=== PATIENT | male | born 1975 | race Caucasian/White ===

== ENCOUNTER → 2025-02-17 13:55 | Outpatient (REF) | payer OTHER, SELFPAY | LOC: HWRAD 13:55 | PROVIDERS: ATTENDING PHYSICIAN Thoracic Surgery (Cardiothoracic Vascular Surgery); FAMILY PHYSICIAN Family Medicine | DX: I25.10 Atherosclerotic heart disease of native coronary artery without angina pectoris (principal); Z01.810 Encounter for preprocedural cardiovascular examination | CPT/HCPCS: 71250 ==

== ENCOUNTER → 2025-02-20 14:41 | Outpatient (REF) | payer OTHER, SELFPAY | LOC: HWRCS 14:41 | PROVIDERS: ATTENDING PHYSICIAN Thoracic Surgery (Cardiothoracic Vascular Surgery); FAMILY PHYSICIAN Family Medicine | DX: I25.10 Atherosclerotic heart disease of native coronary artery without angina pectoris (principal); Z01.810 Encounter for preprocedural cardiovascular examination | CPT/HCPCS: 93306 ==

== ENCOUNTER 2025-02-24 17:36 | Inpatient (IN) | payer OTHER, SELFPAY ==
[2025-02-21 12:08] VITALS: BMI 29.8
[2025-02-21 12:59] LABS: Urine Albumin 2+ (Neg - Trace); Urine Bilirubin 1+ (Negative); Urine Character Clear (Clear); Urine Color Yellow; Urine Glucose Negative (Negative); Urine Ketone 1+ (Negative); Urine Leukocyte 2+ (Negative); Urine Nitrite Negative (Negative); Urine Occult Blood Negative (Negative); Urine Specific Gravity 1.015 (<1.030); Urine Urobilinogen 1+ (Neg - 1+)
[2025-02-21 13:01] LABS: % Basophils 0.8 % (0-2); % Eosinophils 3.3 % (0-6); % Immature Granulocytes 0.3 % (0-0.5); % Lymphocytes 15.1 % (20.5-51.1); % Monocytes 12.9 % (1.7-9.3); % Neutrophils 67.6 % (42.2-75.2); Absolute Basophils 0.1 10^3/uL (0-0.2); Absolute Eosinophils 0.2 10^3/uL (0-0.7); Absolute Monocytes 0.8 10^3/uL (0.1-0.6); Absolute Neutrophils 4.3 10^3/uL (1.4-6.5); Hematocrit 32.9 % (39.0-52.0); Hemoglobin 10.3 g/dL (13.0-18.0); Mean Corp Hgb Conc. 31.3 g/dL (33.0-37.0); Mean Corpuscular Hgb 23.6 pg (27.0-31.0); Mean Corpuscular Volume 75.3 fL (80.0-94.0); Mean Platelet Volume 8.9 fL (7.4-10.4); Nucleated Red Blood Cells % 0 % (-); Platelet Count 315 10^3/uL (130-400); Red Blood Cell Count 4.37 10^6/uL (4.70-6.10); Red Cell Dist. Width 15.6 % (11.5-14.5); White Blood Cell Count 6.4 10^3/uL (4.8-10.8)
[2025-02-21 13:06] LABS: APTT 25.8 Sec (23.4-35.0); INR 0.95
[2025-02-21 13:18] LABS: ALT (SGPT) 13 U/L (0-50); AST (SGOT) 23 U/L (17-59); Albumin 4.2 g/dl (3.5-5.0); Alkaline Phosphatase 44 U/L (38-126); Blood Urea Nitrogen 7 mg/dl (9-20); Calcium 8.7 mg/dl (8.4-10.2); Carbon Dioxide 25 mmol/L (22-30); Chloride 103 mmol/L (98-107); Direct Bilirubin 0.3 mg/dl (0.0-0.4); Estimated Creatinine Clearance 119 ml/min; Glucose 108 mg/dl (70-99); Potassium 4.2 mmol/L (3.5-5.1); Sodium 137 mmol/L (135-145); Total Bilirubin 0.6 mg/dl (0.2-1.3); Total Protein 6.6 g/dl (6.3-8.2); eGFR > 60.00
[2025-02-21 13:23] LABS: Urine Mucus Few; Urine Squamous Cell 0-2 /LPF (Few)
[2025-02-21 13:24] LABS: Urine Bacteria Few (Negative); Urine Red Blood Cell 0-2 /HPF (0-2)
--- NOTE | 2025-02-21 13:39 | CM ---
Chart reviewed. Met with the patient in PAT. Reviewed preoperative and postoperative instructions and restrictions, along with the showering guidelines. Gave patient 2 soaps and Cardiac Surgery Book. Patient is agreeable to a home visit by CT
Transitional RN. Patient is independent of ADLS, lives alone in a 2 [address], 1 [address]AN[address], 0 DME. Patient said his sisters and girlfriend will be able to help when discharged. Plan is for the patient to return home with CT Transitional RN.
[2025-02-21 14:50] LABS: Glycohemoglobin (HgbA1c) 5.9 % (4.0-5.6)
[2025-02-24 14:21] VITALS: BP 143/85; BMI 29.9
--- NOTE | 2025-02-24 14:32 | ED.GENMED ---
History of Present Illness
General
Chief Complaint: Chest Pain
Source: patient
Exam Limitations: none
Time Seen by Provider: 02/24/25 14:31
Nursing documentation reviewed up to this point in time: agreed with
History of Present Illness
History of Present Illness:
49 yo male w h/o bipolar disorder, alcoholism, diabetic retinopathy, neuropathy, anxiety, PSD, CAD, IDDM, anemia, HTN, HLD, STEMI, GERD, diverticulitis with perforation and abscess, hemicolectomy with colostomy,, ileostomy, CABG with 1 stent 02/21 at
[facility], presents today for mid nonradiating chest pressure at 12 noon today while sitting at his computer, , no associated symptoms, after pain lasted for 20 minutes he took 4 baby aspirin and states the pain subsided immediately. No associated
symptoms such as diaphoresis, N/V, lightheadedness or shortness of breath. He states he is pain-free at this time
He is scheduled for triple bypass with Dr. Valdivia on 03/01
Past History
Past History
ED Past Medical History: IDDM and Psychiatric (Bipolar Disorder)
ED Past Surgical History: Appendectomy, Bowel resection, Cholecystectomy and Other (Hip Surgery)
Social History
Tobacco: Former smoker
Alcohol: None
Drug: Former user
Personal: Single
Living: alone
Employment: Employed
Review of Systems
Review of Systems
Allergies reviewed?: Yes
All Other Systems: ROS reviewed and negative except as documented in HPI and ROS
Constitutional: Denies fever or fatigue
Respiratory: Denies no symptoms
Cardiac: Reports chest pain; Denies diaphoresis or palpitations
ABD/GI: Denies abdominal pain or nausea
: Denies dysuria or difficulty voiding
Musculoskeletal: Reports no symptoms
Skin: Reports no symptoms
Neurological: Reports no symptoms
Phy Exam
Physical Exam
Physical Exam:
GENERAL: No acute distress. A&Ox3.
CONSTITUTIONAL: Afebrile.
EYES: clear, conjunctivae normal
ENMT: moist mucus membranes
RESPIRATORY: Regular respirations, nonlabored, lungs clear.
CARDIOVASCULAR: Regular rate and rhythm, no murmurs, no rubs.
GI: Soft, nontender, normal BS
MUSCULOSKELETAL: Moves with ease. Well perfused.
SKIN: Warm, dry, pink
PSYCH: Normal mood and affect. Well kept, interactive and appropriate
NEUROLOGIC: Awake, alert and oriented. No focal neurological deficits
Scores
Heart Score for Chest Pain Patients
STEMI patient?: Not applicable
Course
Orders/Labs/Results
Orders:
Orders
02/24/25 Breakfast
2000 calorie (17 carb) Diabetic
At Your Request: Full Participation
02/24/25 14:16
ECG [Electrocardiogram (*1)] Urgent
Reason for Study: Chest Pain
02/24/25 14:17
EKG- Treatment ONCE
02/24/25 14:32
Complete Blood Count/With Diff Urgent
Comprehensive Metabolic Panel Urgent
Troponin I Urgent
02/24/25 16:28
Cardiothoracic Surgery Consult Urgent
Consulting Provider: William Valdivia
Was physician already notified: Yes
Reason for Consult: CP, sched for bypass in 5 days
02/24/25 16:35
Protime/PTT Urgent
02/24/25 16:52
Lorazepam [Ativan] 0.5 mg PO NOW STA
02/24/25 16:54
CARDIOLOGY CONSULT Routine
Consulting Provider: Storm Watson
Was physician already notified: Yes
02/24/25 16:57
Admit/Transfer Patient As Directed
Co-Sign Provider:
Level of Care: Inpatient admission
Assign to:: Telemetry
Physician / Group: kailey
Diagnosis: chest pain
Reason for Telemetry: Chest Pain syndromes
Date to Stop Telemetry: 02/26/25
Time to Stop Telemetry: 11:00
Reason for Hospitalization: chest pain
Expected length of stay greater than two midnights?: Yes
ELOS- Estimated Length of Stay in days: 3
I certify the patient meets the requirements for IP care: Yes
PRN Pain Medication Management As Directed
May give lesser potent ordered pain med per pt: Yes
preference::
Protocol:: Medication orders for pain may be administered in a
manner that supports deferring to patient preference
when the pt is:
- Requesting an ordered lesser potent pain medication.
Least to most potent pain medications are defined
as: acetaminophen < NSAID < tramadol < opioids
(morphine, oxycodone, hydromorphone).
- Requesting a lesser dose of the same medication IF
ORDERED.
- Requesting a less intrusive route of administration
if both routes are prescribed by the provider (PO <
IV).
02/24/25 17:00
Code Status As Directed
Resuscitation Status: Full Code
02/24/25 17:03
Heparin Protocol- PTT Orders As Directed
PTT per Heparin protocol: -Obtain CBC and baseline PTT - if not already collected.
-Obtain PTT 6 hours from start of infusion. Then, every 6 hours until 2 consecutive
PTT's are therapeutic. Then, PTT Daily.
-With each rate change, obtain PTT every 6 hours until 2 consecutive PTT's are
therapeutic. Then, PTT Daily.
Notify MD As Directed
Notify physician if: PTT is greater than or equal to 200.
02/24/25 17:15
Heparin 78625 Units/250 ml 25,000 units in 250 ml IV PER PROTOCOL
Weight to be used for heparin protocol in kilograms (kg):: 100
Protocol:: Cardiac Tx/Acute Coronary
PTT Goal Range to be used:: PTT 73 to 111 seconds
Order type:: Initial
INITIAL Infusion Dose (UNITS/KG/hr) & then follow protocol:: 12 units/kg/hr
Infusion Dose in UNITS/hr & then follow protocol (UNITS/hr):: 1,000
INFUSION RATE in mL/hr & then follow protocol (mL/hr):: 10
PTT less than or equal to 64 seconds:: Increase rate by 200 units/hr (+ 2 mL/hr)
PTT 64.1 to 72.9 seconds:: Increase rate by 100 units/hr (+ 1 mL/hr)
PTT 73 to 111 seconds:: Target Range. No change in rate.
PTT 111.1 to 130.9 seconds:: Decrease rate by 100 units/hr (- 1 mL/hr)
PTT 131 to 199.9 seconds:: HOLD for 1 hr. Then decrease rate by 200 units/hr (- 2 mL/hr)
PTT greater than or equal to 200 seconds:: HOLD for 2 hrs & Notify Provider. Then decrease by 200 units/hr (-
2 mL/hr)
Lab follow-up:: Each change, PTT q6h until 2 consecutive are therapeutic. Then PTT
daily.
02/26/25 06:00
Complete Blood Count/No Diff Q2D
Comment: Notify MD if platelet count is <130,000 or decreases by 50% from baseline
02/26/25 11:00
DC Protocol for Telemetry ONCE
02/28/25 06:00
Complete Blood Count/No Diff Q2D
Comment: Notify MD if platelet count is <130,000 or decreases by 50% from baseline
03/02/25 06:00
Complete Blood Count/No Diff Q2D
Comment: Notify MD if platelet count is <130,000 or decreases by 50% from baseline
03/04/25 06:00
Complete Blood Count/No Diff Q2D
Comment: Notify MD if platelet count is <130,000 or decreases by 50% from baseline
03/06/25 06:00
Complete Blood Count/No Diff Q2D
Comment: Notify MD if platelet count is <130,000 or decreases by 50% from baseline
03/08/25 06:00
Complete Blood Count/No Diff Q2D
Comment: Notify MD if platelet count is <130,000 or decreases by 50% from baseline
03/10/25 06:00
Complete Blood Count/No Diff Q2D
Comment: Notify MD if platelet count is <130,000 or decreases by 50% from baseline
03/12/25 06:00
Complete Blood Count/No Diff Q2D
Comment: Notify MD if platelet count is <130,000 or decreases by 50% from baseline
Abnormal Lab Results
02/24/25
14:32
RBC 4.28 L 10^6/uL
(4.70-6.10)
Hgb 10.2 L g/dL
(13.0-18.0)
Hct 33.1 L %
(39.0-52.0)
MCV 77.3 L fL
(80.0-94.0)
MCH 23.8 L pg
(27.0-31.0)
MCHC 30.8 L g/dL
(33.0-37.0)
RDW 15.9 H %
(11.5-14.5)
Absolute Lymphs (auto) 0.7 L 10^3/uL
(1.2-3.4)
Lymphocytes % 11.7 L %
(20.5-51.1)
Monocytes % 10.3 H %
(1.7-9.3)
BUN 8 L mg/dl
(9-20)
Glucose 291 H mg/dl
(70-99)
Troponin I 0.044 H* ng/ml
Total Protein 6.1 L g/dl
(6.3-8.2)
02/24/25 17:03
02/24/25 14:32
Vital Signs
Initial and Last Documented VS:
Initial Vital Signs
Pulse Resp BP Pulse Ox
92 16 143/85 96
02/24/25 14:21 02/24/25 14:21 02/24/25 14:21 02/24/25 14:21
Last Documented Vital Signs
Temp Pulse Resp BP Pulse Ox
98.5 F 88 16 149/86 98
02/24/25 14:31 02/24/25 17:00 02/24/25 17:00 02/24/25 16:00 02/24/25 17:00
MDM/Problems Addressed
Differential Diagnosis Includes:
ACS, unstable angina
MDM/Problems Addressed:
49 yo male w h/o bipolar disorder, alcoholism, diabetic retinopathy, neuropathy, anxiety, PSD, CAD, IDDM, anemia, HTN, HLD, STEMI, GERD, diverticulitis with perforation and abscess, hemicolectomy with colostomy,, ileostomy, CABG with 1 stent 02/21 at
[facility], presents today for mid nonradiating chest pressure at 12 noon today while sitting at his computer, after lasting for 20 minutes he took 4 baby aspirin and states the pain subsided immediately. No associated symptoms such as diaphoresis, N/V,
lightheadedness or shortness of breath. He states he is pain-free at this time
EKG NSR, no change from previous
He is scheduled for triple bypass with Dr. Valdivia on 03/01
2:45 p.m.
CBC unremarkable, consistent with his baseline anemia
CMP: No clinically significant abnormality. Glucose 291
Troponin 0.044
3:45 PM:
Case presented via text to cardiothoracic surgeon Dr. Valdivia and shake table operator Dr. Hernandez
Pt updated
4:30 p.m.:
Cardiothoracic surgery PA notified of admission. CT consult in
Hospitalist notified of admission
Patient remained stable
*EKG
EKG Intrepretation Date: 02/24/25
Interpretation: normal
Heart Rate: 92
Rate: normal
Rhythm: sinus
[place]: normal axis
Interval: normal interval
QRS Pattern: normal QRS
Ischemia: no ischemia
*Critical Care Note
Total Time (30-74mins, 75-104mins- exclusive of procedures): Not Applicable
ED Attending Note
-
Portions of this chart may have been created with voice recognition software.� Occasional wrong word or��sound alike� substitutions may have occurred due to the inherent limitations of voice recognition software.
Discharge Plan
Departure
Patient Disposition: Admit
Date of Disposition: 02/24/25
Time of Disposition: 16:17
Admit to: Telemetry
Presentation/result/management discussed w/ accepting MD/DO: Hospitalist
Condition: Good
Discharge Problem:
Chest pain
Interventions
Interventions:
*Risk Screen - Suicide Last Done: 02/24/25 14:21
*General Assessment Last Done: 02/24/25 14:21
*Neglect/Abuse Screening Last Done: 02/24/25 14:21
*Nursing Disposition Last Done: 02/24/25 19:06
ED- Cardiac Assessment Last Done: 02/24/25 14:18
Discharge Date and Time
Discharge Date/Time: 02/24/25 19:07
[2025-02-24 14:37] LABS: % Basophils 0.8 % (0-2); % Eosinophils 3.4 % (0-6); % Immature Granulocytes 0.3 % (0-0.5); % Lymphocytes 11.7 % (20.5-51.1); % Monocytes 10.3 % (1.7-9.3); % Neutrophils 73.5 % (42.2-75.2); Absolute Basophils 0.1 10^3/uL (0-0.2); Absolute Eosinophils 0.2 10^3/uL (0-0.7); Absolute Lymphocytes 0.7 10^3/uL (1.2-3.4); Absolute Monocytes 0.6 10^3/uL (0.1-0.6); Absolute Neutrophils 4.5 10^3/uL (1.4-6.5); Hematocrit 33.1 % (39.0-52.0); Hemoglobin 10.2 g/dL (13.0-18.0); Mean Corp Hgb Conc. 30.8 g/dL (33.0-37.0); Mean Corpuscular Hgb 23.8 pg (27.0-31.0); Mean Corpuscular Volume 77.3 fL (80.0-94.0); Mean Platelet Volume 8.7 fL (7.4-10.4); Nucleated Red Blood Cells % 0 % (-); Platelet Count 306 10^3/uL (130-400); Red Blood Cell Count 4.28 10^6/uL (4.70-6.10); Red Cell Dist. Width 15.9 % (11.5-14.5); White Blood Cell Count 6.1 10^3/uL (4.8-10.8)
[2025-02-24 14:49] LABS: ALT (SGPT) 13 U/L (0-50); AST (SGOT) 18 U/L (17-59); Albumin 3.8 g/dl (3.5-5.0); Alkaline Phosphatase 44 U/L (38-126); Blood Urea Nitrogen 8 mg/dl (9-20); Calcium 8.7 mg/dl (8.4-10.2); Carbon Dioxide 27 mmol/L (22-30); Chloride 105 mmol/L (98-107); Estimated Creatinine Clearance 108 ml/min; Glucose 291 mg/dl (70-99); Potassium 4.6 mmol/L (3.5-5.1); Sodium 140 mmol/L (135-145); Total Bilirubin 0.4 mg/dl (0.2-1.3); Total Protein 6.1 g/dl (6.3-8.2); eGFR > 60.00
[2025-02-24 15:00] VITALS: BP 161/81
[2025-02-24 15:04] LABS: Troponin I 0.044 ng/ml
[2025-02-24 16:00] VITALS: BP 149/86
--- NOTE | 2025-02-24 16:30 | HPS.HSE ---
Addendum entered and electronically signed by Phan Wiggins MD 02/24/25 17:13:
see update note for addendum
Original Note:
Family Physician
-
Family Physician: Mary Sewell
Chief Complaint
-
chest pain
History of Present Illness
49 yo male w h/o bipolar disorder, alcoholism, diabetic retinopathy, neuropathy, anxiety, PSD, CAD, IDDM, anemia, HTN, HLD, STEMI, GERD, diverticulitis with perforation and abscess, hemicolectomy with colostomy,, ileostomy, CABG with 1 stent 02/21 at
[facility], presents today for mid nonradiating chest pressure at 12 noon today while sitting at his computer. denied radiating or exertional pain. denied sob. denied [place], dizzy or syncope. denied fever, chills, cough and congestion. denied abdominal
pain,n,v,d. denied dysuria or hematuria.
upon arrival noted to have elevated trop.admitting for further management.
Medical History
Past Medical History
Past Medical History: Reports Other
Additional Past Medical History:
Bipolar disorder, alcoholism
, Neuropathy, anxiety, PTSD, CAD, anemia, hypertension, type 2 diabetes, hyperlipidemia, tremor, STEMI, spinal stenosis, pulmonary embolism, GERD
Past Surgical History: Reports Other
Additional Past Surgical History:
Hemicolectomy, colostomy, hydrocelectomy, right hip resurfacing, ileostomy
Social History
Tobacco: Non-smoker
Alcohol: None
Drug: None
Living: With Family
Family History
Family History: Not pertinent
Allergies / Home Medications
Allergies reflects when Allergies were last updated in [employer].
Home Medications with original date entered in [employer]
Allergy/Medication List:
Allergies
Allergy/AdvReac Type Severity Reaction Status Date / Time
Iodinated Contrast Media Allergy Unknown Hives Verified 02/24/25 14:26
Penicillins Allergy Anaphylaxis Verified 02/24/25 14:25
Home Medications
aspirin 81 mg tablet,delayed release 81 mg PO DAILY Blood clot prevention/tx 03/09/23
baclofen 10 mg tablet 10 mg PO BID 03/09/23
quetiapine 400 mg tablet 400 mg PO HS Mental Health/Anxiety 03/09/23
atorvastatin 40 mg tablet 80 mg PO DAILY 02/21/25
buprenorphine 8 mg-naloxone 2 mg sublingual tablet 1 tab sublingual DAILY 02/21/25
buspirone 10 mg tablet 10 mg PO BID 02/21/25
insulin glargine 100 unit/mL (3 mL) subcutaneous pen 29 unit SC HS 02/21/25
lisinopril 5 mg tablet 5 mg PO DAILY 02/21/25
melatonin 10 mg tablet 10 mg PO HS 02/21/25
metoprolol succinate 25 mg tablet,extended release 24 hr 25 mg PO DAILY 02/21/25
pantoprazole 40 mg tablet,delayed release 40 mg PO DAILY 02/21/25
ticagrelor 90 mg tablet (Brilinta) 90 mg PO BID 02/21/25
Review of Systems
-
Constitutional: Reports No Symptoms
EENT: Reports No Symptoms
Respiratory: Reports No Symptoms
Cardiac: Reports Chest Pain
Abdomen/GI: Reports No Symptoms
: Reports No Symptoms
Musculoskeletal: Reports No Symptoms
Skin: Reports No Symptoms
Neurological: Reports No Symptoms
Endocrine: Reports No Symptoms
Hematologic/Lymphatic: Reports No Symptoms
Psych: Reports No Symptoms
Physical Exam
Vital Signs
Vital Signs
Temp Pulse Resp BP Pulse Ox
98.5 F 92 16 143/85 96
02/24/25 14:31 02/24/25 14:21 02/24/25 14:21 02/24/25 14:21 02/24/25 14:21
Physical Exam
General: Well Developed, Well Nourished and No Apparent Distress
HEENT: NormoCephalic, Moist mucous membranes and Atraumatic
Respiratory: Clear
Cardiac: S1/S2 and Regular Rhythm; No Murmur or Rub
GI: Soft, Non Tender, Non Distended and Normal Bowel Sounds; No Organomegaly
Rectal: Deferred by Provider
Musculoskeletal: No Clubbing, No Cyanosis and No Edema
Skin: No Rash
Neuro: AO x 3 and Nonfocal/grossly intact
Psych: Calm
Laboratory Results
-
02/24/25 14:32
02/24/25 14:32
Laboratory Results
Total Bilirubin 0.4 mg/dl (0.2-1.3) 02/24/25 14:32
AST 18 U/L (17-59) 02/24/25 14:32
ALT 13 U/L (0-50) 02/24/25 14:32
Alkaline Phosphatase 44 U/L (38-126) 02/24/25 14:32
Troponin I 0.044 ng/ml H* 02/24/25 14:32
Data Reviewed
-
Lab Data: Labs Reviewed by me
Impression/Plan
-
# Chest pain/ NSTEMI
#CAD plan for CABG next week
- Troponin 0.044
- Continue to trend Trope
- EKG with normal sinus rhythm
-recent stenting to mid RCA
-asa, statin continued
-hold Brilinta
-initiated on heparin drip
# Anemia of chronic disease
- Hemoglobin stable at 10.2
- No active bleeding
- Continue to monitor
#muscle spasms
-baclofen continued
#Bipolar disorder
-buspirone continued
#type 2 Dm
-Lantus continued
-sliding scale
-CHO diet
#Benign essential hypertension
-lisinopril 5 mg daily
-metoprolol,Seroquel continued
#GERD
-PPI continued
#History of diverticulitis status post colon resection
#History of IV drug use
-naloxone
DVT prophylaxis�SCDs
Full code
--- NOTE | 2025-02-24 16:47 | CONSULT.CT ---
Consultation
-
Date/Time Consultation Requested: 02/24 1640
Date/Time Consultation Performed: 02/248
Requesting Provider: Phan LIMON
Performing Provider: Any Valdivia MD
Reason for Consultation: CAD/CABG
Patient History
Physicians
Family Physician: Dr. Pat Sewell
Outpatient Fabric Separator Operator: Dr. Hernandez
Inpatient Fabric Separator Operator: REBECCA
History of Present Illness
This is a 50-year-old male who recently presented to the hospital in a form of a ST elevation DE and underwent emergency stenting on 01/20 to the proximal to mid RCA. He had residual left-sided CAD with a proximal OM lesion of approximately 60 to
70% and a long segment proximal LAD tubular lesion along with 70 to 80% of the proximal diagonal vessel. Prior to the stent patient would complain of chest burning and left arm pain with pressure however he did feel normal when he met with Dr. Valdivia
on 02/09. However patient has been complaining of chest pain since 12 PM today while sitting at his computer. His pain lasted for about 20 minutes and after that he took 4 baby aspirin's and he states that his pain then subsided. He presented to
the emergency room where she was found to have a slightly elevated troponin of 0.044. The original plan was for him to have surgery with Dr. Valdivia on 03/01 however given the symptoms patient will be admitted for further work up.
Of note patient was supposed to meet with a chest pain coordinator to transition off Suboxone on Thursday.
Past Medical History
Past Medical History: Other
STEMI w/SCARLETT-RCA 01/20/25, DM, bipolar, PTSD, DM retinopathy & neuropathy, HTN, HLD, spinal stenosis, PE, GERD, anemia, c-diff,
ETOH abuse
SBO
Past Surgical History
Past Surgical History: PCI/Stent and Other
doug colectomy
Family History
Family Medical History: CAD
Social History
Alcohol: Chronic Alcoholic
Drug: None
Tobacco: Former Smoker
Living: With Family
Employment: Employed
Allergies
Allergy/AdvReac Type Severity Reaction Status Date / Time
Iodinated Contrast Media Allergy Unknown Hives Verified 02/24/25 14:26
Penicillins Allergy Anaphylaxis Verified 02/24/25 14:25
Home Medications
�Medication �Instructions �Recorded �Confirmed �Type
aspirin 81 mg tablet,delayed 81 mg PO DAILY Blood clot 03/09/23 02/24/25 History
release prevention/tx
baclofen 10 mg tablet 10 mg PO BID 03/09/23 02/24/25 History
quetiapine 400 mg tablet 400 mg PO HS Mental Health/Anxiety 03/09/23 02/24/25 History
atorvastatin 40 mg tablet 80 mg PO DAILY 02/21/25 02/24/25 History
buprenorphine 8 mg-naloxone 2 mg 1 tab sublingual DAILY 02/21/25 02/24/25 History
sublingual tablet
buspirone 10 mg tablet 10 mg PO BID 02/21/25 02/24/25 History
insulin glargine 100 unit/mL (3 29 unit SC HS 02/21/25 02/24/25 History
mL) subcutaneous pen
lisinopril 5 mg tablet 5 mg PO DAILY 02/21/25 02/24/25 History
melatonin 10 mg tablet 10 mg PO HS 02/21/25 02/24/25 History
metoprolol succinate 25 mg 25 mg PO DAILY 02/21/25 02/24/25 History
tablet,extended release 24 hr
pantoprazole 40 mg tablet,delayed 40 mg PO DAILY 02/21/25 02/24/25 History
release
ticagrelor 90 mg tablet (Brilinta) 90 mg PO BID 02/21/25 02/24/25 History
Review of Systems
-
History Source: Patient
General: Reports No Symptoms
HEENT: Reports No Symptoms
Respiratory: Reports No Symptoms
Cardiac: Reports Chest Pain and CAD
Abdomen/GI: Reports No Symptoms
: Reports No Symptoms
Musculoskeletal: Reports No Symptoms
Skin: Reports No Symptoms
Neurological: Reports No Symptoms
Vascular: Reports No Symptoms
Physical Exam
Vital Signs
Temp 98.5 F 02/24/25 14:31
Temp route: Oral 02/24/25 14:31
Pulse 92 02/24/25 14:21
Resp Rate 16 02/24/25 14:21
Blood pressure 143/85 02/24/25 14:21
SaO2 96 02/24/25 14:21
Oxygen Mode of Delivery Room air 02/24/25 14:21
Actual Weight 100 kg 02/24/25 14:21
Body Mass Index (BMI) 29.9 02/24/25 14:21
Labs
02/24/25 14:32
02/24/25 14:32
Troponin I 0.044 ng/ml H* 02/24/25 14:32
Exam
General: Well Developed, Well Nourished and No Apparent Distress
HEENT: Normocephalic
Respiratory: Clear
Cardiac: S1/S2 and Regular Rhythm
GI: Soft, Non Tender and Other (OBESE)
Rectal: Deferred by Provider
Skin: Warm
Neuro: AO x 3
Lymph: No Lymphadenopathy
Psych: Other (ANXIOUS)
Assessment / Plan
-
49-year-old male known to Dr. Valdivia presents to the emergency room with C/O chest pain. CT surgery was consulted.
#CAD
-Patient's case was discussed with attending. Will continue to monitor for signs and symptoms of ACS.
- Last dose of Brilinta was on 03/23; okay to start heparin gtt
-Continue to monitor for chest pain; patient may need nitro infusion
- Continue aspirin
#History of substance abuse
-Patient is currently on Suboxone daily
-Per patient he was supposed to meet with pain management Dr. Miller on Thursday to transition to Subutex.
- Will follow-up with his outpatient chest pain coordinator on Thursday.
[2025-02-24 16:53] LABS: APTT 25.3 Sec (23.4-35.0); INR 0.98; PT 13.3 Sec (11.4-14.6)
--- NOTE | 2025-02-24 17:03 | W.PN.UPDATE ---
Update Note
Progress Note Update
I saw and examined the patient.
The [employer]ANT OPERATOR Arslan's note was reviewed and I agree with the note.
Comment: 49 y/o M with known triple vessel CAD, h/o bipolar disorder, alcoholism, diabetic retinopathy, neuropathy, anxiety, PSD, CAD, IDDM, anemia, HTN, HLD, STEMI, GERD, diverticulitis with perforation and abscess, hemicolectomy with colostomy,,
ileostomy, CABG with 1 stent 02/21 at [facility] presents to ER for mid chest pain, nonradiating while sitting at his computer. He immediately took 4 aspirin, and symptoms resolved after 20 mins. No associated symptoms such as diaphoresis, N/V,
lightheadedness or shortness of breath. He states he is pain-free at this time
in ER, found to have mild trop elevation of 0.044.
He is scheduled for triple bypass with Dr. Valdivia on 03/01
Physical Exam
GENERAL: No acute distress. A&Ox3.
CONSTITUTIONAL: Afebrile.
EYES: clear, conjunctivae normal
ENMT: moist mucus membranes
RESPIRATORY: Regular respirations, nonlabored, lungs clear.
CARDIOVASCULAR: Regular rate and rhythm, no murmurs, no rubs.
GI: Soft, nontender, normal BS
MUSCULOSKELETAL: Moves with ease. Well perfused.
SKIN: Warm, dry, pink
PSYCH: Normal mood and affect. Well kept, interactive and appropriate
NEUROLOGIC: Awake, alert and oriented. No focal neurological deficits
Assessment:
Chest pain
Troponin elevation
known triple vessel CAD
- trend trops
- IV Heparin - requires intensive monitoring of PTTs
- ASA/statin
- hold Brilinta in case of change in CABG date (currently 03/01)
- DCA Cards
- CTS consult
Anemia of chronic disease
- Hemoglobin stable at 10.2
- No active bleeding
- Continue to monitor
muscle spasms
- baclofen continued
Bipolar disorder
- buspirone/Seroquel continued
Type 2 DM
- Lantus continued
- sliding scale
- CHO diet
Benign essential hypertension
- lisinopril/metoprolol
GERD
- PPI continued
History of diverticulitis status post colon resection
History of IV drug use
- naloxone
DVT prophylaxis: IV Heparin
Code: Full
[2025-02-24] MEDS: ATIVAN 0.5 MG PO (17:28)
[2025-02-24] MEDS: HEPARIN 25000 UNITS/250 ML IV (17:45)
[2025-02-24 19:26] VITALS: BP 124/73
[2025-02-24 19:31] VITALS: BMI 29.1
[2025-02-24 20:15] LABS: Hematocrit 31.3 % (39.0-52.0); Hemoglobin 9.7 g/dL (13.0-18.0); Mean Corpuscular Hgb 23.6 pg (27.0-31.0); Mean Corpuscular Volume 76.2 fL (80.0-94.0); Mean Platelet Volume 9.1 fL (7.4-10.4); Platelet Count 318 10^3/uL (130-400); Red Blood Cell Count 4.11 10^6/uL (4.70-6.10); Red Cell Dist. Width 15.7 % (11.5-14.5); White Blood Cell Count 6.7 10^3/uL (4.8-10.8)
[2025-02-24 20:50] LABS: Troponin I 0.155 ng/ml
[2025-02-24] MEDS: BUSPAR 10 MG PO (21:06)
[2025-02-24] MEDS: LIORESAL 10 MG PO (21:06)
[2025-02-24] MEDS: MELATONIN 10 MG PO (21:09)
[2025-02-24] MEDS: SEROQUEL 400 MG PO (21:09)
[2025-02-24 22:16] LABS: Glucose - Point of Care 113 mg/dl (70-99)
[2025-02-24] MEDS: LANTUS 0.2 UNITS SC (22:18)
[2025-02-24 22:29] VITALS: BP 127/57
--- NOTE | 2025-02-24 23:56 | PTCARENOTE ---
pt admitted to room 2241 with chest pain. On arrival pt denied any pain or discomfort. Pt on heparin gtt. NSR on monitor, VSS. Pt ambulates independently. Pt oriented to room, call bhat in reach
[2025-02-24 23:57] LABS: APTT 29.7 Sec (23.4-35.0)
[2025-02-25 00:12] LABS: Troponin I 0.201 ng/ml
[2025-02-25 03:06] VITALS: BP 126/74
[2025-02-25 06:32] LABS: APTT 33.7 Sec (23.4-35.0)
[2025-02-25 06:46] LABS: Troponin I 0.168 ng/ml
[2025-02-25 06:47] LABS: HDL Cholesterol 26 mg/dl; LDL Cholesterol, Calculated 43 mg/dl; Total Cholesterol 88 mg/dl (50-199); Triglyceride 95 mg/dl (10-149); Very Low Density Lipoprotein 19 mg/dl (0-30)
[2025-02-25 07:00] VITALS: BP 125/63
--- NOTE | 2025-02-25 07:01 | CON.CAR ---
Addendum entered and electronically signed by Storm Watson MD 02/25/25 13:29:
I saw and examined the patient.
The Cutter Operator [employer]bestos Shingle's note was reviewed and I agree with the note.
Comment: Briefly, 49-year-old man with known multivessel CAD and history of inferior STEMI treated at [facility] 01/20/2025 who presented yesterday with substernal chest discomfort found to have rise and fall in troponin peaking at 0.201 consistent
with NSTEMI.
At the time of my evaluation he was resting comfortably in bed and tells me he had no further chest discomfort beyond the initial episode yesterday
Maintaining sinus rhythm on telemetry
Agree with medical management: aspirin, high intensity statin, beta-ez, heparin drip
Tentatively planned for CABG this coming week with Dr. Valdivia therefore Brilinta is on hold
Rest per Janiya Rockwell
Original Note:
Consultation
Consultation Request
Date/Time Consultation Requested: 02/24/2025, 1654
Date/Time Consultation Performed: 02/25/2025 0700
Requesting Provider: PORFIRIO Marino
Performing Provider: PORFIRIO Plaza for Dr. Watson
Reason for Consultation: Chest pain, upcoming CAD w/ upcoming CABG
Medical History
-
Chief Complaint: Chest pain
History of Present Illness:
49-year-old male with history of ST elevation TN and emergency stenting of the proximal to mid RCA on 01/20/[address] [facility] [address] Hernandez. He had residual left-sided CAD with a proximal OM lesion of 60 to 70% and a long segment proximal tubular
LAD lesion and slightly kinked portion of mid LAD, with large diagonal vessel with 70 to 80% proximal disease. He was evaluated by Dr. Valdivia and CABG x 3 was advised after he completed 30 days of dual antiplatelet therapy and to allow 7 days off
Brilinta prior to surgery. His symptoms of chest burning and left arm pain with pressure were relieved after stenting. He also has a history of type 2 diabetes, hypertension, hyperlipidemia, bipolar d/o, h/o alcoholism, anxiety, PTSD, see below
for rest of PMH. He is on Suboxone and was going to meet with his industrial painter on 02/27/2025 to transition off med prior to surgery.
He is scheduled for CABG x 3 (GALLEGO to LAD, radial to OM with sequential to diagonal), +/- RASHAWN clip on 03/01/2025.
Yesterday he developed chest pain while sitting at his computer, lasting 20 minutes. There was no radiation of pain and no associated symptoms. He took 4 baby aspirin and pain subsided. He presented to the ED where he had a troponin of 0.044. He
was admitted for monitoring prior to CABG.
Troponin trends 0.044�0.155�0..168
Twelve-lead EKG, normal sinus rhythm, inferior infarct
Admitted for monitoring prior to CABG, on heparin drip, metoprolol, aspirin, statin, lisinopril.
Past medical history:
CAD-multivessel disease on cath 01/20/2025 status post SCARLETT to proximal to mid RCA 01/20/2025
Type 2 diabetes
Hypertension
Hyperlipidemia
History of alcoholism
Bipolar disorder
Diverticulitis with perforation and abscess
Hemicolectomy with colostomy
Ileostomy
Nonproliferative diabetic retinopathy
Neuropathy
anxiety
PTSD
anemia
Tremor
spinal stenosis
history of PE
GERD
Past Medical History
Past Medical History: Other (As above)
Past Surgical History: Other (As above)
Social History
Tobacco: Former Smoker (Quit August 2020)
Alcohol: None (Active in AA, sober since 2019)
Personal:
Employment: Employed
Family History
Family History: Other (Father age 70s, had CABG, diabetes, mother age 70s, had TN at age 50, lung cancer, sibling with diabetes)
Allergies / Home Medications
Allergy/AdvReac Type Severity Reaction Status Date / Time
Iodinated Contrast Media Allergy Unknown Hives Verified 02/24/25 14:26
Penicillins Allergy Anaphylaxis Verified 02/24/25 14:25
�Medication �Instructions �Recorded �Confirmed �Type
aspirin 81 mg tablet,delayed 81 mg PO DAILY Blood clot 03/09/23 02/24/25 History
release prevention/tx
baclofen 10 mg tablet 10 mg PO BID 03/09/23 02/24/25 History
quetiapine 400 mg tablet 400 mg PO HS Mental Health/Anxiety 03/09/23 02/24/25 History
atorvastatin 40 mg tablet 80 mg PO DAILY 02/21/25 02/24/25 History
buspirone 10 mg tablet 10 mg PO BID 02/21/25 02/24/25 History
insulin glargine 100 unit/mL (3 29 unit SC HS 02/21/25 02/24/25 History
mL) subcutaneous pen
lisinopril 5 mg tablet 5 mg PO DAILY 02/21/25 02/24/25 History
melatonin 10 mg tablet 10 mg PO HS 02/21/25 02/24/25 History
metoprolol succinate 25 mg 25 mg PO DAILY 02/21/25 02/24/25 History
tablet,extended release 24 hr
pantoprazole 40 mg tablet,delayed 40 mg PO DAILY 02/21/25 02/24/25 History
release
ticagrelor 90 mg tablet (Brilinta) 90 mg PO BID 02/21/25 02/24/25 History
buprenorphine 8 mg-naloxone 2 mg 1 film buccal DAILY 02/24/25 02/24/25 History
sublingual film
Review of Systems
-
History Source: Patient
All other systems: Negative unless noted
Physical Exam
Vital Signs
Temp Pulse Resp BP Pulse Ox
98.2 F 81 18 126/74 96
02/25/25 03:04 02/25/25 04:45 02/25/25 03:04 02/25/25 03:06 02/25/25 03:06
Lab Results
02/24/25 20:01
04/25/25 14:32
Troponin I 0.168 ng/ml H* 02/25/25 06:13
GEN: No distress, awake, Ox3
HEENT: supple, anicteric, mmm
LUNGS: CTA, no wheezes/rales
CV: Reg, S1/S2, no murmur
ABD: soft, BS+, NT/ND
EXT: No edema
NEURO: Gross non-focal
SKIN: No rash
Impression / Plan
-
PCP: Mary Edmondson
Primary floor covering installer: Royce Hernandez
Impression:
Chest pain
History of multivessel coronary artery disease scheduled for CABG 03/01/2025
Elevated troponin
ST elevation TN 01/20/2025 with SCARLETT to RCA
Diabetes mellitus
Hypertension
Hyperlipidemia
Bipolar disorder
History of alcoholism
History of drug use, on Suboxone
Anxiety
PTSD
Spinal stenosis
GERD
Anemia
history of PE
Previous cardiovascular testing:
Echo 02/20/2025: Normal LV size, wall thickness, LVEF 50 to 55%, basal inferior hypokinesis, structurally normal mitral valve with mild to moderate MR. Normal RV size and function
Cardiac cath 01/20/2025:prox OM1 60 to 70% stenosis; LAD: prox tubular lesion, slightly kinked midportion of LAD;, D1: large diagonal w/70-80% proximal dz
Plan:
49-year-old male with history of ST elevation TN and emergency stenting of the proximal to mid RCA on 01/20/2025, with residual left-sided CAD with a proximal OM lesion of 60 to 70% and a long segment proximal tubular LAD lesion and slightly kinked
portion of mid LAD, with large diagonal vessel with 70 to 80% proximal disease. He was evaluated by Dr. Valdivia and CABG x 3 was advised after he completed 30 days of dual antiplatelet therapy and to allow 7 days off Brilinta prior to surgery. His
symptoms of chest burning and left arm pain with pressure were relieved after stenting. He also has a history of type 2 diabetes, hypertension, hyperlipidemia, bipolar d/o, h/o alcoholism, anxiety, PTSD, see below for rest of PMH. He is on
Suboxone and was going to meet with his industrial painter on 02/27/2025 to transition off med prior to surgery.
He presented to ED after experiencing chest pain while sitting at his computer on 02/24/2025. No radiation of pain or associated symptoms. No pain since admission. Troponin elevated and peaked at 0.2.
Troponin trends 0.044�0.155�0..168
Twelve-lead EKG, normal sinus rhythm, inferior infarct
He is scheduled for CABG x 3 (GALLEGO to LAD, radial to OM with sequential to diagonal), +/- RASHAWN clip on 03/01/2025.
-Proceed as per CT surgery
-last dose Brilinta 02/21/2025
-heparin gtt
-Currently chest pain-free, has not required nitroglycerin since admission.
- Will check 1 more troponin
- EKG stable showing normal sinus rhythm with inferior infarct. No ST-T wave abnormalities.
- Telemetry personally reviewed: Normal sinus rhythm 70s, had 1 episode of sinus tach overnight with heart rate to 155 bpm.
- Continue beta-ez, statin, aspirin, diabetes control
-will need to wean off Suboxone prior to surgery, he was supposed to meet with his pain technician inventory specialist on Thursday to address this. Depending if he stays, may need to be done in inpatient setting.
Data Reviewed
-
EKG: Tracing Personally Visualized and interpreted
Labs: Labs Reviewed by me
[2025-02-25 07:05] LABS: Glucose - Point of Care 103 mg/dl (70-99)
[2025-02-25] MEDS: LIPITOR 80 MG PO (08:59)
[2025-02-25] MEDS: ZESTRIL 5 MG PO (08:59)
[2025-02-25] MEDS: ASPIR LOW (ENTERIC COATED) 81 MG PO (08:59)
[2025-02-25] MEDS: PROTONIX 40 MG PO (09:00)
[2025-02-25] MEDS: NOVOLOG FLEXPEN-LOW RESISTANCE SC ×2 (09:00→18:08)
[2025-02-25] MEDS: TOPROL XL 25 MG PO (09:00)
[2025-02-25] MEDS: BUSPAR 10 MG PO ×2 (09:02→20:54)
[2025-02-25] MEDS: LIORESAL 10 MG PO ×2 (09:03→20:54)
[2025-02-25] MEDS: SUBUTEX 8 MG SL (09:04)
--- NOTE | 2025-02-25 10:41 | W.PN.UPDATE ---
Update Note
Progress Note Update
STS RISK SCORE
Procedure Type:�Isolated CABG
Perioperative Outcome Estimate %
Operative Mortality 0.354%
Morbidity & Mortality 2.94%
Stroke 0.534%
Renal Failure 0.327%
Reoperation 1.39%
Prolonged Ventilation 1.24%
Deep Sternal Wound Infection 0.226%
Long Hospital Stay (>14 days) 1.28%
Short Hospital Stay (<6 days)* 70.1%
Clinical Summary
Planned Surgery: Isolated CABG, Urgent, First cardiovascular surgery
Demographics: 49 year old, male, 93.89kg, 182.88cm, BMI: 28.1 kg/m�
Lab Values: Creatinine: 0.8 mg/dL, Hematocrit: 32.9%, WBC Count: 6.4 10�/�L, Platelet Count: 244274 cells/�L
PreOp Medications: Insulin diabetes control
Substance Abuse: Former smoker
Risk Factors / Comorbidities: Insulin-dependent Diabetes Mellitus, Hypertension, Family Hx of CAD
Cardiac Status: NYHA Class II, Ejection Fraction = 50%
Coronary Artery Disease: 3 vessels diseased, Proximal LAD Stenosis >=70%, Unstable Angina, [place]: > 21 Days
Valve Disease: Mild MR
Prev. Cardiac Interv: Previous PCI: Not during this episode of care
[2025-02-25] MEDS: ATIVAN 0.5 MG PO (11:19)
--- NOTE | 2025-02-25 11:30 | W.PN.HOSP.TC ---
Today's Communication/Plan
-
continue IV Heparin
awaiting CT surgery as early 02/28
Assessment / Plan
Assessment / Plan
Assessment:
Chest pain
Troponin elevation
known triple vessel CAD
- trop peaked at .201
- IV Heparin - requires intensive monitoring of PTTs
- ASA/statin
- hold Brilinta for scheduled CABG currently 03/01; possibly 02/28 as earliest date
- DCA cardiology and CT Surgery following
Anemia of chronic disease
- Hemoglobin stable at 10.2
- No active bleeding
- Continue to monitor
muscle spasms
- baclofen continued
Bipolar disorder
- buspirone/Seroquel continued
Type 2 DM
- Lantus continued
- sliding scale
- CHO diet
- A1c 5.9%
Benign essential hypertension
- lisinopril/metoprolol
GERD
- PPI continued
History of diverticulitis status post colon resection
History of IV drug use
- hold Subutex
anxiety
- prn Ativan
DVT prophylaxis: IV Heparin
Code: Full
Anticipated Discharge: > 48 hours
Subjective/Interval History
-
Date of Service: February 25, [address] surgery
no chest pain
Objective Data
-
Labs:
Laboratory Results
02/24/25 02/24/25 02/25/25
19:33 23:34 06:13
APTT Cancelled 29.7 33.7
02/25/25
12:45
APTT Pending
Vital Signs:
Vital Signs
Temp Pulse Resp BP Pulse Ox
98.3 F 75 18 125/63 97
02/25/25 06:59 02/25/25 09:30 02/25/25 06:59 02/25/25 07:00 02/25/25 08:33
I&O
02/24/25 02/25/25 02/26/25
06:59 06:59 06:59
Intake Total 400 / 400
Balance 400 / 400
Physical Exam
-
General: No Apparent Distress
HEENT: Normocephalic and Atraumatic
Respiratory: Negative Wheezes
Cardiac: Regular Rhythm and S1/S2
GI: Soft and Nontender
Neuro: AO x 3
Hematologic / Lymphatic: No Lymphadenopathy
Psych: Calm
Data Reviewed
-
Total Time Spent with Patient (in minutes): 51
Labs: Labs Reviewed by me
[2025-02-25 12:21] VITALS: BP 131/71
[2025-02-25 12:36] LABS: Glucose - Point of Care 172 mg/dl (70-99)
[2025-02-25] MEDS: HEPARIN 25000 UNITS/250 ML IV (13:28)
[2025-02-25] MEDS: NOVOLOG FLEXPEN-LOW RESISTANCE 1 UNITS SC (13:29)
[2025-02-25 14:07] LABS: APTT 33.8 Sec (23.4-35.0)
[2025-02-25 14:35] LABS: Troponin I 0.108 ng/ml
[2025-02-25 15:14] VITALS: BMI 29.4
[2025-02-25 15:19] VITALS: BP 128/65
--- NOTE | 2025-02-25 15:50 | PTCARENOTE ---
Pt feeling anxious this am, requested Ativan. Dr Wiggins notified. Ativan 0.5 mg po ordered and given to Pt with relief.
[2025-02-25 18:06] LABS: Glucose - Point of Care 131 mg/dl (70-99)
[2025-02-25 19:22] VITALS: BP 139/76
[2025-02-25] MEDS: SEROQUEL 400 MG PO (20:54)
[2025-02-25] MEDS: MELATONIN 10 MG PO (20:54)
[2025-02-25 21:23] LABS: APTT 42.3 Sec (23.4-35.0)
[2025-02-25] MEDS: LANTUS 0.2 UNITS SC (21:36)
[2025-02-25 21:37] LABS: Glucose - Point of Care 142 mg/dl (70-99)
[2025-02-25 22:43] VITALS: BP 141/78
[2025-02-26 03:44] VITALS: BP 116/75
[2025-02-26 04:15] LABS: Hematocrit 33.4 % (39.0-52.0); Hemoglobin 10.5 g/dL (13.0-18.0); Mean Corp Hgb Conc. 31.4 g/dL (33.0-37.0); Mean Corpuscular Hgb 23.7 pg (27.0-31.0); Mean Corpuscular Volume 75.4 fL (80.0-94.0); Mean Platelet Volume 8.7 fL (7.4-10.4); Platelet Count 286 10^3/uL (130-400); Red Blood Cell Count 4.43 10^6/uL (4.70-6.10); Red Cell Dist. Width 15.5 % (11.5-14.5); White Blood Cell Count 6.2 10^3/uL (4.8-10.8)
[2025-02-26 04:27] LABS: APTT 63.1 Sec (23.4-35.0)
[2025-02-26 04:34] LABS: Blood Urea Nitrogen 9 mg/dl (9-20); Carbon Dioxide 28 mmol/L (22-30); Chloride 106 mmol/L (98-107); Estimated Creatinine Clearance 121 ml/min; Glucose 99 mg/dl (70-99); Potassium 4.3 mmol/L (3.5-5.1); Sodium 141 mmol/L (135-145); eGFR > 60.00
[2025-02-26] MEDS: HEPARIN 25000 UNITS/250 ML IV ×2 (04:43→17:44)
[2025-02-26 06:57] VITALS: BP 127/74
[2025-02-26] MEDS: ASPIR LOW (ENTERIC COATED) 81 MG PO (09:08)
[2025-02-26] MEDS: PROTONIX 40 MG PO (09:08)
[2025-02-26] MEDS: LIPITOR 80 MG PO (09:08)
[2025-02-26] MEDS: SUBUTEX 8 MG SL (09:09)
[2025-02-26] MEDS: LIORESAL 10 MG PO ×2 (09:09→19:58)
[2025-02-26] MEDS: BUSPAR 10 MG PO ×2 (09:09→19:58)
[2025-02-26] MEDS: TOPROL XL 25 MG PO ×2 (09:09→19:58)
[2025-02-26] MEDS: ZESTRIL 5 MG PO (09:10)
[2025-02-26] MEDS: NOVOLOG FLEXPEN-LOW RESISTANCE SC ×2 (09:26→17:47)
[2025-02-26 09:27] LABS: Glucose - Point of Care 95 mg/dl (70-99)
--- NOTE | 2025-02-26 09:51 | W.PN.CARDCBS ---
Today's Communication / Plan
-
Increase metoprolol and lisinopril
Timing of OR per CT surgery
Impression / Plan
-
PCP: Mary Edmondson
Primary corporate travel consultant: Royce Hernandez
Impression:
Chest pain
History of multivessel coronary artery disease scheduled for CABG 03/01/2025
Elevated troponin
ST elevation [place] 01/20/2025 with SCARLETT to RCA
Diabetes mellitus
Hypertension
Hyperlipidemia
Bipolar disorder
History of alcoholism
History of drug use, on Suboxone
Anxiety
PTSD
Spinal stenosis
GERD
Anemia
history of PE
Previous cardiovascular testing:
Echo 02/20/2025: Normal LV size, wall thickness, LVEF 50 to 55%, basal inferior hypokinesis, structurally normal mitral valve with mild to moderate MR. Normal RV size and function
Cardiac cath 01/20/2025:prox OM1 60 to 70% stenosis; LAD: prox tubular lesion, slightly kinked midportion of LAD;, D1: large diagonal w/70-80% proximal dz
49-year-old male with history of ST elevation [place] and emergency stenting of the proximal to mid RCA on 01/20/2025, with residual left-sided CAD with a proximal OM lesion of 60 to 70% and a long segment proximal tubular LAD lesion and slightly kinked
portion of mid LAD, with large diagonal vessel with 70 to 80% proximal disease. He was evaluated by Dr. Valdivia and CABG x 3 was advised after he completed 30 days of dual antiplatelet therapy and to allow 7 days off Brilinta prior to surgery. His
symptoms of chest burning and left arm pain with pressure were relieved after stenting. He also has a history of type 2 diabetes, hypertension, hyperlipidemia, bipolar d/o, h/o alcoholism, anxiety, PTSD, see below for rest of PMH. He is on
Suboxone and was going to meet with his stage settings painter on 02/27/2025 to transition off med prior to surgery.
He presented to ED after experiencing chest pain while sitting at his computer on 02/24/2025. No radiation of pain or associated symptoms. No pain since admission. Troponin elevated and peaked at 0.2.
Troponin trends 0.044�0.155�0.168
Twelve-lead EKG, normal sinus rhythm, inferior infarct
Plan:
#NSTEMI, MV CAD:
-Chest pain free
-Cont ASA/statin/BB, heparin gtt
-Brilinta on hold for washout prior to OR
-Was scheduled as outpatient for CABG x 3 (GALLEGO to LAD, radial to OM with sequential to diagonal +/- RASHAWN clip on 03/01/2025; timing of OR per CT surgery
#HTN: Will uptitrate dose of BB and JAVAD for tighter BP control
Progress Note - Supervisor Paper Coating
Subjective
Date of Service: February 26, 2025
No acute overnight events. Patient resting comfortably in bed. No further episodes of chest discomfort.
Objective
Labs:
02/26/25 04:03
02/26/25 04:03
Labs
Hgb 10.5 g/dL (13.0-18.0) L 02/26/25 04:03
Hct 33.4 % (39.0-52.0) L 02/26/25 04:03
Plt Count 286 10^3/uL (130-400) 02/26/25 04:03
PT 13.3 Sec (11.4-14.6) 02/24/25 16:35
INR 0.98 02/24/25 16:35
APTT 63.1 Sec (23.4-35.0) H 02/26/25 04:03
Sodium 141 mmol/L (135-145) 02/26/25 04:03
Potassium 4.3 mmol/L (3.5-5.1) 02/26/25 04:03
BUN 9 mg/dl (9-20) 02/26/25 04:03
Creatinine 0.8 mg/dL (0.7-1.3) 02/26/25 04:03
Glucose 99 mg/dl (70-99) 02/26/25 04:03
Troponins
02/24/25 02/24/25 02/24/25
14:32 20:01 23:34
Troponin I 0.044 H* 0.155 H* D 0.201 H* D
02/25/25 02/25/25 02/25/25
06:13 13:59 18:00
Troponin I 0.168 H* 0.108 H* D Cancelled
Vital Signs and I&O:
Vital Signs
Temp Pulse Resp BP Pulse Ox
98.1 F 80 20 141/78 96
02/26/25 06:57 02/26/25 03:30 02/26/25 06:57 02/25/25 22:43 02/26/25 06:57
Vital Signs
Temp Pulse Resp BP Pulse Ox
98.1 F 80 20 141/78 96
02/26/25 06:57 02/26/25 03:30 02/26/25 06:57 02/25/25 22:43 02/26/25 06:57
Intake & Output
02/24/25 02/25/25 02/26/25 02/27/25
06:59 06:59 06:59 06:59
Intake Total 532 / 532 434 / 434
Balance 532 / 532 434 / 434
Physical Exam
Physical Exam
Gen: NAD, AAOx3
HEENT: NC/AT, sclera anicteric
Neck: No JVD
CV: RRR, NL s1/s2, no M/R/G
Lungs: CTAB
Abd: S/ND
Ext: No LE edema
Skin: Warm, dry
Neuro: Non-focal
[2025-02-26 11:29] VITALS: BP 137/75
[2025-02-26 11:30] VITALS: BMI 28.6
[2025-02-26 11:55] LABS: APTT 92.5 Sec (23.4-35.0)
--- NOTE | 2025-02-26 12:11 | W.PN.HOSP.TC ---
Today's Communication/Plan
-
continue IV Heparin
awaiting CT surgery as early 02/28
BP med titrations per cards
Assessment / Plan
Assessment / Plan
Assessment:
Chest pain
Troponin elevation
known triple vessel CAD
- trop peaked at .201
- IV Heparin - requires intensive monitoring of PTTs
- ASA/statin
- hold Brilinta for scheduled CABG currently 03/01; possibly 02/28 as earliest date per Dr. Valdivia
- DCA cardiology and CT Surgery following
Anemia of chronic disease
- Hemoglobin stable at 10.2
- No active bleeding
- Continue to monitor
muscle spasms
- baclofen continued
Bipolar disorder
- buspirone/Seroquel continued
Type 2 DM
- Lantus continued
- sliding scale
- CHO diet
- A1c 5.9%
Benign essential hypertension
- lisinopril/metoprolol titrated
GERD
- PPI continued
History of diverticulitis status post colon resection
History of IV drug use
- hold Suboxone; on Subutex
anxiety
- prn Ativan
DVT prophylaxis: IV Heparin
Code: Full
Anticipated Discharge: > 48 hours
Subjective/Interval History
-
Date of Service: February 26, 2025
no further cp
no other complaints
Objective Data
-
Labs:
Laboratory Results
02/26/25 02/26/25 02/26/25
04:03 11:36 17:30
WBC 6.2
Hgb 10.5 L
Hct 33.4 L
Plt Count 286
APTT 63.1 H 92.5 H Pending
Sodium 141
Potassium 4.3
Chloride 106
Carbon Dioxide 28
BUN 9
Creatinine 0.8
Glucose 99
Calcium 9.0
Vital Signs:
Vital Signs
Temp Pulse Resp BP Pulse Ox
98.6 F 81 20 137/75 97
02/26/25 11:29 02/26/25 11:45 02/26/25 11:29 02/26/25 11:29 02/26/25 11:29
I&O
02/25/25 02/26/25 02/27/25
06:59 06:59 06:59
Intake Total 532 / 532 434 / 434 240 / 240
Balance 532 / 532 434 / 434 240 / 240
Physical Exam
-
General: No Apparent Distress
HEENT: Normocephalic and Atraumatic
Respiratory: Negative Wheezes
Cardiac: Regular Rhythm and S1/S2
GI: Soft and Nontender
Neuro: AO x 3
Psych: Calm
Data Reviewed
-
Total Time Spent with Patient (in minutes): 51
Labs: Labs Reviewed by me
[2025-02-26 14:07] LABS: Glucose - Point of Care 191 mg/dl (70-99)
[2025-02-26] MEDS: NOVOLOG FLEXPEN-LOW RESISTANCE 1 UNITS SC (14:08)
[2025-02-26 15:51] VITALS: BP 135/67
--- NOTE | 2025-02-26 16:54 | PTCARENOTE ---
Ambulating in halls, cale well, denies pain, denies SOB.
[2025-02-26 17:35] LABS: Glucose - Point of Care 149 mg/dl (70-99)
[2025-02-26 18:31] VITALS: BP 153/82
[2025-02-26 18:54] LABS: APTT 55.1 Sec (23.4-35.0)
[2025-02-26] MEDS: MELATONIN 10 MG PO (21:06)
[2025-02-26] MEDS: SEROQUEL 400 MG PO (21:06)
[2025-02-26 22:01] LABS: Glucose - Point of Care 204 mg/dl (70-99)
[2025-02-26] MEDS: LANTUS 0.2 UNITS SC (22:02)
[2025-02-26 22:04] VITALS: BP 151/89
--- NOTE | 2025-02-26 23:16 | PTCARENOTE ---
Pt rec'd at change of shift awake,alert ambulating in wallace. No c/o cp or sob. Sinus on telemetry.
Heparin adjusted at shift change to 2200 units/hr.
[2025-02-27] VITALS (9 sets, daily range): BP systolic 111–176; BP diastolic 69–95; BMI 28.9
[2025-02-27 02:34] LABS: Hematocrit 29.7 % (39.0-52.0); Hemoglobin 9.4 g/dL (13.0-18.0); Mean Corp Hgb Conc. 31.6 g/dL (33.0-37.0); Mean Corpuscular Hgb 23.9 pg (27.0-31.0); Mean Corpuscular Volume 75.4 fL (80.0-94.0); Mean Platelet Volume 8.8 fL (7.4-10.4); Platelet Count 272 10^3/uL (130-400); Red Blood Cell Count 3.94 10^6/uL (4.70-6.10); Red Cell Dist. Width 15.6 % (11.5-14.5); White Blood Cell Count 5.1 10^3/uL (4.8-10.8)
[2025-02-27 02:51] LABS: APTT 97.7 Sec (23.4-35.0)
[2025-02-27 03:05] LABS: Blood Urea Nitrogen 11 mg/dl (9-20); Calcium 8.8 mg/dl (8.4-10.2); Carbon Dioxide 29 mmol/L (22-30); Chloride 107 mmol/L (98-107); Estimated Creatinine Clearance 108 ml/min; Glucose 142 mg/dl (70-99); Potassium 3.9 mmol/L (3.5-5.1); Sodium 142 mmol/L (135-145); eGFR > 60.00
[2025-02-27] MEDS: HEPARIN 25000 UNITS/250 ML IV ×2 (05:31→17:14)
[2025-02-27 06:54] LABS: Glucose - Point of Care 117 mg/dl (70-99)
--- NOTE | 2025-02-27 07:00 | W.PN.CT ---
Today's Communication / Plan
-
Plan:
-Cont. current medical management per primary team
-Cont. current meds (ASA, Heparin gtt, Lipitor, Toprol XL, Seroquel; Suboxone transitioned to Subutex)
-Ongoing medical workup/optimization
-Avoid JAVAD-I/ARBs 24-48 hrs prior to CABG
-Will d/c heparin gtt service control operator to OR
-For CABG/RASHAWN clip by Dr. Valdivia tomorrow, 02/28
-Will cont. to closely monitor
Assessment / Plan
-
Assessment:
-Multivessel CAD
-Hx STEMI S/p SCARLETT to RCA, 01/20/25
-HTN
-HLD
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
-Hx PE
-Spinal stenosis
-GERD
-PTSD
-ETOH abuse
-Anemia
-Hx C-difficile
-SBO
-Perforated diverticulitis S/P hemicolectomy
Discussed patient care with: Cardiology, Nursing, Respiratory Therapy, Pharmacy and Care Team
Subjective
-
Date of Service: February 27, 2025
No issues overnight. Denies CP/SOB
Objective Data
-
Lab Results
02/27/25 02:19
02/27/25 02:19
PT 13.3 Sec (11.4-14.6) 02/24/25 16:35
INR 0.98 02/24/25 16:35
APTT 97.7 Sec (23.4-35.0) H 02/27/25 02:19
Vital Signs
Vital Signs
Temp Pulse Resp BP Pulse Ox
98.0 F 73 16 128/73 98
02/27/25 06:57 02/27/25 03:00 02/27/25 06:57 02/27/25 02:09 02/27/25 06:57
CT Intake/Output/Weight
02/26/25 02/27/25 02/27/25
18:59 06:59 18:59
Intake Total 240 / 240
Balance 240 / 240
SaO2: 98 (RA)
Physical Exam
-
General: Awake, Oriented and AOx3
Cardiovascular: Regular rate & rhythm and No Murmurs
Respiratory: Clear
Extremities: No Edema
Data Reviewed
-
Lab Results: Results Reviewed
Medications: Active Meds Reviewed
Chest X-Ray: Report Reviewed and Image Reviewed
ECG: Report Reviewed and Image Reviewed
--- NOTE | 2025-02-27 09:10 | W.PN.CARDCBS ---
Addendum entered and electronically signed by Jacky Sanford DO 02/27/25 12:13:
I saw and examined the patient.
The Players Assistant's note was reviewed and I agree with the note.
Comment:
Plan:
Cont IV Heparin and Brilinta wash out
Reviewed cath
Compensated for CABG tomorrow.
Outpt follow up with [facility].
Original Note:
Today's Communication / Plan
-
-for CABG tomorrow
Impression / Plan
-
PCP: Mary Edmondson
Primary injection molding machine setter: Royce Hernandez
Impression:
Chest pain
History of multivessel coronary artery disease scheduled for CABG 03/01/2025
Elevated troponin
ST elevation [place] 01/20/2025 with SCARLETT to RCA
Diabetes mellitus
Hypertension
Hyperlipidemia
Bipolar disorder
History of alcoholism
History of drug use, on Suboxone
Anxiety
PTSD
Spinal stenosis
GERD
Anemia
history of PE
Previous cardiovascular testing:
Echo 02/20/2025: Normal LV size, wall thickness, LVEF 50 to 55%, basal inferior hypokinesis, structurally normal mitral valve with mild to moderate MR. Normal RV size and function
Cardiac cath 01/20/2025:prox OM1 60 to 70% stenosis; LAD: prox tubular lesion, slightly kinked midportion of LAD;, D1: large diagonal w/70-80% proximal dz
Plan:
49-year-old male with history of ST elevation [place] and emergency stenting of the proximal to mid RCA on 01/20/2025, with residual left-sided CAD with a proximal OM lesion of 60 to 70% and a long segment proximal tubular LAD lesion and slightly kinked
portion of mid LAD, with large diagonal vessel with 70 to 80% proximal disease. He was evaluated by Dr. Valdivia and CABG x 3 was advised after he completed 30 days of dual antiplatelet therapy and to allow 7 days off Brilinta prior to surgery. His
symptoms of chest burning and left arm pain with pressure were relieved after stenting. He also has a history of type 2 diabetes, hypertension, hyperlipidemia, bipolar d/o, h/o alcoholism, anxiety, PTSD, see below for rest of PMH. He is on
Suboxone and was going to meet with his bottom painter on 02/27/2025 to transition off med prior to surgery.
He presented to ED after experiencing chest pain while sitting at his computer on 02/24/2025. No radiation of pain or associated symptoms. No pain since admission. Troponin elevated and peaked at 0.2.
Troponin trends 0.044�0.155�0..168
Twelve-lead EKG, normal sinus rhythm, inferior infarct
#NSTEMI, MV CAD:
-Chest pain free
-Cont ASA/statin/BB, heparin gtt
-Brilinta on hold for washout prior to OR
-Was scheduled as outpatient for CABG x 3, GALLEGO to LAD, radial to OM with sequential to diagonal +/- RASHAWN clip on 03/01/2025; surgery moved up to 02/28/2025
-Telemetry personally reviewed: Normal sinus rhythm, 70s
#HTN:
-BPs Better controlled today status post up titration of Toprol to 25 mg twice daily
-JAVAD inhibitor on hold 24 to 48 hours preoperatively
Progress Note - Fans Clerk
Subjective
Date of Service: February 27, 2025
-feels well, no chest pain
-for CABG tomorrow
Objective
Labs:
02/27/25 02:19
02/27/25 02:19
Labs
Hgb 9.4 g/dL (13.0-18.0) L 02/27/25 02:19
Hct 29.7 % (39.0-52.0) L 02/27/25 02:19
Plt Count 272 10^3/uL (130-400) 02/27/25 02:19
PT 13.3 Sec (11.4-14.6) 02/24/25 16:35
INR 0.98 02/24/25 16:35
APTT 97.7 Sec (23.4-35.0) H 02/27/25 02:19
Sodium 142 mmol/L (135-145) 02/27/25 02:19
Potassium 3.9 mmol/L (3.5-5.1) 02/27/25 02:19
BUN 11 mg/dl (9-20) 02/27/25 02:19
Creatinine 0.9 mg/dL (0.7-1.3) 02/27/25 02:19
Glucose 142 mg/dl (70-99) H 02/27/25 02:19
Troponins
02/24/25 02/24/25 02/24/25
14:32 20:01 23:34
Troponin I 0.044 H* 0.155 H* D 0.201 H* D
02/25/25 02/25/25 02/25/25
06:13 13:59 18:00
Troponin I 0.168 H* 0.108 H* D Cancelled
Vital Signs and I&O:
Vital Signs
Temp Pulse Resp BP Pulse Ox
98.0 F 70 16 111/72 98
02/27/25 06:57 02/27/25 08:45 02/27/25 06:57 02/27/25 06:52 02/27/25 07:04
Vital Signs
Temp Pulse Resp BP Pulse Ox
98.0 F 70 16 111/72 98
02/27/25 06:57 02/27/25 08:45 02/27/25 06:57 02/27/25 06:52 02/27/25 07:04
Intake & Output
02/25/25 02/26/25 02/27/25 02/28/25
06:59 06:59 06:59 06:59
Intake Total 532 / 532 434 / 434 240 / 240
Balance 532 / 532 434 / 434 240 / 240
[2025-02-27] MEDS: LIORESAL 10 MG PO ×2 (09:25→20:44)
[2025-02-27] MEDS: PROTONIX 40 MG PO ×2 (09:25→09:27)
[2025-02-27] MEDS: LIPITOR 80 MG PO (09:25)
[2025-02-27] MEDS: TOPROL XL 25 MG PO ×2 (09:25→20:44)
[2025-02-27] MEDS: SUBUTEX 8 MG SL (09:26)
[2025-02-27] MEDS: ASPIR LOW (ENTERIC COATED) 81 MG PO (09:26)
[2025-02-27] MEDS: BUSPAR 10 MG PO ×2 (09:26→20:44)
[2025-02-27] MEDS: NOVOLOG FLEXPEN-LOW RESISTANCE SC ×3 (09:32→16:54)
--- NOTE | 2025-02-27 11:13 | W.PN.HOSP.TC ---
Today's Communication/Plan
-
Continue IV heparin drip
N.p.o. after midnight for CABG and RASHAWN clip tomorrow
Hold Brilinta and lisinopril
Continue beta-ez, aspirin, statin
Telemetry
Assessment / Plan
Assessment / Plan
#Triple-vessel CAD
#NSTEMI
-Had recent PCI, subsequent chest pain and troponin elevation with triple-vessel CAD
-Home regimen included DAPT with aspirin and Brilinta, statin, beta-ez, ACEi
-Presented with recurrent NSTEMI with troponin peak 0.201; Brilinta held, on IV heparin gtt
-Cardiothoracic surgery following, planning for CABG with left atrial appendage clip on 02/28
-Continue with aspirin, high intensity statin, beta-ez; hold ACEi and Brilinta
-Continue with IV heparin drip until CABG on 02/28
-Continue on telemetry
#Microcytic anemia
-Hemoglobin baseline in the range of 10-11 per previous labs; between 9.4 and 10.5
-Has documented history of anemia of chronic disease; MCV here 75
-No signs of ongoing bleeding despite IV heparin drip
-Order iron studies, B12, folate to assess for deficiency
-Continue to trend CBC
#IDDM 2
-Most recent A1c 5.9%; well-controlled, no microvascular complication
-Home regimen includes Lantus; added on ISS upon admission
-Continue with carbohydrate controlled diet, BG goal 140-180
#Primary hypertension
-No known history of hypertensive systemic
-Home regimen includes beta-ez and JAVAD inhibitor
-JAVAD inhibitor held in preparation of CABG
-Blood pressure remains well-controlled
#GERD
-No known history of Rodriguez's esophagus or erosive disease
-Home regimen includes daily PPI
-No red flag symptoms at this
#H/O IVDU
#Bipolar disorder
#Anxiety
-Home regimen includes Suboxone for IVDU, buspirone/Seroquel for bipolar
-Added on as needed Ativan while inpatient
#Muscle spasm
-Unclear etiology
-Continue on home baclofen
#H/O diverticulosis s/p colon resection
Diet: Carbohydrate controlled; NPO @ MN
DVT prophylaxis: IV heparin drip
CODE STATUS: Full
Anticipated Discharge: > 48 hours
Subjective/Interval History
-
Date of Service: February 27, 2025
Seen and examined at the bedside. No acute events reported overnight. AFVSS on room air this morning.
Labs stable today. Planning for CABG tomorrow rather than 03/01
He denies any new complaints today. Denies anginal equivalents
Objective Data
-
Labs:
Laboratory Results
02/21/25 02/27/25 02/27/25
12:25 02:19 09:21
WBC 6.4 5.1
Hgb 10.3 L 9.4 L
Hct 32.9 L 29.7 L
Plt Count 315 272
PT 13.0
INR 0.95
APTT 25.8 97.7 H 80.0 H
Sodium 137 142
Potassium 4.2 3.9
Chloride 103 107
Carbon Dioxide 25 29
BUN 7 L 11
Creatinine 0.8 0.9
Glucose 108 H 142 H
Calcium 8.7 8.8
Total Bilirubin 0.6
AST 23
ALT 13
Alkaline Phosphatase 44
02/27/25
16:00
WBC
Hgb
Hct
Plt Count
PT
INR
APTT Pending
Sodium
Potassium
Chloride
Carbon Dioxide
BUN
Creatinine
Glucose
Calcium
Total Bilirubin
AST
ALT
Alkaline Phosphatase
Vital Signs:
Vital Signs
Temp Pulse Resp BP Pulse Ox
98.0 F 91 16 111/72 98
02/27/25 06:57 02/27/25 09:45 02/27/25 06:57 02/27/25 09:25 02/27/25 09:00
I&O
02/26/25 02/27/25 02/28/25
06:59 06:59 06:59
Intake Total 434 / 434 240 / 240 882 / 882
Balance 434 / 434 240 / 240 882 / 882
Review of Systems
-
History Source: Patient
All other systems: Reviewed and negative
Physical Exam
-
General: Well Developed, Well Nourished, No Apparent Distress and Comfortable
HEENT: Normocephalic, Atraumatic, Moist Mucous Membranes and Anicteric
Respiratory: Clear to Auscultation and Non Labored Respirations
Cardiac: Regular Rhythm and S1/S2; Negative Murmur, Rub, JVD or Gallop
GI: Soft, Nontender, Nondistended and Normal Bowel Sounds
Musculoskeletal: No Clubbing, No Cyanosis and No Edema
Skin: Warm, Dry and Normal Turgor; Negative Rash
Neuro: AO x 3 and Nonfocal/Grossly Intact; Negative Tremors
Psych: Calm
Data Reviewed
-
Labs: Labs Reviewed by me, Discussed with Nurse and Discussed with Patient
--- NOTE | 2025-02-27 11:33 | CM ---
Chart reviewed. Patient is waiting to go for surgery 02/28/25. Patient is independent of ADLS, lives alone in a [address], 1 T[address]AN[address], 0 DME. Patient sisters and girlfriend will be able to help when discharged. Plan is for the patient to return home
with CT Transitional RN.
[2025-02-27 12:39] LABS: Glucose - Point of Care 125 mg/dl (70-99)
[2025-02-27] MEDS: ATIVAN 0.5 MG PO ×2 (13:21→21:39)
[2025-02-27 16:53] LABS: Glucose - Point of Care 107 mg/dl (70-99)
[2025-02-27 17:26] LABS: APTT 75.4 Sec (23.4-35.0)
--- NOTE | 2025-02-27 17:50 | PTCARENOTE ---
Rec'd pt this shift awake and alert, pt ambulating in room and in hallway. pt denies pain, denies sob. NSR on monitor, RA, lungs clear. Heparin remains at 2200 units/hr. See worklist for VS/I and O and assessments.
--- NOTE | 2025-02-27 20:05 | PTCARENOTE ---
Assumed care on pt @1900, aaox3, denies pain or SOB, self ambulating in room and hallway, reporting good urine output without any issues. NSR on monitor, Hr 80's, O2 sat 98% RA. Heparin infusing at 2200 units/hr. Call bhat within reach, family at
bedside.
[2025-02-27 21:37] LABS: Glucose - Point of Care 141 mg/dl (70-99)
[2025-02-27] MEDS: LANTUS 0.2 UNITS SC (21:37)
[2025-02-27] MEDS: MELATONIN 10 MG PO (21:38)
[2025-02-27] MEDS: SEROQUEL 400 MG PO (21:38)
--- NOTE | 2025-02-27 21:50 | PTCARENOTE ---
Prep completed on pt for scheduled CVOR procedure.
[2025-02-28] VITALS (12 sets, daily range): BP systolic 90–143; BP diastolic 53–86; BMI 28.8
[2025-02-28] MEDS: HEPARIN 25000 UNITS/250 ML IV (05:52)
[2025-02-28 06:36] LABS: % Basophils 0.4 % (0-2); % Eosinophils 3.9 % (0-6); % Immature Granulocytes 0.2 % (0-0.5); % Lymphocytes 26.9 % (20.5-51.1); % Monocytes 15.4 % (1.7-9.3); % Neutrophils 53.2 % (42.2-75.2); Absolute Eosinophils 0.2 10^3/uL (0-0.7); Absolute Lymphocytes 1.3 10^3/uL (1.2-3.4); Absolute Monocytes 0.8 10^3/uL (0.1-0.6); Absolute Neutrophils 2.6 10^3/uL (1.4-6.5); Hematocrit 29.5 % (39.0-52.0); Hemoglobin 9.3 g/dL (13.0-18.0); Mean Corp Hgb Conc. 31.5 g/dL (33.0-37.0); Mean Corpuscular Hgb 23.7 pg (27.0-31.0); Mean Corpuscular Volume 75.3 fL (80.0-94.0); Mean Platelet Volume 9.7 fL (7.4-10.4); Nucleated Red Blood Cells % 0 % (-); Platelet Count 280 10^3/uL (130-400); Red Blood Cell Count 3.92 10^6/uL (4.70-6.10); Red Cell Dist. Width 15.8 % (11.5-14.5); White Blood Cell Count 4.9 10^3/uL (4.8-10.8)
[2025-02-28 06:41] LABS: APTT 52.7 Sec (23.4-35.0)
[2025-02-28 07:03] LABS: Blood Urea Nitrogen 10 mg/dl (9-20); Calcium 8.7 mg/dl (8.4-10.2); Carbon Dioxide 27 mmol/L (22-30); Chloride 108 mmol/L (98-107); Estimated Creatinine Clearance 108 ml/min; Glucose 99 mg/dl (70-99); Iron 26 ug/dl (49-181); Magnesium 2.1 mg/dl (1.6-2.3); Sodium 143 mmol/L (135-145); eGFR > 60.00
[2025-02-28 07:12] LABS: Percent Saturation 6 % (20-50); Total Iron Binding Capacity 377 ug/dl (261-462)
[2025-02-28 07:32] LABS: Ferritin 8.1 ng/ml (17.9-464.0)
--- NOTE | 2025-02-28 07:58 | TRANSFER ---
Pt transferred to room 2265 for pre op CABG. Pt transferred on heparin drip at 24 ml/hr. Pt's at bedside. Report given to RADIOLOGIC TECHNICIAN.
[2025-02-28 08:03] LABS: Folate 8.8 ng/ml (2.76-20); Vitamin B12 406 pg/ml (239-931)
[2025-02-28] MEDS: VERSED 2 MG IV (08:11)
[2025-02-28] MEDS: XYLOCAINE 1% 10 ML INFIL (08:50)
[2025-02-28] MEDS: NOVOLOG FLEXPEN-LOW RESISTANCE SC (09:01)
[2025-02-28] MEDS: LIPITOR PO (09:03)
[2025-02-28] MEDS: PROTONIX PO (09:03)
--- NOTE | 2025-02-28 09:13 | PTCARENOTE ---
Pt from IVU to CVICU at 0800. Pt arrived on heparin gtt, now off per CT SUSANNA, Marisa. Pt placed on monitor, currently SR with HR 60's. Right upper arm BP 143/86 MAP 102. Left upper arm BP 138/79 MAP 95. Pulse oximetry 96% on room air. Versed
administered per order. Right radial [place] and Right IJ Cordis placed by CT SUSANNA, Marisa. Bedside x-ray completed.
[2025-02-28] MEDS: ASPIR LOW (ENTERIC COATED) PO (09:30)
[2025-02-28] MEDS: BUSPAR PO ×2 (09:34→20:50)
[2025-02-28] MEDS: LIORESAL PO (09:34)
[2025-02-28] MEDS: SUBUTEX SL (09:34)
--- NOTE | 2025-02-28 09:46 | CM ---
pt in OR today, cm t o follow,
[2025-02-28] MEDS: PROTONIX 40 MG PO (09:49)
[2025-02-28] MEDS: MAGNESIUM OXIDE 500 MG PO (09:49)
[2025-02-28] MEDS: LOPRESSOR 25 MG PO (09:49)
[2025-02-28] MEDS: BACTROBAN 2% OINTMENT 1 APPLIC NASAL ×2 (09:50→20:51)
[2025-02-28 10:31] LABS: ACT+ - POC 90 Seconds (82-134)
--- NOTE | 2025-02-28 10:31 | W.CVOR.SURPR ---
CVOR Surgeon Immed Pre Op
-
I have examined this patient prior to performance of the scheduled procedure.
The patient's condition is unchanged from the time of the dictated/written History and
Physical and the patient is able to undergo the scheduled procedure.
CABG, radial is no good to use, plan for BIMA. RASHAWN Clip.
[2025-02-28 10:37] LABS: Urine Albumin 1+ (Neg - Trace); Urine Bilirubin Negative (Negative); Urine Character Clear (Clear); Urine Color Yellow; Urine Glucose Negative (Negative); Urine Ketone Negative (Negative); Urine Leukocyte 1+ (Negative); Urine Nitrite Negative (Negative); Urine Occult Blood Negative (Negative); Urine Specific Gravity 1.015 (<1.030); Urine Urobilinogen Negative (Neg - 1+); Urine pH 6.5 (5.0-9.0)
--- NOTE | 2025-02-28 11:10 | W.PN.HOSP.TC ---
Today's Communication/Plan
-
Hold Brilinta for CABG
IV heparin drip
IV iron
Trend CBC
Assessment / Plan
Assessment / Plan
#Triple-vessel CAD
#NSTEMI
-Had recent PCI, subsequent chest pain and troponin elevation with triple-vessel CAD
-Home regimen included DAPT with aspirin and Brilinta, statin, beta-ez, ACEi
-Presented with recurrent NSTEMI with troponin peak 0.201; Brilinta held, on IV heparin gtt
-Cardiothoracic surgery following, planning for CABG with left atrial appendage clip on 02/28
-Continue with aspirin, high intensity statin, beta-ez; hold ACEi and Brilinta
-Continue with IV heparin drip until CABG on 02/28
-Continue on telemetry
#Microcytic anemia
#Iron deficiency anemia
-Hemoglobin baseline in the range of 10-11 per previous labs; between 9.4 and 10.5
-Has documented history of anemia of chronic disease; MCV here 75
-No signs of ongoing bleeding despite IV heparin drip
-Iron studies with ferritin 6, higher than expected TIBC
-Start IV iron after CABG
-Continue to trend CBC
#IDDM 2
-Most recent A1c 5.9%; well-controlled, no microvascular complication
-Home regimen includes Lantus; added on ISS upon admission
-Continue with carbohydrate controlled diet, BG goal 140-180
#Primary hypertension
-No known history of hypertensive systemic
-Home regimen includes beta-ez and JAVAD inhibitor
-JAVAD inhibitor held in preparation of CABG
-Blood pressure remains well-controlled
#GERD
-No known history of Rodriguez's esophagus or erosive disease
-Home regimen includes daily PPI
-No red flag symptoms at this
#H/O IVDU
#Bipolar disorder
#Anxiety
-Home regimen includes Suboxone for IVDU, buspirone/Seroquel for bipolar
-Added on as needed Ativan while inpatient
#Muscle spasm
-Unclear etiology
-Continue on home baclofen
#H/O diverticulosis s/p colon resection
Diet: Carbohydrate controlled; NPO @ MN
DVT prophylaxis: IV heparin drip
CODE STATUS: Full
Anticipated Discharge: > 48 hours
Subjective/Interval History
-
Date of Service: February 28, 2025
Seen and examined at the bedside prior to CABG. No acute events overnight. AFVSS this morning
Patient states he feels well, is ready for his procedure
Labs with ferritin near 6, consistent with SARI
Objective Data
-
Labs:
Laboratory Results
02/28/25 02/28/25
05:50 13:00
WBC 4.9
Hgb 9.3 L
Hct 29.5 L
Plt Count 280
APTT 52.7 H Pending
Sodium 143
Potassium 4.0
Chloride 108 H
Carbon Dioxide 27
BUN 10
Creatinine 0.9
Glucose 99
Calcium 8.7
Vital Signs:
Vital Signs
Temp Pulse Resp BP Pulse Ox
98.0 F 71 10 143/86 97
02/28/25 07:12 02/28/25 09:26 02/28/25 09:26 02/28/25 08:16 02/28/25 07:30
I&O
02/27/25 02/28/25 03/01/25
06:59 06:59 06:59
Intake Total 240 / 240 3150 / 3150
Balance 240 / 240 3150 / 3150
Review of Systems
-
History Source: Patient
All other systems: Reviewed and negative
Physical Exam
-
General: Well Developed, Well Nourished and No Apparent Distress
HEENT: Normocephalic, Atraumatic, Moist Mucous Membranes and Anicteric
Respiratory: Clear to Auscultation and Non Labored Respirations; Negative Accessory Resp Muscle Use
Cardiac: Regular Rhythm and S1/S2; Negative Murmur, Rub or Gallop
GI: Soft, Nontender, Nondistended and Normal Bowel Sounds
Musculoskeletal: No Clubbing, No Cyanosis and No Edema
Skin: Warm, Dry and Normal Turgor; Negative Rash
Neuro: AO x 3 and Nonfocal/Grossly Intact; Negative Tremors
Psych: Calm
[2025-02-28 11:46] LABS: Urine Amorphous Seen; Urine Urothelial Cell 0-2 /LPF (FEW)
[2025-02-28 11:48] LABS: Urine Red Blood Cell 0-2 /HPF (0-2)
[2025-02-28 12:31] LABS: ACT+ - POC 407 Seconds (82-134)
[2025-02-28 12:39] LABS: ACT+ - POC 425 Seconds (82-134)
[2025-02-28 12:54] LABS: ACT+ - POC 465 Seconds (82-134)
[2025-02-28 13:05] LABS: B.E. - POC 3.7 mmol/L; Glucose - POC 81 mg/dl (70-99); HCO3 - POC 30 mmol/L (21-28); Hematocrit - POC 29 % PCV (42-52); Hemodilution- POC No; Ionized Calcium - POC 1.25 mmol/L (1.15-1.33); Lactate - POC < 0.30 mmol/L (0.36-0.75); O2 Saturation %Calculated-POC 99.9 % (94-98); PCO2 - POC 51 mmHg (35-48); PO2 - POC 365 mmHg (83-108); Potassium - POC 3.9 mmol/L (3.5-5.1); Sodium - POC 146 mmol/L (136-145); Specimen Type - POC Arterial; pH - POC 7.37 (7.35-7.45)
[2025-02-28 13:13] LABS: B.E. - POC 4.4 mmol/L; Glucose - POC 162 mg/dl (70-99); HCO3 - POC 29 mmol/L (21-28); Hematocrit - POC 26 % PCV (42-52); Hemodilution- POC Yes; Hemoglobin Calculated - POC 8.7; Ionized Calcium - POC 1.02 mmol/L (1.15-1.33); Lactate - POC 0.77 mmol/L (0.36-0.75); O2 Saturation %Calculated-POC 99.8 % (94-98); PCO2 - POC 45 mmHg (35-48); PO2 - POC 216 mmHg (83-108); Potassium - POC 5.6 mmol/L (3.5-5.1); Sodium - POC 142 mmol/L (136-145); Specimen Type - POC Arterial; pH - POC 7.42 (7.35-7.45)
[2025-02-28 13:28] LABS: ACT+ - POC 492 Seconds (82-134)
[2025-02-28 13:30] LABS: B.E. - POC 2.7 mmol/L; Glucose - POC 133 mg/dl (70-99); HCO3 - POC 28 mmol/L (21-28); Hematocrit - POC 25 % PCV (42-52); Hemodilution- POC Yes; Hemoglobin Calculated - POC 8.6; Ionized Calcium - POC 1.07 mmol/L (1.15-1.33); Lactate - POC 1.25 mmol/L (0.36-0.75); O2 Saturation %Calculated-POC 99.5 % (94-98); PCO2 - POC 48 mmHg (35-48); PO2 - POC 178 mmHg (83-108); Potassium - POC 4.9 mmol/L (3.5-5.1); Sodium - POC 144 mmol/L (136-145); Specimen Type - POC Arterial; pH - POC 7.38 (7.35-7.45)
[2025-02-28 13:50] LABS: B.E. - POC 0.9 mmol/L; Glucose - POC 145 mg/dl (70-99); HCO3 - POC 26 mmol/L (21-28); Hematocrit - POC 29 % PCV (42-52); Hemodilution- POC Yes; Hemoglobin Calculated - POC 9.9; Ionized Calcium - POC 1.78 mmol/L (1.15-1.33); Lactate - POC 1.41 mmol/L (0.36-0.75); PCO2 - POC 41 mmHg (35-48); PO2 - POC 427 mmHg (83-108); POC Comment CPB; Potassium - POC 5.3 mmol/L (3.5-5.1); Sodium - POC 144 mmol/L (136-145); Specimen Type - POC Arterial; pH - POC 7.41 (7.35-7.45)
[2025-02-28] MEDS: VANCOCIN 530 MG IV (13:52)
[2025-02-28] MEDS: AZACTAM 2000 MG IV ×2 (13:52)
[2025-02-28 13:54] LABS: ACT+ - POC 439 Seconds (82-134)
[2025-02-28 14:17] LABS: B.E. - POC 1.3 mmol/L; Glucose - POC 124 mg/dl (70-99); HCO3 - POC 27 mmol/L (21-28); Hematocrit - POC 26 % PCV (42-52); Hemodilution- POC Yes; Hemoglobin Calculated - POC 8.9; Ionized Calcium - POC 1.23 mmol/L (1.15-1.33); Lactate - POC 0.63 mmol/L (0.36-0.75); PCO2 - POC 47 mmHg (35-48); PO2 - POC 517 mmHg (83-108); Potassium - POC 4.4 mmol/L (3.5-5.1); Sodium - POC 146 mmol/L (136-145); Specimen Type - POC Arterial; pH - POC 7.37 (7.35-7.45)
[2025-02-28 14:19] LABS: ACT+ - POC 115 Seconds (82-134)
[2025-02-28 14:34] LABS: B.E. - POC 1.2 mmol/L; Glucose - POC 120 mg/dl (70-99); HCO3 - POC 26 mmol/L (21-28); Hematocrit - POC 24 % PCV (42-52); Hemodilution- POC Yes; Hemoglobin Calculated - POC 8.3; Ionized Calcium - POC 1.12 mmol/L (1.15-1.33); O2 Saturation %Calculated-POC 99.9 % (94-98); PCO2 - POC 42 mmHg (35-48); PO2 - POC 322 mmHg (83-108); POC Comment POST; Potassium - POC 4.1 mmol/L (3.5-5.1); Sodium - POC 145 mmol/L (136-145); Specimen Type - POC Arterial; pH - POC 7.41 (7.35-7.45)
--- NOTE | 2025-02-28 15:10 | W.PN.CT.SURG ---
CT Surgery Operative Note
-
CARDIAC SURGERY OPERATIVE REPORT
Preoperative Diagnosis: Multivessel Coronary Artery Disease with NSTEMI, status post recent stenting for a STEMI
Postoperative Diagnosis: Same
Procedure(s) Performed:
1. Standard sternotomy with aortic and mitral cannulation
2. Bilateral internal mammary artery harvesting
3. Multi arterial coronary artery bypass grafting x 3 (In situ GALLEGO to LAD, GALLEGO-ISAMAR Y to Diag to OM)
4. Left atrial appendage exclusion [35 mm device, serial #[id number]]
5. Placement of temporary ventricular pacing wire
6. Transesophageal echocardiography
7. Rigid Sternal Fixation (3 square plates, due to use of bilateral IMAs and his diabetic status)
Date of Surgery: 02/28/25
Comorbidities:
1. NSTEMI
2. Multivessel coronary artery disease status post STEMI and PCI to the RCA
3. Osteoarthritis
4. Bipolar disorder
5. Hypertension
6. Diabetes mellitus
7. History of substance abuse
8. History of pulmonary embolism
9. GERD
Attending Surgeon: William Valdivia MD, MS
Assistants: William Olmedo PA-C (present and necessary to procurement assistant, retraction, suction, exposure, suture management, and wound closure under my direction)
Anesthesiology: Harry Jean-Baptiste MD and Tru Kenyon CRNA
Scrub and Circulating RNs: Marisa Gómez RN, Darrian Gallardo RN
Medical Imaging Technologist: Nanci Dorsey CCP
Anesthesia: GETA
EBL: per perfusion records
Products: 2 FFP given for heparin resistance and persistently low ACT
CPB Time: 53 minutes
Aortic Cross Clamp Time: 48 minutes
Indication(s) for Procedures: This is a 49-year-old male who was recently hospitalized with an acute coronary syndrome, status post STEMI with emergent stenting to the RCA system. He was found to have multivessel coronary artery disease and was
referred for evaluation for CABG given his diabetic status. Prior to presenting to his elective surgery, he presented as an NSTEMI with chest pain. His schedule was moved up for surgical intervention.
Conduit(s) Quality:
GALLEGO -excellent/good flow with transection and released the bulldog
ISAMAR-excellent/good caliber vessel, large, good flow
Target(s) Quality:
Diagonal-large sized target/good visual flow in the diagonal territory, flow probe assessment demonstrated a mean flow approximately 15 cc a minute with a pulse index of 3.0
OM -large sized target/there was good visual flow in the OM territory however given the location posteriorly was difficult to obtain flow probe assessment of this graft
LAD -large/target/excellent visual flow in the LAD territory with visible pinking up of the myocardium upon release of the bulldog clamp, flow probe assessment yielded a mean flow of only approximately 5 to 8 cc a minute with a slightly higher
pulsatility index which may indicate insufficient proximal stenosis, testing with compression of the proximal LAD did demonstrate an increase in flow in the GALLEGO to 15 to 20 cc a minute
Findings: His left ventricular ejection fraction preoperatively was 60% with no significant regional wall motion abnormalities. He had a mild to moderate degree of functional mitral valve insufficiency which was left alone. Following surgery his
EF remained the same at 60% with no new regional wall motion abnormalities. His mitral valve insufficiency remained the same, perhaps slightly improved visually. The GALLEGO and ISAMAR was harvested in a skeletonized fashion. A ISAMAR GALLEGO Y graft was
performed after doing the distal anastomoses. As the flow probe numbers were slightly marginal, I did elect to place bulldog clamps in all 3 grafts and redo the T intersection anastomosis. There was significant backbleeding from both the LAD and
from the diagonal/circumflex vessels. ST segments were isoelectric. Flow probe assessment is listed above. He did not require any blood products, he did not require any inotropic support, he was sinus rhythm without pacing requirement. He
sternum was rigidly fixated with 3 plates as well as wires given his diabetic status and use of his bilateral CHELLY's. This puts him at a slightly increased risk for sternal dehiscence and infection. Therefore, sternal fixation was indicated.
Description of Procedure: The patient was taken to the operating room. Their identity and procedure to be performed were verified and they were positioned supine on the operating table. Induction via general anesthesia with endotracheal intubation
was performed and central venous access and arterial monitoring were inserted. A preoperative transesophageal echocardiogram was performed to assess cardiac function and valvular function. The patient was then prepped and draped from chin to feet in
a sterile fashion. A preoperative time-out was performed with all members of the team present. A midline chest incision was performed along with median sternotomy. Administration of an initial 5,000 units of IV heparin was given. A RulTract sternal
retractor was positioned to exposure the left internal mammary bed. The mammary was harvested and found to have good flow. A bulldog clamp was applied to the distal end of the mammary after dividing it. It was wrapped in a papaverine soaked RayTec
and replaced back into the left hemithorax. I then reposition the Rultract in order to expose the right hemithorax. The ISAMAR was harvested in a similar skeletonized fashion, 2 medium clips were used to divide the distal end which demonstrated
excellent flow down the [place] vessel. I then double clipped the proximal end and transected the ISAMAR. This was placed into a papaverine soaked blanket for later use. The RulTract was exchanged for a median sternal retractor. The innominate vein
was isolated. Full heparinization was given (a total of 87 units). We created a pericardial well. The aortic cannulation site was chosen where it was soft, pliable, and free of calcium. Cannulation was performed with an arterial cannula in the
ascending aorta and a triple-stage venous cannula through the right atrial appendage. The arterial cannula line had an appropriate bounce and correlating pressures with test dosing. Next, a root vent/antegrade cannula was inserted into the ascending
aorta. The ACT was confirmed to be over 400 and retrograde autologous priming was performed before commencing cardiopulmonary bypass. Additional heparin was required in order to achieve that ACT of over 400 and so FFP was preemptively ordered. The
pulmonary artery was away from the aorta to facilitate a clamp site. The aortic cross-clamp was placed after decreasing the flow on the bypass and mean arterial pressure. A total of 1.2L initial dose of antegrade Del-Nido cardioplegia
solution was given and planned for re-dosing every 75 minutes as necessary. There was rapid electro-mechanical arrest of the heart at 280 cc of cardioplegia. The left ventricle was observed for distention on echocardiogram and manual palpation. Cold
slush was placed into a sponge and topically on the RV while we systemically cooled to 34 degrees centigrade. Once the heart was fully arrested it was rotated medially and the left atrial appendage was clipped flush the base with a 35mm device.
I positioned the heart to expose the obtuse marginal. A ouzinkie blade was used to expose the coronary and perform the arteriotomy. Coronary Vela scissors were used to enlarge the incision. The ISAMAR was trimmed and beveled to an appropriate size. The
distal anastomosis was performed using 7-0 prolene in an end-to-side fashion. The graft was measured for length to accommodate a sequential graft to the diagonal. A suitable site on the diagonal was chosen. We dissected and prepared the distal
target in a similar fashion. An [id number]-ok-[id number] anastomosis was created with a 7-0 prolene and secured with a micro core knot. A suitable target on the mid/distal left anterior descending was identified. We dissected and prepared the distal target in
a similar fashion. We retrieved the GALLEGO from the chest and created a pericardial opening while being cognizant of the phrenic nerve to facilitate the course of the mammary. The distal end of the mammary was prepped and beveled to size. We verified
orientation and length of the CHELLY and found brisk flow. An end-to-side anastomosis was created with a 7-0 prolene. We temporarily released the bulldog clamp on the mammary to inspect flow. Perfusion to the LAD territory was visualized and hemostasis
was confirmed. The bull clamp was replaced on the mammary. A small arteriotomy on the midportion of the GALLEGO was performed and a end-to-side anastomosis was created with the ISAMAR graft. This was done with 7-0 Prolene in a running fashion. At the
the same time, we re-warmed to 36.5 degrees centigrade. The bulldog clamp was removed from the mammary. Temporary bipolar ventricular pacing wires were placed on the base of the right ventricle. The patient was placed in a Trendelenburg position and
flows on bypass were lowered. The aortic cross clamp was removed and flows were slowly brought back up. All bypass grafts were inspected and were free from kinking or twisting. The distal and proximal anastomoses appeared hemostatic. Once
transesophageal echocardiography appeared satisfactory for de-airing, the flows were temporarily lowered for root vent removal. After verifying acceptable parameters, we initiated weaning from cardiopulmonary bypass. I did perform Transonic flow
probe assessment of the grafts and found that there was some questionable elevations in pulsatility indices at the main AGLLEGO graft leading into the LAD after the T anastomosis. Therefore I elected to place bulldog clamps proximally and distally on
the GALLEGO and redo the anastomosis while off pump. There was torrential backflow from the [place] GALLEGO, significant backflow from the [place] LAD, and significant backflow into the ISAMAR graft from either the circumflex or the diagonal vessels. I then
reperformed the anastomosis again with 7-0 Prolene and secured this with a micro core knot. When I manually compressed the proximal LAD there was significant increase in the GALLEGO flow. Once we were off cardiopulmonary bypass, the venous cannula
was clamped and removed. A test dose of protamine was administered and the patient was monitored for any adverse reaction before resuming protamine. Once half of the protamine dose was delivered, pump suckers were turned off and the systolic blood
pressure was lowered for aortic decannulation. The aortic cannula was removed and pursestrings were tied down. All cannulation sites were oversewn with a 4-0 prolene. The mammary bed was inspected and hemostasis was confirmed. Once the mediastinum
was hemostatic, 19Fr Anthony drain was placed in the left and right pleural cavity and two 24Fr Anthony drains were placed within the pericardium. The sternum was approximated with 4 #7 single and 3 #8 double stainless steel wires and 3 square plates.
Fascia was approximated with #1 vicryl suture. The subcutaneous, dermis and epidermis were closed in layers in a running fashion. The skin wound was cleansed and dressed.
All instrument, sponge, and needle counts were confirmed to be correct x 2 at the end of the operation. The patient was transferred to the cardiac intensive care unit in critical but stable condition.
IDr. William, was present, scrubbed for, and performed all critical elements of this procedure.
William Valdivia MD, MS
Cardiothoracic Surgeon
[facility]
This operative dictation was created using the T-ZONE dictation system. Please excuse any grammatical, typographical, or 'sound alike' errors
[2025-02-28 15:22] LABS: Glucose - Point of Care 129 mg/dl (70-99)
[2025-02-28] MEDS: VERSED 0.5 MG IV (15:25)
[2025-02-28 15:35] LABS: B.E. 1.2 mmol/L; HCO3 26.6 mmol/L (21-28); Ionized Calcium 1.22 mMOL/L (1.15-1.33); O2 Saturation % 99.2 % (94-98); PCO2 45 mmHg (35-48); PO2 163 mmHg (83-108); Potassium 4.1 mMOL/L (3.5-5.1); Sodium 138 mMOL/L (136-145); pH 7.38 (7.35-7.45)
--- NOTE | 2025-02-28 15:35 | PTCARENOTE ---
Pt arrived from CVOR to CVICU around 1520. Pt is intubated and sedated. Pt currently SR with HR 79. BP 129/64 MAP 87. CVP 8. Epicardial V wire set to VVI 50/7/3. Pulse oximetry 98%. #8ET tube in place at 24cm right lip. Oral care completed. Vent set
to SIMV FiO2 40%, rate 14, TV 500, PEEP 5, Pressure support 5. Mediastinal chest tubes x2 and left/right pleural chest tubes in place to -20 suction, no sign of air leak or crepitus, drainage red in color. Bowel sounds hypoactive. Murillo catheter in
place, Murillo care completed. Midsternal incision approximated and BECCA. Pt with right radial Rosie intact. Right IJ cordis with SLIC in place. Mehul hugger in place, temp 96.9 on arrival. Pt remains on Precedex 0.5mcg/kg/hr, Levo 2mcg/min, Insulin
2.6units/hr. Post-op EKG and x-ray obtained. Labs collected and reviewed.
[2025-02-28 15:38] LABS: Hematocrit 25.3 % (39.0-52.0); Platelet Count 166 10^3/uL (130-400)
--- NOTE | 2025-02-28 15:38 | W.PN.CARDCBS ---
Today's Communication / Plan
-
RECOMMENDATIONS:
-continue aspirin and clopidogrel
-hemodynamically stable
-will follow
Impression / Plan
-
PCP: Mary Edmondson
Primary home health rn: Royce Hernandez
Impression:
Chest pain with STEMI s/p PCI/stent of RCA with additional CADz leading to CABG: GALLEGO-LAD and [id number]-Onyw-OM and RASHAWN ligation
History of multivessel coronary artery disease scheduled for CABG 03/01/2025
Elevated troponin
ST elevation [place] 01/20/2025 with SCARLETT to RCA
Diabetes mellitus
Hypertension
Hyperlipidemia
Bipolar disorder
History of alcoholism
History of drug use, on Suboxone
Anxiety
PTSD
Spinal stenosis
GERD
Anemia
history of PE
Previous cardiovascular testing:
Echo 02/20/2025: Normal LV size, wall thickness, LVEF 50 to 55%, basal inferior hypokinesis, structurally normal mitral valve with mild to moderate MR. Normal RV size and function
Cardiac cath 01/20/2025:prox OM1 60 to 70% stenosis; LAD: prox tubular lesion, slightly kinked midportion of LAD;, D1: large diagonal w/70-80% proximal dz
Plan:
-Post op still sedated
-Continue aspirin and clopidogrel given recent stent of RCA
-Continue high intensity statin therapy
-Remains in SR. Will follow
Progress Note - Product Architect
Subjective
Date of Service: February 28, 2025
Intubated and sedated post op
Objective
Labs:
Labs
Hgb 8.0 g/dL (13.0-18.0) L 02/28/25 15:18
Hct 25.3 % (39.0-52.0) L 02/28/25 15:18
Plt Count 166 10^3/uL (130-400) D 02/28/25 15:18
PT 13.3 Sec (11.4-14.6) 02/24/25 16:35
INR 0.98 02/24/25 16:35
APTT Cancelled 02/28/25 13:00
Sodium 143 mmol/L (135-145) 02/28/25 05:50
Potassium 4.0 mmol/L (3.5-5.1) 02/28/25 05:50
BUN 10 mg/dl (9-20) 02/28/25 05:50
Creatinine 0.9 mg/dL (0.7-1.3) 02/28/25 05:50
Glucose 99 mg/dl (70-99) 02/28/25 05:50
Vital Signs and I&O:
Vital Signs
Temp Pulse Resp BP Pulse Ox
96.9 F L 78 14 143/86 97
02/28/25 15:24 02/28/25 15:24 02/28/25 15:24 02/28/25 08:16 02/28/25 15:24
Vital Signs
Temp Pulse Resp BP Pulse Ox
96.9 F L 78 14 143/86 97
02/28/25 15:24 02/28/25 15:24 02/28/25 15:24 02/28/25 08:16 02/28/25 15:24
Intake & Output
02/25/25 02/26/25 02/27/25 02/28/25
23:59 23:59 23:59 23:59
Intake Total 532 / 532 674 / 674 2886 / 2886 306.1 / 306.1
Output Total
Balance 532 / 532 674 / 674 2886 / 2886 281.1 / 281.1
Physical Exam
Physical Exam
Gen: ET tube in place. Glasses in place. NC/AT
Lungs: Chest tubes in place. Clear lung caldera anteriorly
CV: RRR
Ext: No edema
[2025-02-28 15:39] LABS: Mixed Venous O2 Saturation 77.1 %
--- NOTE | 2025-02-28 15:44 | CON.INTV ---
Consultation
Consultation Request
Date/Time Consultation Requested: 02/28/25-3 45 PM
Date/Time Consultation Performed: 02/28/25-4 p.m.
Requesting Provider: Dr. Valdivia
Performing Provider: Dr. Delgado
Reason for Consultation: ventilator/postoperative critical care management
Medical History
-
Chief Complaint: CAD
History of Present Illness:
49-year-old male with a history of hypertension, diabetes, bipolar, substance abuse, pulmonary embolism, reflux who was found to have significant multivessel CAD status post STEMI and PCI to RCA and underwent multi artery coronary artery
bypass-santa's helper consulted for postoperative ventilator/critical care management 02/28/2025. The patient is sedated on the ventilator seen postoperatively in the surgical intensive care unit. Review of systems was unobtainable. Operative
records were reviewed. Chest tube output was reviewed. Pressors were reviewed. Ventilator settings were reviewed.
Past Medical History
Past Medical History: None ( Bipolar. Alcohol use disorder. Neuropathy. PTSD. CAD. Hypertension. Diabetes. Hyperlipidemia. Spinal stenosis. History of PE. GERD. Hemicolectomy. Colostomy. Hydrocelectomy. Ileostomy. Right hip surgery.)
Social History
Tobacco: Non-smoker
Alcohol: Former ( Sober since 2019)
Drug: Former User
Living: With Family
Occupational Exposures: No known asbestos exposure
Environmental Exposures: no known tuberculosis exposure
Family History
Family History: Reviewed & Not Pertinent and Other ( Father-diabetes and CAD. Mother lung cancer. Siblings diabetes. Sister-leukemia.)
Allergies / Home Medications
Allergies
Allergy/AdvReac Type Severity Reaction Status Date / Time
Iodinated Contrast Media Allergy Unknown Hives Verified 02/24/25 14:26
Penicillins Allergy Anaphylaxis Verified 02/24/25 14:25
Home Medications
�Medication �Instructions �Recorded �Confirmed �Last Taken �Type
aspirin 81 mg tablet,delayed 81 mg PO DAILY Blood clot 03/09/23 02/24/25 02/21/25 History
release prevention/tx
baclofen 10 mg tablet 10 mg PO BID Pain 03/09/23 02/24/25 02/23/25 History
quetiapine 400 mg tablet 400 mg PO HS Mental Health/Anxiety 03/09/23 02/24/25 02/23/25 History
atorvastatin 40 mg tablet 80 mg PO DAILY High Cholesterol 02/21/25 02/21/25 Unknown History
buspirone 10 mg tablet 10 mg PO BID Mental Health/Anxiety 02/21/25 02/21/25 Unknown History
insulin glargine 100 unit/mL (3 29 unit SC HS Diabetes 02/21/25 02/21/25 Unknown History
mL) subcutaneous pen
lisinopril 5 mg tablet 5 mg PO DAILY Blood Pressure 02/21/25 02/21/25 Unknown History
melatonin 10 mg tablet 10 mg PO HS Sleep 02/21/25 02/21/25 Unknown History
metoprolol succinate 25 mg 25 mg PO DAILY Heart 02/21/25 02/21/25 Unknown History
tablet,extended release 24 hr Disease/Condition
pantoprazole 40 mg tablet,delayed 40 mg PO DAILY Gastrointestinal 02/21/25 02/21/25 Unknown History
release Issue
ticagrelor 90 mg tablet (Brilinta) 90 mg PO BID Blood Clot 02/21/25 02/21/25 Unknown History
Prevention/Tx
buprenorphine 8 mg-naloxone 2 mg 1 film buccal DAILY SUBSTANCE USE 02/24/25 02/24/25 02/23/25 History
sublingual film DISORDER
Review of Systems
-
Unable to Obtain full review of systems at this time due to: Other ( per HPI)
Vitals / Labs / Diagnostic Testing
Vital Signs
Temp Pulse Resp BP Pulse Ox
96.9 F L 78 14 143/86 97
02/28/25 15:24 02/28/25 15:24 02/28/25 15:24 02/28/25 08:16 02/28/25 15:24
Laboratory Results
02/27/25 02/28/25 02/28/25
16:46 05:50 13:00
APTT 75.4 H 52.7 H Cancelled
pH
pCO2
pO2
HCO3
O2 Delivery Level
02/28/25
15:18
APTT
pH 7.38
pCO2 45
pO2 163 H
HCO3 26.6
O2 Delivery Level
Microbiology
02/21/25 12:41 Urine Urine Culture - Final
NO GROWTH
02/21/25 12:30 Nose MRSA Screen - Final
No Methicillin Resistant Staphylococcus aureus isolated.
Diagnostic Testing:
Physical Exam
-
Exam:
well-nourished and well-developed in no apparent distress
HEENT-atraumatic, normocephalic, oral tracheal intubation
Heart-regular rate and rhythm-no murmurs, rubs or gallops
Chest-clear to auscultation, no wheezes, crackles, median sternotomy bandage is not removed
Abdomen soft nondistended
Extremities-no cyanosis, clubbing, edema and good peripheral pulses
Integument-intact, no rashes, lesions or ecchymosis
Neurologically not alert, not oriented, not moving any of his extremities sedated on a ventilator
Assessment
-
49-year-old male with a history of hypertension, diabetes, bipolar, substance abuse, pulmonary embolism, reflux who was found to have significant multivessel CAD status post STEMI and PCI to RCA and underwent multi artery coronary artery
bypass-santa's helper consulted for postoperative ventilator/critical care management 02/28/2025.
CAD status post NSTEMI found to have multivessel coronary artery disease with recent history of PCI to RCA-preoperative preserved EF
Status post multi artery x [id number], GALLEGO-ISAMAR Y to diagonal to OM- Dr. Valdivia 02/28/2025
Anemia-microcytic
Hyperglycemia
Conditions present prior to admission:
Bipolar.
Alcohol use disorder-Sober since 2019.
Neuropathy.
PTSD.
CAD.
Hypertension.
Diabetes.
Hyperlipidemia.
Spinal stenosis.
History of PE.
GERD.
Hemicolectomy. Colostomy. Hydrocelectomy. Ileostomy. Right hip surgery.
Plan
ventilator settings reviewed
FiO2 will be weaned
Minute ventilation will be adjusted
Arterial blood gases will be monitored
Spontaneous breathing trial will be attempted with hopeful extubation after anesthesia/sedation wear off
Pulmonary artery catheter parameters will be followed
Pressors/antihypertensive/inotropes/diuretics will be provided as needed
Monitor chest tube output
Monitor hemoglobin
Monitor platelet count and coags
Transfuse blood product if needed
CT surgery following chest tubes
Monitor blood sugar
Insulin drip per protocol
Aspiration precautions
VAP prevention protocol
DVT prophylaxis
Early nutrition
Early mobilization
Critical care statement: A total of 55 minutes of critical care time was provided for this patient today. This includes management of ventilator, spontaneous breathing trial, arterial blood gases, pressors, of unstable vital signs, evaluation of the
patient at bedside, reviewing the patient's pertinent medical records including radiographs, microbiology, laboratory evaluations, and discussion with primary team and critical care nursing.
Diagnostic data:
Chest x-ray/-lungs are clear
CT chest/-mild coronary artery calcification, stent within the right main coronary artery, lungs with bibasilar subsegmental atelectasis lungs are otherwise clear
Echocardiogram 02/20/2025-EF 50-55%, moderate mitral regurgitation
Transesophageal echocardiogram 02/28/2025-EF 60% with no regional wall motion abnormalities, moderate mitral regurgitation
Data Reviewed
-
Radiology: Report reviewed by me
CT Scan: Report reviewed by me
Medical Tests (Nuc Med, Echo etc): Report reviewed by me
Labs: Labs reviewed by me
Old Records: Reviewed
Critical Care Time (in minutes): 55
[2025-02-28 15:45] LABS: Blood Urea Nitrogen 12 mg/dl (9-20); Estimated Creatinine Clearance 108 ml/min; Glucose 119 mg/dl (70-99)
[2025-02-28 15:46] LABS: APTT 26.1 Sec (23.4-35.0); INR 1.28; PT 16.3 Sec (11.4-14.6)
[2025-02-28 16:09] LABS: Glucose - Point of Care 116 mg/dl (70-99)
[2025-02-28] MEDS: PRECEDEX 100 IV (16:26)
[2025-02-28] MEDS: NSS 500 IV (16:27)
[2025-02-28] MEDS: FERRLECIT IV (16:28)
[2025-02-28] MEDS: PACERONE PO (16:29)
[2025-02-28] MEDS: NEURONTIN PO ×2 (16:29→22:16)
[2025-02-28] MEDS: TYLENOL PO ×2 (16:29→22:16)
[2025-02-28 17:04] LABS: Glucose - Point of Care 118 mg/dl (70-99)
[2025-02-28 18:14] LABS: Glucose - Point of Care 96 mg/dl (70-99)
[2025-02-28] MEDS: DILAUDID 0.5 MG IV ×2 (18:28→21:28)
--- NOTE | 2025-02-28 18:32 | PTCARENOTE ---
CPAP initiated at 1735. ABG ran on EPOC with CT SUSANNA Marisa. Results reviewed and okay to extubated. Respiratory to bedside, extubated at 1820 to 6L nasal cannula. Pulse oximetry 99%. Pt able to move all extremities. Unable to do incentive spirometer.
Pt remains SR with HR 93. BP 119/65 MAP 83. CVP 10. Remains on Levo at 1mcg/min.
[2025-02-28 19:07] LABS: Glucose - Point of Care 100 mg/dl (70-99)
[2025-02-28] MEDS: TORADOL 15 MG IV (19:17)
[2025-02-28 19:19] LABS: Hematocrit 27.1 % (39.0-52.0); Hemoglobin 8.5 g/dL (13.0-18.0); Platelet Count 229 10^3/uL (130-400)
[2025-02-28] MEDS: LR 250 ML IV (19:57)
--- NOTE | 2025-02-28 20:00 | PTCARENOTE ---
Received pt from [facility]. pt is s/p CABGx3 and RASHAWN clip with Dr. Valdivia. pt is AAOx4 but drowsy, states pain is 9/10, see MAR. NSR on monitor. VSS. heart sounds audible, rub present, radial and DP pulses palpable, temp epicardial V-wires set to VVI
50/7/3. lung sounds diminished throughout, spo2 100 on 6LNC, will begin to wean down, x2 MS CT and L/R pleura CT to -20 wall suction, no air, no tidaling, no crepitus. hypoactive BSx4, abdomen soft, non tender, tolerating ice chips. pt voiding clear
yellow urine via beyer catheter. surgical sites maintained. right IJ cordis/slick, right radial Mobile, and PIV all maintained, leveled and zeroed. Levophed and insulin gtts infusing. mouth care provided, CHG wipes used during , beyer care
provided. call bhat within reach. will continue to monitor.
[2025-02-28 20:02] LABS: Glucose - Point of Care 100 mg/dl (70-99)
[2025-02-28] MEDS: OFIRMEV 100 IV (20:07)
[2025-02-28] MEDS: SENOKOT-S PO (20:51)
[2025-02-28] MEDS: LIORESAL 10 MG PO (20:51)
[2025-02-28] MEDS: LOW STRENGTH ASPIRIN 81 MG PO (20:54)
[2025-02-28 22:04] LABS: Glucose - Point of Care 82 mg/dl (70-99)
[2025-02-28] MEDS: SEROQUEL 400 MG PO (22:14)
[2025-02-28] MEDS: PACERONE 200 MG PO (22:14)
[2025-02-28] MEDS: CALCIUM GLUCONATE 100 IV (22:16)
[2025-02-28] MEDS: ROXICODONE 5 MG PO (23:06)
[2025-03-01] VITALS (28 sets, daily range): BP systolic 81–140; BP diastolic 46–95; PULSE 105; O2SAT 94–97; BMI 29.2
--- NOTE | 2025-03-01 | PTCARENOTE ---
NSR on monitor. Levo gtt titrated up to 3mcg for MAP >65. 250ml of LR given. 2g of calcium IVPB given. 500ml NS given. on going pain management, see MAR. repositioning q2hrs for pt's comfort. call bhat within reach. will continue to monitor.
[2025-03-01 00:17] LABS: Glucose - Point of Care 92 mg/dl (70-99)
[2025-03-01] MEDS: NSS 500 IV (00:45)
[2025-03-01] MEDS: DILAUDID 0.5 MG IV ×3 (01:54→18:34)
[2025-03-01] MEDS: VANCOCIN 200 IV ×2 (01:59→14:49)
[2025-03-01 02:12] LABS: Glucose - Point of Care 89 mg/dl (70-99)
[2025-03-01 02:18] LABS: Hematocrit 22.8 % (39.0-52.0); Hemoglobin 7.3 g/dL (13.0-18.0); Mean Corpuscular Hgb 24.2 pg (27.0-31.0); Mean Corpuscular Volume 75.5 fL (80.0-94.0); Mean Platelet Volume 9.8 fL (7.4-10.4); Platelet Count 213 10^3/uL (130-400); Red Blood Cell Count 3.02 10^6/uL (4.70-6.10); Red Cell Dist. Width 15.8 % (11.5-14.5); White Blood Cell Count 12.5 10^3/uL (4.8-10.8)
[2025-03-01 02:26] LABS: PT 15.5 Sec (11.4-14.6)
[2025-03-01 02:29] LABS: Blood Urea Nitrogen 15 mg/dl (9-20); Calcium 8.5 mg/dl (8.4-10.2); Carbon Dioxide 24 mmol/L (22-30); Chloride 111 mmol/L (98-107); Estimated Creatinine Clearance 97 ml/min; Glucose 87 mg/dl (70-99); Magnesium 2.6 mg/dl (1.6-2.3); Potassium 4.3 mmol/L (3.5-5.1); Sodium 142 mmol/L (135-145); eGFR > 60.00
[2025-03-01 03:03] LABS: Glucose - Point of Care 123 mg/dl (70-99)
[2025-03-01] MEDS: TORADOL 15 MG IV ×3 (03:17→20:52)
--- NOTE | 2025-03-01 04:00 | PTCARENOTE ---
Pt assessment unchanged. SR/ST on monitor. VSS. Levo off at 0310. labs drawn and sent. Hbg is 7.3, per CVPA, Pt will be de-lined but remain in bed in AM. continued pain management, see DEC.
--- NOTE | 2025-03-01 04:00 | W.PN.CT ---
Today's Communication / Plan
-
Plan:
-No major issues overnight. Hemodynamically and neurologically intact
-Successfully extubated last night 02/28/25 @ 1820
-Weaned off Levophed gtt this AM @ 0300 after 500 mL of IV fluids, remains on insulin gtt per protocol
-H/H 7.3/22.8, partly hemodilutional from IV fluids, monitor for possible transfusion
-No swan, u/o since OR 675 mL
-Suspected postop acute pericarditis, ST elevations noted on EKG, as well as +rub. Currently on Toradol, will discuss addition of Colchicine
-Monitor chest tube output: 2meds 185 mL, R/L pleurals 95/170. CXR looks clear on my review without ptx, f/u official report
-Increased Amiodarone to 400 mg TID given postop tachycardia. AM dose of Lopressor on hold given soft BP
-Cont. current meds (ASA, Plavix, Lipitor, Amiodarone, Subutex, Seroquel, BB if BP permits)
-D/C'd SLIC and A-line this AM @ 0445
-Will d/c beyer catheter @ 0600
-Will maintain insulin gtt another day since pt is a diabetic, A1C 5.9, Diabetes education/management following
-Will transfer to tele phase tomorrow when off insulin gtt
-Maintain temporary V-wire, will likely pull tomorrow
-Maintain cordis
-Encourage use of IS
-Wean off of O2 as tolerated
-OOB into chair/Ambulate
Assessment / Plan
-
Assessment:
S/p Sternotomy/Multi arterial coronary artery bypass grafting x 3 (In situ GALLEGO to LAD, GALLEGO-ISAMAR Y to Diag to OM)/Left atrial appendage exclusion [35 mm device, serial #[id number]], by Dr. Valdivia, 02/28/25, pod#1
-Multivessel CAD
-Hx STEMI S/p SCARLETT to RCA, 01/20/25
-Brilinta washout
-LVEF 60% per intraop TENA
-Moderate MR
-HTN
-HLD
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
-Hx PE
-Spinal stenosis
-Osteoarthritis
-GERD
-PTSD
-hx IVDU (on Suboxone @ home, transitioned to Subutex postop)
-Hx ETOH abuse
-Anemia
-Hx C-difficile
-SBO
-Perforated diverticulitis S/P hemicolectomy
-Acute postop blood loss/Anemia on preop Anemia (stable without blood transfusion)
-Acute introap coagulopathy (transfused 2FFP intraop)
-Acute postop atelectasis
-Acute postop hypovolemia with subsequent hypervolemia
-Suspected postop acute pericarditis, ST elevations noted on EKG, as well as +rub
Discussed patient care with: Cardiology, Nursing, Respiratory Therapy, Pharmacy and Care Team
Subjective
Procedure
S/p Sternotomy/Multi arterial coronary artery bypass grafting x 3 (In situ GALLEGO to LAD, GALLEGO-ISAMAR Y to Diag to OM)/Left atrial appendage exclusion [35 mm device, serial #[id number]]
-
Date of Service: March 01, 2025
C/O incisional pain, otherwise feels well
Objective Data
-
Lab Results
03/01/25 02:02
03/01/25 02:02
PT 15.5 Sec (11.4-14.6) H 03/01/25 02:02
INR 1.20 03/01/25 02:02
APTT 26.1 Sec (23.4-35.0) 02/28/25 15:18
Vital Signs
Vital Signs
Temp Pulse Resp BP Pulse Ox
100.2 F 103 16 86/52 98
03/01/25 03:00 03/01/25 03:00 03/01/25 03:00 03/01/25 03:00 03/01/25 03:00
CT Intake/Output/Weight
02/28/25 02/28/25 03/01/25
06:59 18:59 06:59
Intake Total 504 / 3150 149.3 / 1142.6 993.3 / 1142.6
Output Total 355 / 960 605 / 960
Balance 504 / 3150 -205.7 / 182.6 388.3 / 182.6
SaO2: 98 (2L)
Physical Exam
-
General: Awake, Oriented and AOx3
Cardiovascular: Regular rate & rhythm, No Murmurs, Rub (probable acute pericarditis) and No Gallop
Respiratory: Decreased Breath Sounds (at bases, otherwise clear)
Sternum: Stable
Incision: Clean, Dry, Intact and Dressing Intact
Extremities: No Edema
Data Reviewed
-
Lab Results: Results Reviewed
Medications: Active Meds Reviewed
Chest X-Ray: Report Reviewed and Image Reviewed
ECG: Report Reviewed and Image Reviewed
[2025-03-01 04:08] LABS: Glucose - Point of Care 108 mg/dl (70-99)
[2025-03-01] MEDS: ROXICODONE 5 MG PO ×3 (04:14→14:49)
[2025-03-01] MEDS: TYLENOL 1000 MG PO ×3 (04:51→21:57)
[2025-03-01 04:53] LABS: Glucose - Point of Care 89 mg/dl (70-99)
[2025-03-01] MEDS: CALCIUM GLUCONATE 130 MG IV (05:43)
[2025-03-01 06:35] LABS: Glucose - Point of Care 91 mg/dl (70-99)
--- NOTE | 2025-03-01 07:19 | W.PN.INTV ---
Today's Communication / Plan
Recommendations
tolerated extubation
Wean FiO2
Increase activity
Analgesia
Monitor chest tube output
Follow hemoglobin
Transfuse if needed
Pressors weaned
Continues on insulin drip and ICU status
Assessment
-
49-year-old male with a history of hypertension, diabetes, bipolar, substance abuse, pulmonary embolism, reflux who was found to have significant multivessel CAD status post STEMI and PCI to RCA and underwent multi artery coronary artery
bypass-ammonia refrigeration technician consulted for postoperative ventilator/critical care management 02/28/2025.
CAD status post NSTEMI found to have multivessel coronary artery disease with recent history of PCI to RCA-preoperative preserved EF
Status post multi artery x [id number], GALLEGO-ISAMAR Y to diagonal to OM- Dr. Valdivia 02/28/2025
Anemia-microcytic
Hyperglycemia
Conditions present prior to admission:
Bipolar.
Alcohol use disorder-Sober since 2019.
Neuropathy.
PTSD.
CAD.
Hypertension.
Diabetes.
Hyperlipidemia.
Spinal stenosis.
History of PE.
GERD.
Hemicolectomy. Colostomy. Hydrocelectomy. Ileostomy. Right hip surgery.
Plan
Tolerated extubation-remains critically ill on insulin drip
Wean FiO2
Encourage incentive spirometry
Increase activity
Aspiration precautions
Pulmonary artery catheter and arterial line will be removed
Pressors have been weaned
Continue to monitor chest tube output
Follow hemoglobin
Continue to follow platelet count and coags
Transfuse blood product as needed
CT surgery following chest tubes as well
Follow blood sugar
Insulin supplementation continues as needed
Early nutrition
Early mobilization
DVT prophylaxis
Patient will be transferred to telemetry phase once off insulin drip-likely in 24 hours
Critical care statement: A total of 36 minutes of critical care time was provided for this patient today. This includes management of unstable vital signs, evaluation of the patient at bedside, reviewing the patient's pertinent medical records
including radiographs, management of insulin drip microbiology, laboratory evaluations, and discussion with primary team, consultants, pharmacy, nutrition, physical therapy, case management, charge nurse, critical care nursing, and respiratory
therapy.
Diagnostic data:
Chest x-ray/-lungs are clear
CT chest/-mild coronary artery calcification, stent within the right main coronary artery, lungs with bibasilar subsegmental atelectasis lungs are otherwise clear
Echocardiogram 02/20/2025-EF 50-55%, moderate mitral regurgitation
Transesophageal echocardiogram 02/28/2025-EF 60% with no regional wall motion abnormalities, moderate mitral regurgitation
Subjective Dataa
Subjective Data
Date of Service:
Date of Service: March 01, 2025
Chief Complaint: Medical Specialist Follow Up, Pulmonary Follow Up and Vent Management Follow Up
Subjective:
tolerated extubation, complains of some incisional pain, no shortness of breath or abdominal pain
Review of Systems
General: Other ( Per HPI)
Objective Data
Data Reviewed
Vital Signs / I&O / Oxygen:
Vital Signs
Temp Pulse Resp BP Pulse Ox
100.1 F 105 18 97/72 94
03/01/25 06:00 03/01/25 07:00 03/01/25 07:00 03/01/25 07:00 03/01/25 07:00
Intake and Output
02/28/25 03/01/25 03/02/25
06:59 06:59 06:59
Intake Total 3150 / 3150 1185.3 / 1195.7 10.4 / 10.4
Output Total 1130 / 1160
Balance 3150 / 3150 55.3 / 35.7 -19.6 / -19.6
SaO2 [CPAP] 100
SaO2 [SIMV] 98
SaO2 94
Nasal Cannula flow liters per 2
minute
Physical Exam
General: Respiratory Distress (n) and Comfortable
HEENT: Normocephalic, Anicteric and Moist Mucous Membranes
Cardiovascular: Regular Rhythm
Respiratory: Crackles (n), Rhonchi (n), Non-Labored Respirations, Accessory Resp Muscle Use and Stridor (n)
GI: Soft, Non Distended and Non Tender
Neurology: Awake, Alert and No Motor Deficits
Skin: Warm, Good Color, Cyanosis (n), Jaundice (n) and Rash (n)
Labs/Micro/Reports
Lab Data
03/01/25 02:02
03/01/25 02:02
Laboratory Results
02/28/25 02/28/25 03/01/25
13:00 15:18 02:02
PT 16.3 H 15.5 H
INR 1.28 1.20
APTT Cancelled 26.1
pH 7.38
pCO2 45
pO2 163 H
HCO3 26.6
O2 Delivery Level
Microbiology
02/21/25 12:41 Urine Urine Culture - Final
NO GROWTH
02/21/25 12:30 Nose MRSA Screen - Final
No Methicillin Resistant Staphylococcus aureus isolated.
--- NOTE | 2025-03-01 07:55 | W.PN.ANS.POP ---
Anesthesia Post Operative
- Anesthesia Post Op Note
Vital Signs Stable-See Nursing Note: Yes
Airway Patent: Yes
Adequate Pain Control: Yes
Change in Mental Status: No
Current Postoperative Nausea & Vomiting: No
Anesthesia Complications: No
General Anesthetic Recall: No
Unplanned Admission: No
Post Op Hydration Adequate: Yes
[2025-03-01 08:18] LABS: Glucose - Point of Care 94 mg/dl (70-99)
--- NOTE | 2025-03-01 08:30 | PTCARENOTE ---
Assumed care of patient at 0700. Pt is awake, alert, and oriented. Pt with continued complaints of sternal and upper right back pain. PRN Pain medications administered per orders. Pt remains ST with HR 108. BP 122/58 MAP 76. Rub on auscultation.
Epicardial V wire in place set to 50/7/3. Pulse oximetry 95% on room air. Mediastinal chest tubes x 2 and left/right pleural chest tubes in place, no sign of air leak or crepitus, drainage serosanguineous. Pt tolerating clear liquids. Pt is due to
void. Midsternal incision approximated and ARMATURE REWINDER. Right IJ cordis in place with KVO. Remains on insulin gtt per glycemic protocol.
[2025-03-01] MEDS: OFIRMEV 100 IV (08:38)
[2025-03-01] MEDS: BUSPAR 10 MG PO ×2 (08:39→19:34)
[2025-03-01] MEDS: NEURONTIN 100 MG PO ×3 (08:39→21:57)
[2025-03-01] MEDS: LIORESAL 10 MG PO ×2 (08:39→19:33)
[2025-03-01] MEDS: COLCHICINE 0.3 MG PO (08:40)
[2025-03-01] MEDS: SUBUTEX 8 MG SL (08:41)
[2025-03-01] MEDS: BACTROBAN 2% OINTMENT 1 APPLIC NASAL ×2 (09:26→19:35)
[2025-03-01] MEDS: PLAVIX 75 MG PO (09:27)
[2025-03-01] MEDS: LIDOCAINE 4% PATCH 1 PATCH TOPICAL (09:27)
[2025-03-01] MEDS: FEOSOL 325 MG PO (09:27)
[2025-03-01] MEDS: MAGNESIUM OXIDE 500 MG PO ×2 (09:27→19:34)
[2025-03-01] MEDS: VITAMIN C 500 MG PO (09:27)
[2025-03-01] MEDS: LOW STRENGTH ASPIRIN 81 MG PO (09:28)
[2025-03-01] MEDS: PROTONIX 40 MG PO (09:28)
[2025-03-01] MEDS: SENOKOT-S 1 TABLET PO ×2 (09:28→19:34)
[2025-03-01] MEDS: LIPITOR 80 MG PO (09:28)
[2025-03-01] MEDS: PACERONE 400 MG PO ×3 (09:28→21:57)
--- NOTE | 2025-03-01 10:51 | PTCARENOTE ---
Pleural chest tubes d/c'd per order. Pt assisted OOB to chair. Pt tolerated working with cardiac rehab.
[2025-03-01] MEDS: LOPRESSOR 12.5 MG PO ×2 (10:57→19:34)
[2025-03-01] MEDS: LASIX 20 MG IV (10:58)
--- NOTE | 2025-03-01 12:06 | W.PN.CARDCBS ---
Addendum entered and electronically signed by Storm Watson MD 03/01/25 14:32:
I saw and examined the patient.
The Nuclear Auxiliary Operator's note was reviewed and I agree with the note.
Comment: Briefly, 49-year-old man with known multivessel CAD and history of inferior STEMI treated at [facility] 01/20/2025 who presented to [facility] with substernal chest discomfort found to have rise and fall in troponin peaking at 0.201 consistent
with NSTEMI. He underwent surgical revascularization CABG x 3 as well as left atrial appendage exclusion with Dr. Valdivia on 02/28/2025.
At the time of my evaluation he was resting comfortably out of bed to chair
Appears euvolemic on exam
Maintaining sinus rhythm on telemetry
Agree with medical management of CAD: aspirin/Plavix, high intensity statin, beta-ez
Diffuse ST elevations noted on ECG and therefore he is being treated with colchicine for possible pericarditis
Rest per Laila Lopez
Original Note:
Today's Communication / Plan
-
Continue postop care
Follow hemoglobin. Suspect tachycardia in part secondary to postop anemia. Would consider transfusion and decreasing amiodarone back to 200 mg 3 times daily, defer to surgical service
Continue treatment of postop pericarditis
Impression / Plan
-
PCP: Mary Edmondson
Primary functional mental disability teacher: Dr. Royce Hernandez of [facility]
Impression:
Chest pain with STEMI s/p PCI/stent of RCA with additional CADz leading to CABG: GALLEGO-LAD and EPRO-ADUD-Svix-OM and RASHAWN ligation 02/28/25
History of multivessel coronary artery disease scheduled for CABG 03/01/2025
Elevated troponin
ST elevation [place] 01/20/2025 with SCARLETT to RCA
Diabetes mellitus
Hypertension
Hyperlipidemia
Bipolar disorder
History of alcoholism
History of drug use, on Suboxone
Anxiety
PTSD
Spinal stenosis
GERD
Anemia
history of PE
Previous cardiovascular testing:
Echo 02/20/2025: Normal LV size, wall thickness, LVEF 50 to 55%, basal inferior hypokinesis, structurally normal mitral valve with mild to moderate MR. Normal RV size and function
Cardiac cath 01/20/2025:prox OM1 60 to 70% stenosis; LAD: prox tubular lesion, slightly kinked midportion of LAD;, D1: large diagonal w/70-80% proximal dz
Plan:
-s/p CABG x3 (in situ GALLEGO to LAD, GALLEGO to ISAMAR Y to diagonal to OM), RASHAWN clip 02/28/2025
-doing well
-hgb 7.3 on 03/01. also tachycardic. CT surgery increased amiodarone to 400mg TID due to ST, ideally would reduce back to 200mg TID. Suspect tachycardia secondary to anemia and would consider transfusion, defer to primary service. On aspirin and
Plavix. He has recent stent to RCA 01/20/2025.
-He has evidence of pericarditis by postop EKG. He reports his pain is well-controlled with toradol. colchicine also started.
-currently in SR/ST on review of tele
-continue lipitor 80mg QPM
-continue post op care
-encouraged IS
-d/w nursing. d/w CT surgery SUPERVISOR ELECTRONICS TESTING
Progress Note - Bsa/Aml Compliance Officer
Subjective
Date of Service: March 01, 2025
Reports chest pain adequately controlled. Reports some discomfort with taking deep breaths
Objective
Labs:
03/01/25 02:02
03/01/25 02:02
Labs
Hgb 7.3 g/dL (13.0-18.0) L 03/01/25 02:02
Hct 22.8 % (39.0-52.0) L 03/01/25 02:02
Plt Count 213 10^3/uL (130-400) 03/01/25 02:02
PT 15.5 Sec (11.4-14.6) H 03/01/25 02:02
INR 1.20 03/01/25 02:02
APTT 26.1 Sec (23.4-35.0) 02/28/25 15:18
Sodium 142 mmol/L (135-145) 03/01/25 02:02
Potassium 4.3 mmol/L (3.5-5.1) 03/01/25 02:02
BUN 15 mg/dl (9-20) 03/01/25 02:02
Creatinine 1.0 mg/dL (0.7-1.3) 03/01/25 02:02
Glucose 87 mg/dl (70-99) 03/01/25 02:02
Vital Signs and I&O:
Vital Signs
Temp Pulse Resp BP Pulse Ox
98.9 F 101 18 113/62 96
03/01/25 12:05 03/01/25 12:05 03/01/25 12:05 03/01/25 11:20 03/01/25 12:05
Vital Signs
Temp Pulse Resp BP Pulse Ox
98.9 F 101 18 113/62 96
03/01/25 12:05 03/01/25 12:05 03/01/25 12:05 03/01/25 11:20 03/01/25 12:05
Intake & Output
02/27/25 02/28/25 03/01/25 03/02/25
07:59 07:59 07:59 07:59
Intake Total 240 / 240 3150 / 3150 1195.7 / 1206.1 56.3 / 56.3
Output Total 1160 / 1195 285 / 285
Balance 240 / 240 3150 / 3150 35.7 / 11.1 -228.7 / -228.7
Physical Exam
Physical Exam
GEN: No distress, awake, orientedx3. Sitting in chair
HEENT: supple, anicteric, mmm, EOMI
LUNGS: CTA bilaterally, no wheezes/rales
CV: Reg and tacky, S1/S2, no murmur, + rub
ABD: soft, BS+, NT/ND
EXT: No cyanosis, clubbing, edema
NEURO: Gross non-focal
SKIN: Warm, pink, dry. No rash. Sternotomy incision clean dry and intact. Chest tube in place
[2025-03-01 12:11] LABS: Glucose - Point of Care 165 mg/dl (70-99)
[2025-03-01 12:11] LABS: Glucose - Point of Care 129 mg/dl (70-99)
[2025-03-01] MEDS: DILAUDID 1 MG IV ×3 (13:12→21:50)
[2025-03-01] MEDS: FERRLECIT 110 MG IV (13:12)
[2025-03-01] MEDS: NSS IV (13:13)
[2025-03-01 14:59] LABS: Glucose - Point of Care 282 mg/dl (70-99)
[2025-03-01 15:56] LABS: Glucose - Point of Care 187 mg/dl (70-99)
[2025-03-01 17:19] LABS: Glucose - Point of Care 180 mg/dl (70-99)
--- NOTE | 2025-03-01 17:30 | PTCARENOTE ---
Pt off insulin gtt per glycemic protocol. Currently SR with HR 95. BP 124/72 MAP 87. Pulse oximetry 98% on room air. Continued pain management.
[2025-03-01 18:27] LABS: Glucose - Point of Care 121 mg/dl (70-99)
[2025-03-01] MEDS: NOVOLOG FLEXPEN-MODERATE RESISTANCE SC (18:29)
--- NOTE | 2025-03-01 20:00 | PTCARENOTE ---
Pt received awake alert and oriented. Pt c/o 8/10 sternal and upper back pain. Med as needed with dilaudid. Given toradol without relief. Assessment as charted.
[2025-03-01] MEDS: LANTUS 0.2 UNITS SC (21:56)
[2025-03-01] MEDS: SEROQUEL 400 MG PO (21:57)
[2025-03-01 21:58] LABS: Glucose - Point of Care 191 mg/dl (70-99)
[2025-03-02] VITALS (16 sets, daily range): BP systolic 105–153; BP diastolic 52–139; PULSE 110; O2SAT 98; BMI 29.8
[2025-03-02] MEDS: DILAUDID 1 MG IV ×2 (02:12→05:13)
--- NOTE | 2025-03-02 03:32 | W.PN.CT ---
Today's Communication / Plan
-
-pod #2
-no issues overnight, no complaints, ambulates
-CT outputs: 2 meds 75/290 in 12/24 hrs
-follow Hg - 7.0 today (7.3 pm 03/01, 8.5 on 02/28)
-no significant response to 20 iv Lasix on 03/01- continue diuresis
-sinus tach 90s-low 100- on Amio 200 tid, increase BB to 25 bid if BP allows
-? small R PTX- follow radiology report
-Cont. current meds (ASA, Plavix, Lipitor, Amiodarone 200 tid, Colchicine 0.3 qd, Subutex, Seroquel, Buspar, Lopressor 12.5 bid, Feosol, vit C)
-monitor Qt on Amio and Seroquel
-encourage IS, OOB
-appreciate everyone's input
Assessment / Plan
-
Assessment:
S/p Sternotomy/Multi arterial coronary artery bypass grafting x 3 (In situ GALLEGO to LAD, GALLEGO-ISAMAR Y to Diag to OM)/Left atrial appendage exclusion [35 mm device, serial #[id number]], by Dr. Valdivia, 02/28/25, pod#2
-Multivessel CAD
-Hx STEMI S/p SCARLETT to RCA, 01/20/25
-Brilinta washout
-LVEF 60% per intraop TENA
-Moderate MR
-HTN
-HLD
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
-Hx PE
-Spinal stenosis
-Osteoarthritis
-GERD
-PTSD
-hx IVDU (on Suboxone @ home, transitioned to Subutex postop)
-Hx ETOH abuse
-Anemia
-Hx C-difficile
-SBO
-Perforated diverticulitis S/P hemicolectomy
-Acute postop blood loss/Anemia on preop Anemia (stable without blood transfusion)
-Acute introap coagulopathy (transfused 2FFP intraop)
-Acute postop atelectasis
-Acute postop hypovolemia with subsequent hypervolemia
-Suspected postop acute pericarditis, ST elevations noted on EKG, as well as +rub
Discussed patient care with: Nursing and Care Team
Subjective
Procedure
S/p Sternotomy/Multi arterial coronary artery bypass grafting x 3 (In situ GALLEGO to LAD, GALLEGO-ISAMAR Y to Diag to OM)/Left atrial appendage exclusion [35 mm device, serial #[id number]]
-
Date of Service: March 02, 2025
Objective Data
-
PT 15.5 Sec (11.4-14.6) H 03/01/25 02:02
INR 1.20 03/01/25 02:02
APTT 26.1 Sec (23.4-35.0) 02/28/25 15:18
Vital Signs
Vital Signs
Temp Pulse Resp BP Pulse Ox
98.7 F 86 18 124/68 98
03/01/25 20:00 03/01/25 21:57 03/01/25 20:00 03/01/25 21:57 03/01/25 20:00
CT Intake/Output/Weight
03/01/25 03/01/25 03/02/25
06:59 18:59 06:59
Intake Total 1036.0 / 1195.7 125.2 / 125.2
Output Total 775 / 1160 530 / 530
Balance 261.0 / 35.7 -404.8 / -404.8
SaO2: 98
Physical Exam
-
General: Awake and AOx3
Cardiovascular: Regular rate & rhythm, No Murmurs and Rub
Respiratory: Decreased Breath Sounds
Sternum: Stable
Incision: Clean, Dry and Intact
Extremities: No Edema
Abdomen: soft, nontender, nondistended, + bowel sounds
Data Reviewed
-
Lab Results: Results Reviewed
Medications: Active Meds Reviewed
Chest X-Ray: Report Reviewed and Image Reviewed
ECG: Report Reviewed and Image Reviewed
[2025-03-02 04:17] LABS: Hematocrit 22.1 % (39.0-52.0); Mean Corp Hgb Conc. 31.7 g/dL (33.0-37.0); Mean Corpuscular Volume 75.7 fL (80.0-94.0); Mean Platelet Volume 10.3 fL (7.4-10.4); Platelet Count 196 10^3/uL (130-400); Red Blood Cell Count 2.92 10^6/uL (4.70-6.10); Red Cell Dist. Width 15.9 % (11.5-14.5); White Blood Cell Count 11.2 10^3/uL (4.8-10.8)
[2025-03-02 04:42] LABS: Blood Urea Nitrogen 26 mg/dl (9-20); Calcium 8.8 mg/dl (8.4-10.2); Carbon Dioxide 27 mmol/L (22-30); Chloride 103 mmol/L (98-107); Estimated Creatinine Clearance 84 ml/min; Glucose 143 mg/dl (70-99); Magnesium 2.6 mg/dl (1.6-2.3); Potassium 4.3 mmol/L (3.5-5.1); Sodium 137 mmol/L (135-145); eGFR > 60.00
[2025-03-02] MEDS: TYLENOL 1000 MG PO ×3 (05:12→21:40)
--- NOTE | 2025-03-02 06:02 | PTCARENOTE ---
No change in assessment.
[2025-03-02] MEDS: TORADOL 15 MG IV ×2 (07:33→19:53)
[2025-03-02] MEDS: BUSPAR 10 MG PO ×2 (07:35→19:52)
[2025-03-02] MEDS: PROTONIX 40 MG PO (07:35)
[2025-03-02] MEDS: FEOSOL 325 MG PO (07:36)
[2025-03-02] MEDS: LOPRESSOR 12.5 MG PO ×2 (07:36→19:52)
[2025-03-02] MEDS: LOW STRENGTH ASPIRIN 81 MG PO (07:36)
[2025-03-02] MEDS: PACERONE 200 MG PO ×3 (07:36→21:40)
[2025-03-02] MEDS: SENOKOT-S 1 TABLET PO ×2 (07:36→19:52)
[2025-03-02] MEDS: VITAMIN C 500 MG PO (07:36)
[2025-03-02] MEDS: LIPITOR 80 MG PO (07:36)
[2025-03-02] MEDS: LIORESAL 10 MG PO ×2 (07:37→19:52)
[2025-03-02] MEDS: SUBUTEX 8 MG SL (07:37)
[2025-03-02] MEDS: COLCHICINE 0.3 MG PO (07:37)
[2025-03-02] MEDS: PLAVIX 75 MG PO (07:37)
[2025-03-02] MEDS: NEURONTIN 100 MG PO ×3 (07:37→21:40)
[2025-03-02] MEDS: BACTROBAN 2% OINTMENT 1 APPLIC NASAL ×2 (07:39→19:52)
[2025-03-02] MEDS: LASIX 40 MG IV (07:40)
[2025-03-02] MEDS: LIDOCAINE 4% PATCH 1 PATCH TOPICAL (07:40)
--- NOTE | 2025-03-02 07:49 | W.PN.INTV ---
Today's Communication / Plan
Recommendations
Analgesia
Monitor chest tube output
Transfuse as needed
Increase activity
Transfer to telemetry-call pulmonary if respiratory issues arise
Assessment
-
49-year-old male with a history of hypertension, diabetes, bipolar, substance abuse, pulmonary embolism, reflux who was found to have significant multivessel CAD status post STEMI and PCI to RCA and underwent multi artery coronary artery
bypass-gluer and wedger consulted for postoperative ventilator/critical care management 02/28/2025.
CAD status post NSTEMI found to have multivessel coronary artery disease with recent history of PCI to RCA-preoperative preserved EF
Status post multi artery x [id number], GALLEGO-ISAMAR Y to diagonal to OM- Dr. Valdivia 02/28/2025
Anemia-microcytic
Hyperglycemia
Conditions present prior to admission:
Bipolar.
Alcohol use disorder-Sober since 2019.
Neuropathy.
PTSD.
CAD.
Hypertension.
Diabetes.
Hyperlipidemia.
Spinal stenosis.
History of PE.
GERD.
Hemicolectomy. Colostomy. Hydrocelectomy. Ileostomy. Right hip surgery.
Plan
Respiratory status improved-tolerated extubation
Wean FiO2
Encouraged incentive spirometry
Increase activity/out of bed
Aspiration precautions
Continue to monitor chest tube output-removed per surgery
Follow hemoglobin
Continue to follow platelet count and coags
Transfuse blood product as needed
CT surgery following chest tubes as well
Amiodarone continues
Follow blood sugar
Insulin supplementation continues as needed
Gentle diuresis
Early nutrition
Early mobilization
DVT prophylaxis
Patient will be transferred to telemetry phase -gluer and wedger will sign off-call pulmonary if respiratory issues arise
Reviewed the patient's pertinent medical records including radiographs, management of insulin drip microbiology, laboratory evaluations, and discussion with primary team, consultants, pharmacy, nutrition, physical therapy, case management, charge
nurse, critical care nursing, and respiratory therapy.
Diagnostic data:
Chest x-ray/-lungs are clear
CT chest/-mild coronary artery calcification, stent within the right main coronary artery, lungs with bibasilar subsegmental atelectasis lungs are otherwise clear
Echocardiogram 02/20/2025-EF 50-55%, moderate mitral regurgitation
Transesophageal echocardiogram 02/28/2025-EF 60% with no regional wall motion abnormalities, moderate mitral regurgitation
Subjective Dataa
Subjective Data
Date of Service:
Date of Service: March 02, 2025
Chief Complaint: Forest Botany Instructor Follow Up, Pulmonary Follow Up and Vent Management Follow Up
Subjective:
feels better, no complaints of shortness of breath at rest, chest congestion, productive cough, and pain overall controlled, no abdominal pain
Review of Systems
General: Other ( Per HPI)
Objective Data
Data Reviewed
Vital Signs / I&O / Oxygen:
Vital Signs
Temp Pulse Resp BP Pulse Ox
98.6 F 108 18 115/69 94
03/02/25 04:09 03/02/25 04:00 03/02/25 04:09 03/02/25 07:36 03/02/25 04:09
Intake and Output
03/01/25 03/02/25 03/03/25
06:59 06:59 06:59
Intake Total 1185.3 / 1195.7 1145.2 / 1145.2
Output Total 1130 / 1160 1455 / 1455
Balance 55.3 / 35.7 -309.8 / -309.8
SaO2 [CPAP] 100
SaO2 [SIMV] 98
SaO2 94
Nasal Cannula flow liters per 2
minute
Physical Exam
General: Respiratory Distress (n) and Comfortable
HEENT: Normocephalic, Anicteric and Moist Mucous Membranes
Cardiovascular: Regular Rhythm
Respiratory: Crackles (n), Rhonchi (n), Non-Labored Respirations, Accessory Resp Muscle Use and Stridor (n)
GI: Soft, Non Distended and Non Tender
Neurology: Awake, Alert and No Motor Deficits
Skin: Warm, Good Color, Cyanosis (n), Jaundice (n) and Rash (n)
Labs/Micro/Reports
Lab Data
03/02/25 04:05
03/02/25 04:05
Microbiology
02/28/25 10:27 Urine Urine Culture - Final
NO GROWTH
02/21/25 12:41 Urine Urine Culture - Final
NO GROWTH
02/21/25 12:30 Nose MRSA Screen - Final
No Methicillin Resistant Staphylococcus aureus isolated.
[2025-03-02 07:52] LABS: Glucose - Point of Care 141 mg/dl (70-99)
[2025-03-02] MEDS: NOVOLOG FLEXPEN-MODERATE RESISTANCE SC ×2 (07:52→16:00)
--- NOTE | 2025-03-02 08:05 | W.PN.UPDATE ---
Update Note
Progress Note Update
No pacing required since surgery. One bipolar V-vire removed without difficulty. Bedrest x 1 hour, VS q15min x 4.
[2025-03-02] MEDS: ROXICODONE 5 MG PO ×4 (09:00→22:35)
--- NOTE | 2025-03-02 09:14 | PTCARENOTE ---
CT WASTEWATER PROJECT MANAGER removed pacer wires this AM. AFter an hour, pt remains stable with no additional output through mediastinal drains. CASTING SUPERVISOR removed his 2 mediastinal tubes. PT complaining of severe back pain overnight. This appears to be improving after
having wires and tubes removed. Additional IV Lasix given this morning. R IJ cordis intact, with NSS infusing. Call bhat within reach.
--- NOTE | 2025-03-02 11:20 | CM ---
CM following for DC planning needs.
Met w/ patient at bedside. Patient POD#[address] Surg. He reports that he is feeling well.
DC plan reviewed; anticipated DC plan is for home w/ CT Transitional Care RN.
CM to cont. to follow.
[2025-03-02] MEDS: FERRLECIT 110 MG IV (13:28)
--- NOTE | 2025-03-02 14:11 | W.PN.CARDCBS ---
Addendum entered and electronically signed by Monet Mix DO 03/02/25 17:50:
I saw and examined the patient.
The Full Stack Developer's note was reviewed and I agree with the note.
Comment: Patient seen and examined. Chart/telemetry reviewed. He offers no complaints and has been ambulating in the halls without symptoms.
GEN: No distress, awake, oriented x3.
HEENT: mmm
LUNGS: CTA bilaterally, no wheezes/rales
CV: Reg, S1/S2, no murmur, + rub
ABD: soft, BS+, NT/ND
EXT: No cyanosis, clubbing, edema
Plan:
-s/p CABG x3 (in situ GALLEGO to LAD, GALLEGO to ISAMAR Y to diagonal to OM), RASHAWN clip 02/28/2025
- Doing well and hemodynamically stable
-Postop anemia with hemoglobin 7-transfuse as needed and monitor CBC/platelets
-Maintaining sinus rhythm; Continue amiodarone prophylaxis and low-dose metoprolol
-CT surgery discontinued chest tubes
-Continue postoperative supportive care
History of recent inferior ST elevation myocardial infarct 01/20/2025 status post drug-eluting stent to RCA
- On aspirin and Plavix with recent RCA stent 01/20/2025
- continue lipitor 80mg QPM
Original Note:
Today's Communication / Plan
-
Continue postop care
Follow hemoglobin
Impression / Plan
-
PCP: Mary Edmondson
Primary sales agent trading stamps: Dr. Royce Hernandez of [facility]
Impression:
Chest pain with STEMI s/p PCI/stent of RCA with additional CADz leading to CABG: GALLEGO-LAD and [id number]-OM and RASHAWN ligation 02/28/25
History of multivessel coronary artery disease scheduled for CABG 03/01/2025
Elevated troponin
ST elevation [place] 01/20/2025 with SCARLETT to RCA
Diabetes mellitus
Hypertension
Hyperlipidemia
Bipolar disorder
History of alcoholism
History of drug use, on Suboxone
Anxiety
PTSD
Spinal stenosis
GERD
Anemia
history of PE
Previous cardiovascular testing:
Echo 02/20/2025: Normal LV size, wall thickness, LVEF 50 to 55%, basal inferior hypokinesis, structurally normal mitral valve with mild to moderate MR. Normal RV size and function
Cardiac cath 01/20/2025:prox OM1 60 to 70% stenosis; LAD: prox tubular lesion, slightly kinked midportion of LAD;, D1: large diagonal w/70-80% proximal dz
Plan:
-s/p CABG x3 (in situ GALLEGO to LAD, GALLEGO to ISAMAR Y to diagonal to OM), RASHAWN clip 02/28/2025
- Overall heart rates trend tachycardic on review of telemetry. In sinus. Hemoglobin down to 7.0 on 03/02 despite dose of IV Lasix yesterday. He reports some mild lightheadedness with ambulation. Suspect component of tachycardia secondary to
anemia. Defer need for transfusion to primary service
- On aspirin and Plavix with recent RCA stent 01/20/2025
- Reports pain well-controlled
- continue lipitor 80mg QPM
- continue post op care
- encouraged IS/OOB
- d/w nursing. d/w CT surgery EDUCATION PROGRAM MANAGER
Progress Note - Underlay Stitcher
Subjective
Date of Service: March 02, 2025
Reports pain well-controlled. Reports some mild lightheadedness with ambulation
Objective
Labs:
03/02/25 04:05
03/02/25 04:05
Labs
Hgb 7.0 g/dL (13.0-18.0) L 03/02/25 04:05
Hct 22.1 % (39.0-52.0) L 03/02/25 04:05
Plt Count 196 10^3/uL (130-400) 05/01/25 04:05
PT 15.5 Sec (11.4-14.6) H 03/01/25 02:02
INR 1.20 03/01/25 02:02
APTT 26.1 Sec (23.4-35.0) 02/28/25 15:18
Sodium 137 mmol/L (135-145) 03/02/25 04:05
Potassium 4.3 mmol/L (3.5-5.1) 03/02/25 04:05
BUN 26 mg/dl (9-20) H 03/02/25 04:05
Creatinine 1.3 mg/dL (0.7-1.3) 03/02/25 04:05
Glucose 143 mg/dl (70-99) H 03/02/25 04:05
Vital Signs and I&O:
Vital Signs
Temp Pulse Resp BP Pulse Ox
99.0 F 103 18 114/52 96
03/02/25 07:52 03/02/25 12:00 03/02/25 04:09 03/02/25 09:57 03/02/25 12:12
Vital Signs
Temp Pulse Resp BP Pulse Ox
99.0 F 103 18 114/52 96
03/02/25 07:52 03/02/25 12:00 03/02/25 04:09 03/02/25 09:57 03/02/25 12:12
Intake & Output
02/28/25 03/01/25 03/02/25 03/03/25
07:59 07:59 07:59 07:59
Intake Total 3150 / 3150 1195.7 / 1206.1 1134.8 / 1134.8
Output Total 1160 / 1195 1425 / 1425 900 / 900
Balance 3150 / 3150 35.7 / 11.1 -290.2 / -290.2 -900 / -900
Physical Exam
Physical Exam
GEN: No distress, awake, oriented x3.
HEENT: supple, anicteric, mmm, EOMI
LUNGS: CTA bilaterally, no wheezes/rales
CV: Reg, S1/S2, no murmur, + rub
ABD: soft, BS+, NT/ND
EXT: No cyanosis, clubbing, edema
NEURO: Gross non-focal
SKIN: Warm, pink, dry. No rash. Sternotomy incision clean dry and intact.
[2025-03-02 16:01] LABS: Glucose - Point of Care 129 mg/dl (70-99)
[2025-03-02] MEDS: NSS IV (17:10)
[2025-03-02 18:46] LABS: Glucose - Point of Care 204 mg/dl (70-99)
[2025-03-02] MEDS: NOVOLOG FLEXPEN-MODERATE RESISTANCE 3 UNITS SC (18:46)
--- NOTE | 2025-03-02 20:32 | PTCARENOTE ---
Assumed care of pt from christine RN. Pt is AAOx3. Appropriate. THORNTON. Sinus tach on the tele monitor. HR 100s. BP stable. No wires. Palpable pulses throughout. No edema. Pt on RA. POX 95%. Lung sounds diminished in B/L base. CT site C/D/I. Deep
breathing and IS encouraged. Abdomen soft/nontender. +BS. Pt voiding w/o issue. +BM. No nausea. All surgical sites stable. Right IJ cordis and PIV x1 intact. Stand-by assist. See MAR for pain medication administration. See worklist for full nursing
assessment and interventions. Call bhat within reach.
[2025-03-02] MEDS: LANTUS 0.2 UNITS SC (21:40)
[2025-03-02 21:41] LABS: Glucose - Point of Care 179 mg/dl (70-99)
[2025-03-02] MEDS: SEROQUEL 400 MG PO (22:36)
[2025-03-03] VITALS (14 sets, daily range): BP systolic 111–129; BP diastolic 58–93; O2SAT 98; BMI 29.6
--- NOTE | 2025-03-03 00:08 | PTCARENOTE ---
No acute change in assessment. SR to sinus tach on the tele monitor. HR 90s-100s. BP stable. Pt on RA. POX 94-96%. All surgical sites stable. Voiding w/o issue. Call bhat within reach.
--- NOTE | 2025-03-03 02:19 | W.PN.CT ---
Addendum entered and electronically signed by PORFIRIO Barbosa 03/03/25 18:39:
[facility] QUERY RESPONSE
Acute non cardiogenic pulmonary edema
Original Note:
Today's Communication / Plan
-
-pod #2
-no issues overnight, no complaints, ambulates in hallways
-follow Hg - 6.0 today and repeat was 7.0 (7.0 on 03/02, 7.3 pm 03/01, 8.5 on 02/28). BP is stable, no hypotension, asymptomatic
-will hold off blood as long as he's asymptomatic
-diurese with 40 iv bid Lasix
-? small R PTX- follow radiology report
-Cont. current meds (ASA, Plavix, Lipitor, Amiodarone 200 tid, Colchicine 0.3 qd, Subutex, Seroquel, Buspar, Lopressor 12.5 bid, Feosol, vit C)
-monitor Qt on Amio and Seroquel
-encourage IS, OOB
-appreciate everyone's input
Assessment / Plan
-
Assessment:
S/p Sternotomy/Multi arterial coronary artery bypass grafting x 3 (In situ GALLEGO to LAD, GALLEGO-ISAMAR Y to Diag to OM)/Left atrial appendage exclusion [35 mm device, serial #[id number]], by Dr. Validvia,
02/28/25, pod#3
-Multivessel CAD
-Hx STEMI S/p SCARLETT to RCA, 01/20/25
-Brilinta washout
-LVEF 60% per intraop TENA
-Moderate MR
-HTN
-HLD
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
-Hx PE
-Spinal stenosis
-Osteoarthritis
-GERD
-PTSD
-hx IVDU (on Suboxone @ home, transitioned to Subutex postop)
-Hx ETOH abuse
-Anemia
-Hx C-difficile
-SBO
-Perforated diverticulitis S/P hemicolectomy
-Acute postop blood loss/Anemia on preop Anemia (stable without blood transfusion)
-Acute introap coagulopathy (transfused 2FFP intraop)
-Acute postop atelectasis
-Acute postop hypovolemia with subsequent hypervolemia
-Suspected postop acute pericarditis, ST elevations noted on EKG, as well as +rub
-ARIANA
Discussed patient care with: Nursing and Care Team
Subjective
Procedure
S/p Sternotomy/Multi arterial coronary artery bypass grafting x 3 (In situ GALLEGO to LAD, GALLEGO-ISAMAR Y to Diag to OM)/Left atrial appendage exclusion [35 mm device, serial #[id number]]
-
Date of Service: March 03, 2025
Objective Data
-
PT 15.5 Sec (11.4-14.6) H 03/01/25 02:02
INR 1.20 03/01/25 02:02
APTT 26.1 Sec (23.4-35.0) 02/28/25 15:18
Vital Signs
Vital Signs
Temp Pulse Resp BP Pulse Ox
98.5 F 87 18 113/60 94
03/03/25 00:05 03/03/25 02:00 03/03/25 00:05 03/03/25 00:05 03/03/25 02:00
CT Intake/Output/Weight
03/02/25 03/02/25 03/03/25
06:59 18:59 06:59
Intake Total 1020 / 1145.2 40 / 40
Output Total 925 / 1455 900 / 1700 800 / 1700
Balance 95 / -309.8 -900 / -1660 -760 / -1660
SaO2: 94
Physical Exam
-
General: Awake and AOx3
Cardiovascular: Regular rate & rhythm, No Murmurs and No Rub
Respiratory: Decreased Breath Sounds
Sternum: Stable
Incision: Clean and Dry
Extremities: Other
Abdomen: soft, nontender, nondistended, + bowel sounds, + BM
Data Reviewed
-
Lab Results: Results Reviewed
Medications: Active Meds Reviewed
Chest X-Ray: Report Reviewed and Image Reviewed
ECG: Report Reviewed and Image Reviewed
[2025-03-03] MEDS: NSS 500 IV (03:26)
--- NOTE | 2025-03-03 03:41 | PTCARENOTE ---
No acute change in assessment. Pt is SR on the tele monitor. HR 80s. BP stable. Pt on RA. POX 94-96%. All surgical sites stable. Labs drawn and sent. Call bhat within reach.
[2025-03-03 03:54] LABS: Hematocrit 19.4 % (39.0-52.0); Mean Corp Hgb Conc. 30.9 g/dL (33.0-37.0); Mean Corpuscular Hgb 23.4 pg (27.0-31.0); Mean Corpuscular Volume 75.8 fL (80.0-94.0); Platelet Count 207 10^3/uL (130-400); Red Blood Cell Count 2.56 10^6/uL (4.70-6.10); Red Cell Dist. Width 16.1 % (11.5-14.5); White Blood Cell Count 7.7 10^3/uL (4.8-10.8)
[2025-03-03 04:02] LABS: Blood Urea Nitrogen 20 mg/dl (9-20); Calcium 8.1 mg/dl (8.4-10.2); Carbon Dioxide 28 mmol/L (22-30); Chloride 107 mmol/L (98-107); Estimated Creatinine Clearance 97 ml/min; Glucose 94 mg/dl (70-99); Magnesium 2.4 mg/dl (1.6-2.3); Potassium 4.1 mmol/L (3.5-5.1); Sodium 141 mmol/L (135-145); eGFR > 60.00
[2025-03-03] MEDS: ROXICODONE 5 MG PO ×3 (04:21→19:58)
--- NOTE | 2025-03-03 04:30 | PTCARENOTE ---
Pt hemoglobin 6.0. CTPA notified. Pt VSS. HR 80s. BP 112/67. POX 96%. Denies lightheadedness/dizziness at this time. Instructed to ring call bhat for assistance OOB. Call bhat within reach.
[2025-03-03] MEDS: TYLENOL 1000 MG PO ×3 (05:26→23:03)
[2025-03-03 06:01] LABS: Hematocrit 22.2 % (39.0-52.0)
--- NOTE | 2025-03-03 07:52 | PTCARENOTE ---
Pt rang call home, Pt demanding to get re weighed , and appears agitated this am. Pt does not want to stay in hospital any longer. Pt educated on post op issues needing to be addressed to day. states understanding.
[2025-03-03] MEDS: BACTROBAN 2% OINTMENT 1 APPLIC NASAL ×2 (08:07→19:56)
[2025-03-03] MEDS: SENOKOT-S 1 TABLET PO ×2 (08:08→19:57)
[2025-03-03] MEDS: PLAVIX 75 MG PO (08:08)
[2025-03-03] MEDS: LOW STRENGTH ASPIRIN 81 MG PO (08:08)
[2025-03-03] MEDS: LIPITOR 80 MG PO (08:08)
[2025-03-03] MEDS: NEURONTIN 100 MG PO ×3 (08:08→23:03)
[2025-03-03] MEDS: LIORESAL 10 MG PO ×2 (08:08→19:57)
[2025-03-03] MEDS: LASIX 40 MG IV ×2 (08:08→16:08)
[2025-03-03] MEDS: LOPRESSOR 12.5 MG PO ×2 (08:08→19:57)
[2025-03-03] MEDS: FEOSOL 325 MG PO (08:08)
[2025-03-03] MEDS: PROTONIX 40 MG PO (08:08)
[2025-03-03] MEDS: VITAMIN C 500 MG PO (08:09)
[2025-03-03] MEDS: PACERONE 200 MG PO ×3 (08:09→23:03)
[2025-03-03] MEDS: COLCHICINE 0.3 MG PO (08:09)
[2025-03-03] MEDS: BUSPAR 10 MG PO ×2 (08:09→19:56)
[2025-03-03] MEDS: LIDOCAINE 4% PATCH TOPICAL (08:09)
[2025-03-03] MEDS: SUBUTEX 8 MG SL (08:09)
--- NOTE | 2025-03-03 09:09 | W.PN.UPDATE ---
Update Note
Progress Note Update
Phone conversation with Pain management Dr. Adrienne Miller ([phone]): Called patient to discuss post discharge pain management strategy as patient on Suboxone and transition to Subutex while hospitalized. Patient states would rather not to
go back on Suboxone. Physician stated patient did not show for his last scheduled appointment. She states she would not transition patient to Subutex and recommends patient call her if more Suboxone needed on discharge. Dr. Miller
recommended to continue our current medication regime of lidocaine patch, gabapentin, and Tylenol [id number] and eliminate oxycodone. Patient notified of this discussion and advised to call Dr. Miller for further Suboxone dosages if
needed on discharge.
[2025-03-03 09:10] LABS: Glucose - Point of Care 135 mg/dl (70-99)
--- NOTE | 2025-03-03 09:24 | PTCARENOTE ---
Pt apologized to this RN. States he woke up frustrated. Ambulating in hallwayl
[2025-03-03] MEDS: NOVOLOG FLEXPEN-MODERATE RESISTANCE SC ×2 (09:39→18:04)
--- NOTE | 2025-03-03 11:34 | PTCARENOTE ---
Ambulating in hallway at [facility]. Medicated for pain as needed. VSS. Assessment otherwise unchanged from prior.
[2025-03-03 12:10] LABS: Glucose - Point of Care 230 mg/dl (70-99)
--- NOTE | 2025-03-03 12:26 | CM ---
CM following for DC planning needs.
Met w/ patient at bedside. Pt. POD#3, feels well. He is hopeful for DC over weekend or 'as soon as they tell me'.
We reviewed DC plans, follow up MD appointments and visit from CT Transitional Care RN.
CM to cont. to follow.
--- NOTE | 2025-03-03 12:31 | W.PN.CARDCBS ---
Today's Communication / Plan
-
Supportive postoperative care
Monitor hemoglobin but defer management to CT surgery
Will sign off, recall if needed
Impression / Plan
-
PCP: Mary Edmondson
Primary fat pressroom worker: Dr. Royce Hernandez of [facility]
Impression:
Chest pain with STEMI s/p PCI/stent of RCA with additional CADz leading to CABG: GALLEGO-LAD and OBNQ-[id number]-Ddsu-OM and RASHAWN ligation 02/28/25
History of multivessel coronary artery disease scheduled for CABG 03/01/2025
Elevated troponin
ST elevation [place] 01/20/2025 with SCARLETT to RCA
Diabetes mellitus
Hypertension
Hyperlipidemia
Bipolar disorder
History of alcoholism
History of drug use, on Suboxone
Anxiety
PTSD
Spinal stenosis
GERD
Anemia
history of PE
Previous cardiovascular testing:
Echo 02/20/2025: Normal LV size, wall thickness, LVEF 50 to 55%, basal inferior hypokinesis, structurally normal mitral valve with mild to moderate MR. Normal RV size and function
Cardiac cath 01/20/2025:prox OM1 60 to 70% stenosis; LAD: prox tubular lesion, slightly kinked midportion of LAD;, D1: large diagonal w/70-80% proximal dz
Plan:
-s/p CABG x3 (in situ GALLEGO to LAD, GALLEGO to ISAMAR Y to diagonal to OM), RASHAWN clip 02/28/2025
- Overall heart rates trend tachycardic on review of telemetry. In sinus. Hemoglobin down to 7.0 on 03/03 [spoke with CT surgery. No plan for transfusion. They will give more Lasix as they are concerned it may be delusional; no improvement of
hemoglobin despite dose of IV Lasix yesterday.]
- Suspect component of tachycardia secondary to anemia.
-Defer need for transfusion to primary service
- On aspirin and Plavix with recent RCA stent 01/20/2025
- continue lipitor 80mg QPM
- continue post op care
- encouraged IS/OOB
- d/w nursing. d/w CT surgery F[employer] W[employer]ER
- Will sign off, recall if needed
Progress Note - Parking Enforcement Manager
Subjective
Date of Service: March 03, 2025
Patient seen and examined. Overall he is frustrated by need for longer hospitalization due to ongoing anemia. No chest pain or pressure. Ambulated around unit yesterday without significant dizziness or lightheadedness.
Objective
Labs:
03/03/25 05:55
03/03/25 03:23
Labs
Hgb 7.0 g/dL (13.0-18.0) L 03/03/25 05:55
Hct 22.2 % (39.0-52.0) L 03/03/25 05:55
Plt Count 207 10^3/uL (130-400) 03/03/25 03:23
PT 15.5 Sec (11.4-14.6) H 03/01/25 02:02
INR 1.20 03/01/25 02:02
APTT 26.1 Sec (23.4-35.0) 02/28/25 15:18
Sodium 141 mmol/L (135-145) 03/03/25 03:23
Potassium 4.1 mmol/L (3.5-5.1) 03/03/25 03:23
BUN 20 mg/dl (9-20) 03/03/25 03:23
Creatinine 1.0 mg/dL (0.7-1.3) 03/03/25 03:23
Glucose 94 mg/dl (70-99) 03/03/25 03:23
Vital Signs and I&O:
Vital Signs
Temp Pulse Resp BP Pulse Ox
98.4 F 95 16 111/63 94
03/03/25 11:32 03/03/25 11:30 03/03/25 11:32 03/03/25 11:08 03/03/25 11:32
Vital Signs
Temp Pulse Resp BP Pulse Ox
98.4 F 95 16 111/63 94
03/03/25 11:32 03/03/25 11:30 03/03/25 11:32 03/03/25 11:08 03/03/25 11:32
Intake & Output
03/01/25 03/02/25 03/03/25 03/04/25
06:59 06:59 06:59 06:59
Intake Total 1185.3 / 1195.7 1145.2 / 1145.2 70 / 70 380 / 380
Output Total 1130 / 1160 1455 / 1455 1700 / 1700 1500 / 1500
Balance 55.3 / 35.7 -309.8 / -309.8 -1630 / -1630 -1120 / -1120
Physical Exam
Physical Exam
GEN: No distress, awake, oriented x3.
HEENT: supple, anicteric, mmm, EOMI
LUNGS: CTA bilaterally, no wheezes/rales
CV: Reg, S1/S2, no murmur,
ABD: soft, BS+, NT/ND
EXT: No cyanosis, clubbing, edema
NEURO: Gross non-focal
SKIN: Sternotomy incision clean dry and intact.
[2025-03-03] MEDS: NOVOLOG FLEXPEN-MODERATE RESISTANCE 3 UNITS SC (12:45)
[2025-03-03] MEDS: FERRLECIT 110 MG IV (12:48)
--- NOTE | 2025-03-03 14:53 | PN.CDI ---
CDI
- -
CDI:
Physician Documentation Request
Admit Date: 02/24/25 17:36
Dear Caro Mcpherson,
Patient admitted with NSTEMI and CAD.
03/03 CT note, 'S/p Sternotomy/Multi arterial coronary artery bypass grafting x 3 (In situ GALLEGO to LAD, GALLEGO-ISAMAR Y to Diag to OM)/Left atrial appendage exclusion [35 mm device, serial #[id number]], by Dr. Valdivia.'
02/28 TENA,'CONCLUSION: Overall LVEF is approximately 60% with no RWMA.
03/03 Chest x-ray, 'Impression: Mild interstitial prominence suggestive of mild pulmonary edema.
Patient received IV Lasix 20 mg on 03/01, IV Lasix 40 mg on 03/02 and IV Lasix 40 mg on 03/03.
Please provide in your note the diagnosis associated with the above findings:
Acute diastolic CHF
Acute non cardiogenic pulmonary edema
Other
Use of terms such as suspected, likely, concern for, or probable (associated with a specific diagnosis that is being evaluated, monitored, or treated as if it exists) are acceptable and can be coded in the inpatient setting, when documented at the
time of discharge.
Thank you,
Maci DE LA FUENTE,RN,CCDS
CDI Specialist
Available via [place] text
Please use your independent medical judgment in providing your response.
--- NOTE | 2025-03-03 17:06 | PTCARENOTE ---
Napping intermittently. Denies pain at present. Provided emotional support over fears of going home. Feels better after. VSS. Assessment otherwise unchanged from prior.
[2025-03-03 17:47] LABS: Glucose - Point of Care 133 mg/dl (70-99)
--- NOTE | 2025-03-03 20:00 | PTCARENOTE ---
Report received from PAOLA Emmanuel. Walking rounds done. Pt awake, alert, oriented x 4. Speech clear. Equal extremity strength x 4. Pt on room air. Sats 95%. BBS present. Denies dyspnea. CDB and IS encouraged. IS peak 1500 mls. Shallow breathing at
times due to sternal pain. Roxicodone 5 mg po given for pain. See MAR. Audible heart tones. Pt in ST-SR. Normotensive. For pulse and wound assessments, see flowsheets. Belly soft, nontender. Normoactive bs x 4. Denies pain. Reports passing flatus.
Pt voids clear, yellow urine in toilet. Walks into BR independently. Ongoing plan of care.
[2025-03-03] MEDS: TORADOL 15 MG IV (22:53)
--- NOTE | 2025-03-03 23:00 | PTCARENOTE ---
Pt c/o sternal pian. Toradol 15 mg IV given through new IV started to LFA #20. RFA #18 IV leaking at site. Pt c/o soreness to coccyx. Site assessed. Blanchable redness present. New sacral optifoam applied. Pt encouraged to turn from side to side prn
and q 2 hours.
[2025-03-03] MEDS: SEROQUEL 400 MG PO (23:03)
[2025-03-03] MEDS: LANTUS 0.2 UNITS SC (23:12)
[2025-03-03 23:41] LABS: Glucose - Point of Care 219 mg/dl (70-99)
[2025-03-04] VITALS (11 sets, daily range): BP systolic 99–144; BP diastolic 59–95; BMI 29.0
[2025-03-04] MEDS: LOPRESSOR 2.5 MG IV (00:51)
--- NOTE | 2025-03-04 01:25 | PTCARENOTE ---
Pt went to BR to void clear, yellow urine. Became tachycardic, rate 130-140's. Pt sitting in chair. He stated his knees of the bed were elevated and it was challenging for him to get OOB. Denies dyspnea, denies lightheadedness, denies dizziness.
Denies pain. Tsilina. PA aware and at bedside. Pt helped back to bed. EKG done, shown to PA. Lopressor 2.5 mg IV given. SBP 103>115>99. HR down to 120's. After Lopressor 2.5 mg IV given, HR 98-99 bpm. Pt sleeping. Sat down to 91% while asleep. O2 at
1L/NC applied. Sats increased to 95-97%. Pt informed to call RN when he needs to get OOB. Pt agreed.
--- NOTE | 2025-03-04 05:00 | PTCARENOTE ---
Addendum entered by Mynor Gerard RN 03/04/25 06:02:
Currently sleeping.
Original Note:
Labs drawn and sent. Pt remains in SR. Rate 80-90's. 1L/NC.
[2025-03-04 05:46] LABS: Hematocrit 20.4 % (39.0-52.0); Hemoglobin 6.4 g/dL (13.0-18.0); Mean Corp Hgb Conc. 31.4 g/dL (33.0-37.0); Mean Corpuscular Hgb 24.1 pg (27.0-31.0); Mean Corpuscular Volume 76.7 fL (80.0-94.0); Mean Platelet Volume 10.2 fL (7.4-10.4); Platelet Count 239 10^3/uL (130-400); Red Blood Cell Count 2.66 10^6/uL (4.70-6.10); Red Cell Dist. Width 16.6 % (11.5-14.5); White Blood Cell Count 6.4 10^3/uL (4.8-10.8)
[2025-03-04] MEDS: TYLENOL 1000 MG PO ×3 (05:57→22:37)
[2025-03-04 06:01] LABS: Blood Urea Nitrogen 16 mg/dl (9-20); Calcium 8.1 mg/dl (8.4-10.2); Carbon Dioxide 29 mmol/L (22-30); Chloride 104 mmol/L (98-107); Estimated Creatinine Clearance 88 ml/min; Glucose 142 mg/dl (70-99); Magnesium 2.1 mg/dl (1.6-2.3); Potassium 4.1 mmol/L (3.5-5.1); Sodium 141 mmol/L (135-145); eGFR > 60.00
--- NOTE | 2025-03-04 06:05 | W.PN.CT ---
Addendum entered and electronically signed by Valentin Restrepo MD 03/04/25 09:30:
I saw and examined the patient.
The PA's note was reviewed and I agree with the note.
Comment:
POD#4 (not POD#2 - error in note below) s/p CABG x 3, ELAA
Overnight patient w/ sinus tachycardia in 140s w/ ambulation (? A-flutter w/ 2:1) - given IV lopressor - better rate control this AM
Transfuse 1U PRBC for Hgb 6.4
Check 2v CXR today - small R PTX on prior CXR - will check portable now
OOB/IS/ambulate
D/C planning for 1-2 days
Original Note:
Today's Communication / Plan
-
-pod #2
-no complaints, ambulates in hallways
-tachy 140s walking to the bathroom overnight- difficult to tell on tele if sinus tach or a-flutter with 2:1 conduction. ECG showed sinus tach 108 bpm. po Lopressor increased to 25 bid
-diuresed >2400 past 24 hrs with bid Lasix - continue diuresis
-follow Hg - 6.4 today (6-7 on 03/03, 7.0 on 03/02, 7.3 pm 03/01, 8.5 on 02/28). BP is stable, no hypotension, remains asymptomatic. Per Dr Valdivia, will give 1 pRBC
-small R PTX- follow 2v-CXR today
-Cont. current meds (ASA, Plavix, Lipitor, Amiodarone 200 tid, Colchicine 0.3 qd, Subutex, Seroquel, Buspar, Lopressor 25 bid, Feosol, vit C)
-monitor Qt on Amio and Seroquel
-encourage IS, OOB
-appreciate everyone's input
-pt to resume Suboxone and no narcs on discharge
-possible d/c soon
Assessment / Plan
-
Assessment:
S/p Sternotomy/Multi arterial coronary artery bypass grafting x 3 (In situ GALLEGO to LAD, GALLEGO-ISAMAR Y to Diag to OM)/Left atrial appendage exclusion [35 mm device, serial #[id number]], by Dr. Valdivia,
02/28/25, pod#4
-Multivessel CAD
-Hx STEMI S/p SCARLETT to RCA, 01/20/25
-Brilinta washout
-LVEF 60% per intraop TENA
-Moderate MR
-HTN
-HLD
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
-Hx PE
-Spinal stenosis
-Osteoarthritis
-GERD
-PTSD
-hx IVDU (on Suboxone @ home, transitioned to Subutex postop)
-Hx ETOH abuse
-Anemia
-Hx C-difficile
-SBO
-Perforated diverticulitis S/P hemicolectomy
-Acute postop blood loss/Anemia on preop Anemia (stable without blood transfusion)
-Acute introap coagulopathy (transfused 2FFP intraop)
-Acute postop atelectasis
-Acute postop hypovolemia with subsequent hypervolemia
-Suspected postop acute pericarditis, ST elevations noted on EKG, as well as +rub
-ARIANA
-Acute postop small R ptx
Discussed patient care with: Nursing and Care Team
Subjective
Procedure
S/p Sternotomy/Multi arterial coronary artery bypass grafting x 3 (In situ GALLEGO to LAD, GALLEGO-ISAMAR Y to Diag to OM)/Left atrial appendage exclusion [35 mm device, serial #[id number]]
-
Date of Service: March 04, 2025
Objective Data
-
Lab Results
03/04/25 04:48
03/04/25 04:48
PT 15.5 Sec (11.4-14.6) H 03/01/25 02:02
INR 1.20 03/01/25 02:02
APTT 26.1 Sec (23.4-35.0) 02/28/25 15:18
Vital Signs
Vital Signs
Temp Pulse Resp BP Pulse Ox
98.3 F 83 16 108/61 98
03/04/25 05:53 03/04/25 05:53 03/04/25 05:53 03/04/25 05:53 03/04/25 05:53
CT Intake/Output/Weight
03/03/25 03/03/25 03/04/25
06:59 18:59 06:59
Intake Total 70 / 70 1310 / 1310
Output Total 800 / 1700 2250 / 2450 200 / 2450
Balance -730 / -1630 -940 / -1140 -200 / -1140
SaO2: 98
Physical Exam
-
General: Awake and AOx3
Cardiovascular: Regular rate & rhythm, No Murmurs and No Rub
Respiratory: Decreased Breath Sounds
Sternum: Stable
Incision: Clean, Dry and Intact
Extremities: Other (trace edema)
Abdomen: soft, nondistended
Data Reviewed
-
Lab Results: Results Reviewed
Medications: Active Meds Reviewed
Chest X-Ray: Report Reviewed and Image Reviewed
ECG: Report Reviewed and Image Reviewed
--- NOTE | 2025-03-04 06:40 | PTCARENOTE ---
Pt with critical H&H. Reported to KOKO Shaikh this am. Pt helped to standing scale, weighed. Pt given CHG bath. Pt helped to recliner chair. Gown changed. KOKO Shaikh in to see pt this am.
[2025-03-04] MEDS: BACTROBAN 2% OINTMENT 1 APPLIC NASAL (08:02)
[2025-03-04] MEDS: COLCHICINE 0.3 MG PO (08:02)
[2025-03-04] MEDS: SUBUTEX 8 MG SL (08:03)
[2025-03-04] MEDS: BUSPAR 10 MG PO ×2 (08:03→19:47)
[2025-03-04] MEDS: FEOSOL 325 MG PO (08:03)
[2025-03-04] MEDS: PACERONE 200 MG PO ×3 (08:03→22:36)
[2025-03-04] MEDS: LOW STRENGTH ASPIRIN 81 MG PO (08:04)
[2025-03-04] MEDS: PROTONIX 40 MG PO (08:04)
[2025-03-04] MEDS: NEURONTIN 100 MG PO ×3 (08:04→22:36)
[2025-03-04] MEDS: SENOKOT-S PO (08:04)
[2025-03-04] MEDS: PLAVIX 75 MG PO (08:04)
[2025-03-04] MEDS: LOPRESSOR 25 MG PO ×2 (08:04→19:49)
[2025-03-04] MEDS: LIORESAL 10 MG PO ×2 (08:04→19:48)
[2025-03-04] MEDS: VITAMIN C 500 MG PO (08:04)
[2025-03-04] MEDS: LIPITOR 80 MG PO (08:04)
--- NOTE | 2025-03-04 08:31 | PTCARENOTE ---
Assumed care of patient from police shift commander RN. Sleeping during initial assessment. Easily arousable. Flat withdrawn affect but appropriate. Type and screen obtained and sent to lab. SR on monitor. Room air 95% Abdomen soft and non tender.
Pulses palpable. Surgical sites c,d,i. Plan for day discussed.
[2025-03-04] MEDS: LIDOCAINE 4% PATCH TOPICAL (08:45)
[2025-03-04] MEDS: LASIX IV ×2 (09:24→14:08)
[2025-03-04 09:43] LABS: Glucose - Point of Care 276 mg/dl (70-99)
[2025-03-04] MEDS: NOVOLOG FLEXPEN-MODERATE RESISTANCE 5 UNITS SC (10:45)
--- NOTE | 2025-03-04 11:53 | PTCARENOTE ---
Transfused with 1 unit PRBC's w/o issue. Pt ambulating at andria in hallway. In better spirits at present after talk with DR Restrepo r/antony why he should stay in hospital 1 more day. VSS. Assessment otherwise unchanged from prior.
[2025-03-04] MEDS: NOVOLOG FLEXPEN-MODERATE RESISTANCE SC ×2 (12:50→18:36)
[2025-03-04 13:37] LABS: Hematocrit 25.2 % (39.0-52.0)
[2025-03-04] MEDS: FERRLECIT 110 MG IV (13:40)
[2025-03-04] MEDS: NSS IV (14:07)
--- NOTE | 2025-03-04 16:07 | PTCARENOTE ---
Ambulating in hallway with family. VSS, HR without significant tachycardia today. In good spirits. Assessment otherwise unchanged from prior
--- NOTE | 2025-03-04 18:11 | PTCARENOTE ---
Pt requesting to shower, assisted in and tolerated w/o issue. Monitor shows NSR after.
[2025-03-04 18:36] LABS: Glucose - Point of Care 132 mg/dl (70-99)
[2025-03-04] MEDS: ROXICODONE 5 MG PO (19:50)
[2025-03-04] MEDS: SENOKOT-S 1 TABLET PO (19:50)
--- NOTE | 2025-03-04 20:00 | PTCARENOTE ---
Report received from PAOLA Emmanuel. Walking rounds done. VS done. Pt assessed. Pt awake, alert, oriented x 4. Speech clear. Moves all extremities with equal strength. Pt on room air. Sats 96%. BBS present. Diminished Bibasilarly. CDB and IS encouraged.
Audible heart tones. Pt in SR. Normotensive. For pulse and wound assessments, see flowsheets. Belly soft, nontender. Normoactive bs x 4. Last BM 03/02/25. Urine clear, yellow. To BR ad andria. Roxicodone 5 mg po for c/o moderate sternal pain. Ongoing
plan of care.
[2025-03-04 22:32] LABS: Glucose - Point of Care 115 mg/dl (70-99)
[2025-03-04] MEDS: LANTUS 0.2 UNITS SC (22:36)
[2025-03-04] MEDS: SEROQUEL 400 MG PO (22:37)
[2025-03-04] MEDS: TORADOL 15 MG IV (22:42)
--- NOTE | 2025-03-04 23:00 | PTCARENOTE ---
VS done. See flowsheet. HS glucose 115. Pt c/o moderate sternal pain. Toradol 15 mg IV given. Other scheduled meds given.
[2025-03-05 02:29] VITALS: BP 123/80
--- NOTE | 2025-03-05 02:30 | PTCARENOTE ---
VS done. Pt sleeping. Remains in SR. Sats 95% on room air.
--- NOTE | 2025-03-05 05:15 | PTCARENOTE ---
Labs drawn and sent. Pt remains in SR, 70-80 bpm. Pt sleeping.
[2025-03-05 05:21] LABS: Hematocrit 22.7 % (39.0-52.0); Hemoglobin 7.2 g/dL (13.0-18.0); Mean Corp Hgb Conc. 31.7 g/dL (33.0-37.0); Mean Corpuscular Hgb 24.7 pg (27.0-31.0); Mean Corpuscular Volume 77.7 fL (80.0-94.0); Mean Platelet Volume 9.7 fL (7.4-10.4); Platelet Count 269 10^3/uL (130-400); Red Blood Cell Count 2.92 10^6/uL (4.70-6.10); Red Cell Dist. Width 17.6 % (11.5-14.5); White Blood Cell Count 7.1 10^3/uL (4.8-10.8)
--- NOTE | 2025-03-05 05:31 | W.PN.CT ---
Addendum entered and electronically signed by Valentin Restrepo MD 03/05/25 09:27:
I saw and examined the patient.
The PA's note was reviewed and I agree with the note.
Comment:
POD#5 s/p CABG x 3, ELAA
Doing well. No complaints. Ambulating in hallway
Check 2-view CXR today - DONE - R apical PTX unchanged, no effusions
Hgb 7.2 today post transfusion yesterday for Hgb 6.4 - ? if Dr. Valdivia requested additional PRBC - will discuss
OOB/IS/ambulate
D/C home later today
Original Note:
Today's Communication / Plan
-
-pod #5
-no complaints, ambulates in hallways
-follow Hg - 7.2 today (received 1UPRBC's yesterday for Hg of 6.4, post transfusion Hg 8.0). BP is stable, no hypotension, remains asymptomatic. Per Dr Valdivia, will give 1 pRBC
-small R PTX- follow 2v-CXR today
-Cont. current meds (ASA, Plavix, Lipitor, Amiodarone 200 tid, Colchicine 0.3 qd, Subutex, Seroquel, Buspar, Lopressor 25 bid, Feosol, vit C)
-encourage IS, OOB
-pt to resume Suboxone and no narcs on discharge
-d/c planning
Assessment / Plan
-
Assessment:
S/p Sternotomy/Multi arterial coronary artery bypass grafting x 3 (In situ GALLEGO to LAD, GALLEGO-ISAMAR Y to Diag to OM)/Left atrial appendage exclusion [35 mm device, serial #[id number]], by Dr. Valdivia,
02/28/25, pod#5
-Multivessel CAD
-Hx STEMI S/p SCARLETT to RCA, 01/20/25
-Brilinta washout
-LVEF 60% per intraop TENA
-Moderate MR
-HTN
-HLD
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
-Hx PE
-Spinal stenosis
-Osteoarthritis
-GERD
-PTSD
-hx IVDU (on Suboxone @ home, transitioned to Subutex postop)
-Hx ETOH abuse
-Anemia
-Hx C-difficile
-SBO
-Perforated diverticulitis S/P hemicolectomy
-Acute postop blood loss/Anemia on preop Anemia (stable without blood transfusion)
-Acute introap coagulopathy (transfused 2FFP intraop)
-Acute postop atelectasis
-Acute postop hypovolemia with subsequent hypervolemia
-Suspected postop acute pericarditis, ST elevations noted on EKG, as well as +rub
-ARIANA
-Acute postop small R ptx
Subjective
Procedure
S/p Sternotomy/Multi arterial coronary artery bypass grafting x 3 (In situ GALLEGO to LAD, GALLEGO-ISAMAR Y to Diag to OM)/Left atrial appendage exclusion [35 mm device, serial #[id number]]
-
Date of Service: March 05, 2025
Objective Data
-
Lab Results
03/05/25 05:08
PT 15.5 Sec (11.4-14.6) H 03/01/25 02:02
INR 1.20 03/01/25 02:02
APTT 26.1 Sec (23.4-35.0) 02/28/25 15:18
Vital Signs
Vital Signs
Temp Pulse Resp BP Pulse Ox
99.7 F 81 15 123/80 95
03/04/25 22:28 03/05/25 03:00 03/05/25 02:29 03/05/25 02:29 03/05/25 02:[address]
CT Intake/Output/Weight
03/04/25 03/04/25 03/05/25
06:59 18:59 06:59
Intake Total 840 / 840
Output Total 200 / 2450
Balance -200 / -1140 840 / 840
SaO2: 95
Physical Exam
-
General: AOx3
Cardiovascular: Regular rate & rhythm
Respiratory: Clear
Sternum: Stable
Incision: Clean, Dry and Intact
Extremities: No Edema
[2025-03-05 05:42] LABS: Blood Urea Nitrogen 13 mg/dl (9-20); Calcium 8.5 mg/dl (8.4-10.2); Carbon Dioxide 30 mmol/L (22-30); Chloride 106 mmol/L (98-107); Estimated Creatinine Clearance 97 ml/min; Glucose 155 mg/dl (70-99); Potassium 4.2 mmol/L (3.5-5.1); Sodium 142 mmol/L (135-145); eGFR > 60.00
[2025-03-05] MEDS: TYLENOL 1000 MG PO (06:34)
[2025-03-05 06:38] VITALS: BP 134/73
[2025-03-05 08:10] VITALS: BP 141/69
[2025-03-05] MEDS: COLCHICINE 0.3 MG PO (08:16)
[2025-03-05] MEDS: BUSPAR 10 MG PO (08:17)
[2025-03-05] MEDS: LIPITOR 80 MG PO (08:17)
[2025-03-05] MEDS: LOPRESSOR 25 MG PO (08:17)
[2025-03-05] MEDS: NEURONTIN 100 MG PO (08:17)
[2025-03-05] MEDS: SUBUTEX 8 MG SL (08:17)
[2025-03-05] MEDS: PACERONE 200 MG PO (08:17)
[2025-03-05] MEDS: FEOSOL 325 MG PO (08:17)
[2025-03-05] MEDS: LOW STRENGTH ASPIRIN 81 MG PO (08:17)
[2025-03-05] MEDS: LIDOCAINE 4% PATCH TOPICAL (08:17)
[2025-03-05] MEDS: PLAVIX 75 MG PO (08:17)
[2025-03-05] MEDS: VITAMIN C 500 MG PO (08:17)
[2025-03-05] MEDS: LIORESAL 10 MG PO (08:17)
[2025-03-05] MEDS: SENOKOT-S PO (08:18)
[2025-03-05] MEDS: LASIX IV (08:18)
[2025-03-05 08:42] VITALS: BMI 29.0
--- NOTE | 2025-03-05 09:13 | PTCARENOTE ---
Assumed care of patient from shift nurse manager RN. MAHAMED x 3. Denies complaint. VSS.. SR on monitor. RA 96%. Surgical sites c,d,i. Pulses palpable. Plan for day discussed.
[2025-03-05] MEDS: NOVOLOG FLEXPEN-MODERATE RESISTANCE SC (10:11)
[2025-03-05] MEDS: PROTONIX 40 MG PO (10:12)
[2025-03-05 11:33] VITALS: BP 121/60
--- NOTE | 2025-03-05 11:55 | W.DCSUMMARY ---
Discharge Summary
Discharge Data
Date of Admission: 02/24/25
Date of Discharge: 03/05/25
Total time spent discharging patient (in min): 40
-
Pending Results: No
Hospital Course
Primary care physician:
Dr. Pat Sewell DO.
Outpatient hydrometallurgical engineer:
Dr. Royce Hernandez MD.
Inpatient consultants:
[facility]
Procedures:
1. Coronary artery bypass grafting x 3 with left internal mammary artery to left anterior descending coronary artery, right internal mammary artery off left internal mammary artery to diagonal in a sequential fashion to obtuse marginal, left atrial
appendage exclusion with number 35 mm clip, and rigid sternal fixation by Dr. William Valdivia MD. on 02/28/25.
Primary Diagnosis:
1. Coronary artery bypass grafting x 3
2. Left atrial appendage exclusion with number [address] elevated myocardial infarction
4. History of drug-eluting stent to the Right coronary artery on 01/20/2025
5. Diabetes mellitus type 2 on insulin
6. Bipolar disorder
7. PTSD
8. Diabetes mellitus retinopathy and neuropathy.
9. Hypertension.
10. Hyperlipidemia.
11. Spinal stenosis.
12. Gastroesophageal reflux disease.
13. Anemia.
14. History of Clostridium difficile.
15. History of hemicolectomy.
16. History of pulmonary embolus
17. Postoperative acute blood loss anemia requiring transfusion with 1 unit of packed red blood cells
Secondary Diagnoses:
1. Coronary artery bypass grafting x 3
2. Left atrial appendage exclusion with number [address] elevated myocardial infarction
4. History of drug-eluting stent to the Right coronary artery on 01/20/2025
5. Diabetes mellitus type 2 on insulin
6. Bipolar disorder
7. PTSD
8. Diabetes mellitus retinopathy and neuropathy.
9. Hypertension.
10. Hyperlipidemia.
11. Spinal stenosis.
12. Gastroesophageal reflux disease.
13. Anemia.
14. History of Clostridium difficile.
15. History of hemicolectomy.
16. History of pulmonary embolus
17. Postoperative acute blood loss anemia requiring transfusion with 1 unit of packed red blood cells
HPI:
Patient is a 49-year-old male who was recently hospitalized with an acute coronary syndrome, status post ST elevated myocardial infarction with emergent stenting to the right coronary artery system. He was found to have multivessel coronary artery
disease and was referred for evaluation for revascularization given his diabetic status. Prior to presenting to his elective surgery date, he presented to [facility]'s emergency department as a non-ST elevated myocardial infarction with
chest pain. Patient remained in house, and his scheduled date was moved up for surgical intervention.
Hospital course:
Patient presented to the operating room on the date described above for the procedure described above. Patient tolerated procedure well. He remained intubated. He was transported from the operating room to the cardiovascular intensive care unit
where he underwent his postoperative recovery. Patient was extubated in routine fashion on postoperative day 0. Patient was noted to be hypertensive preop and his systolic blood pressures were liberated to 100-1 40s.
On postoperative day #1 he was found to have pericarditis and was started on colchicine. His left pleural chest tube was removed. Patient's insulin drip was discontinued and long-acting glargine was restarted. Patient was transitioned to
telemetry. On postoperative day #2 the patient was found to have a small right apical pneumothorax on chest x-ray. Patient's temporary pacing wires were removed and shortly after his mediastinal chest tubes were removed. Patient's hemoglobin was
7 and he was asymptomatic. He was diuresed with Lasix 40 mg IV x 1. On postoperative day 3 the patient's pain Home pain regimen was discussed with his management doctor and outpatient regimen was set in place. Patient's chest x-ray showed a
stable right apical pneumothorax. And his hemoglobin was again less than 7 while being asymptomatic. On postop day #4 the patient had an episode of SVT in the 140s which responded to IV Lopressor. P.o. metoprolol was increased to 25 mg twice
daily. Patient's hemoglobin in the morning was noted to be 6.4 and patient was given a unit of packed red blood cells. His H&H responded appropriately. On postoperative day #5 hemoglobin was stable after transfusion with 1 unit of packed red
blood cells and was 7.2. Patient again was asymptomatic. Two-view chest x-ray showed no surgical concerns, right pneumothorax remained unchanged. Patient's case was discussed with attending physician and he was medically cleared to be discharged
to home.
Home medication changes:
See below
Discharge Plan
-
Patient Disposition: Home (Routine Discharge)
Discharge Diagnosis/Procedures: Coronary artery bypass grafting x 3
Left atrial appendage exclusion with number [address] elevated myocardial infarction
History of drug-eluting stent to the Right coronary artery on 01/20/2025
Diabetes mellitus type 2 on insulin
Bipolar disorder
PTSD
Diabetes mellitus retinopathy and neuropathy.
Hypertension.
Hyperlipidemia.
Spinal stenosis.
Gastroesophageal reflux disease.
Anemia.
History of Clostridium difficile.
History of hemicolectomy.
History of pulmonary embolus
Condition: Good
Diet: Low Cholesterol, Low Sodium and Diabetic, Carb Controlled
Activity: No strenuous activity
Driving Restrictions: Not until seen by your Dr
Bathing Restrictions: OK to Shower
Other Services: Cardiac Rehab
Specialty Instructions: Weigh Daily- Call MD for wt gain/loss 3 lbs overnight/5 lbs in 1 week
Referrals:
CT Transitional Care Nurse [Outside]
(
The Cardiothoracic Transitional Care Nurse will call you to set up a visit in 1-2 days.)
Pat Sewell DO [Family Provider] -
William Valdivia MD [Active] - 04/03/25 12:45 pm
Tayler Hernandez MD [Active] - 06/12/25 10:15 am
Prescriptions:
New
acetaminophen [Tylenol Extra Strength] 500 mg Tablet
1,000 mg PO TID@0600,1400,2200 Qty: 90 0RF
lidocaine 4 % Adhesive Patch,Medicated
1 patch topical DAILY Qty: 30 0RF
Remove Patch [Remove Lidocaine Patch]
1 patch topical DAILY@2000 Qty: 30 0RF
Rx Instructions:
Remove patch nightly
ferrous sulfate [FeroSul] 325 mg (65 mg iron) Tablet
325 mg PO DAILY Qty: 30 0RF
Rx Instructions:
Take for 1 month and then stop
metoprolol tartrate 25 mg Tablet
25 mg PO Q12 Qty: 60 1RF
gabapentin 100 mg Capsule
100 mg PO TID PRN (Reason: nerve pain ) Qty: 30 0RF
Rx Instructions:
take as needed for nerve pain
colchicine 0.6 mg tablet
0.6 mg PO DAILY Qty: 30 0RF
Rx Instructions:
Take for 30 days and then stop
Continued
aspirin 81 mg Tablet,Delayed Release (Dr/Ec)
81 mg PO DAILY
baclofen 10 mg tablet
10 mg PO BID
quetiapine 400 mg tablet
400 mg PO HS
atorvastatin 40 mg Tablet
80 mg PO DAILY
pantoprazole 40 mg Tablet,Delayed Release (Dr/Ec)
40 mg PO DAILY
buspirone 10 mg Tablet
10 mg PO BID
insulin glargine 100 unit/mL (3 mL) Insulin Pen
29 unit SC HS
ticagrelor [Brilinta] 90 mg Tablet
90 mg PO BID
melatonin 10 mg Tablet
10 mg PO HS
buprenorphine-naloxone 8-2 mg film
1 film buccal DAILY
Discontinued
lisinopril 5 mg Tablet
5 mg PO DAILY
metoprolol succinate 25 mg Tablet Extended Release 24 Hr
25 mg PO DAILY
Discharge Orders:
Discharge Patient (As Directed); Ordered 03/05/25
Ordered By: Sherin Murphy
Care Plan Goals
Care Plan Goals:
Problem: Readiness for enhanced knowledge related to diagnosis and treatment plan
Goal: Understand your diagnosis and treatment plan needs, including medications if applicable.
Instructions: Know your diagnosis, underlying causes and treatment plan options, including medications if applicable. Consult with your health care team to learn about your diagnosis and treatment plan, including medications if applicable.
Discharge Date and Time
Discharge Date/Time: 03/05/25 12:54
Print Language: MALAY
--- NOTE | 2025-03-05 12:34 | PTCARENOTE ---
VSS , Awaiting discharge instructions. Assessment unchanged from prior.
--- NOTE | 2025-03-05 13:01 | PTCARENOTE ---
PIV and telemetry pack removed. RN reviewed discharge instructions with patient and family, questions answered. States understanding . Wheeled to car by RN.
== END 2025-03-05 12:54 | disposition home or self-care (01) | DRG 235 ==
LOC: CVICU 17:36
PROVIDERS: Anesthesiology; Internal Medicine; Nurse Practitioner Family; Physician Assistant; Physician Assistant Medical; Registered Nurse; ADMITTING PHYSICIAN Internal Medicine; ATTENDING PHYSICIAN Thoracic Surgery (Cardiothoracic Vascular Surgery); CONSULT PHYSICIAN Internal Medicine Cardiovascular Disease; CONSULT PHYSICIAN Internal Medicine Critical Care Medicine; EMERGENCY PHYSICIAN Emergency Medicine; FAMILY PHYSICIAN Family Medicine
PROC: 30233K1 Transfusion of Nonautologous Frozen Plasma into Peripheral Vein, Percutaneous Approach (ICD-10-PCS; 2025-02-28)
PROC: 5A1221Z Performance of Cardiac Output, Continuous (ICD-10-PCS; 2025-02-28)
PROC: 02100Z9 Bypass Coronary Artery, One Artery from Left Internal Mammary, Open Approach (ICD-10-PCS; 2025-02-28)
PROC: B24BZZ4 Ultrasonography of Heart with Aorta, Transesophageal (ICD-10-PCS; 2025-02-28)
PROC: 02110Z8 Bypass Coronary Artery, Two Arteries from Right Internal Mammary, Open Approach (ICD-10-PCS; 2025-02-28)
PROC: 02L70CK Occlusion of Left Atrial Appendage with Extraluminal Device, Open Approach (ICD-10-PCS; 2025-02-28)
PROC: 30233N1 Transfusion of Nonautologous Red Blood Cells into Peripheral Vein, Percutaneous Approach (ICD-10-PCS; 2025-03-04)
DX: I21.4 Non-ST elevation (NSTEMI) myocardial infarction (principal); J81.0 Acute pulmonary edema; D62 Acute posthemorrhagic anemia; D68.8 Other specified coagulation defects; J98.11 Atelectasis; I30.8 Other forms of acute pericarditis; J95.811 Postprocedural pneumothorax; N17.9 Acute kidney failure, unspecified; F31.9 Bipolar disorder, unspecified; F10.20 Alcohol dependence, uncomplicated; E11.3299 Type 2 diabetes mellitus with mild nonproliferative diabetic retinopathy without macular edema, unspecified eye; E11.40 Type 2 diabetes mellitus with diabetic neuropathy, unspecified; F41.9 Anxiety disorder, unspecified; I25.10 Atherosclerotic heart disease of native coronary artery without angina pectoris; I10 Essential (primary) hypertension; E78.5 Hyperlipidemia, unspecified; K21.9 Gastro-esophageal reflux disease without esophagitis; F43.10 Post-traumatic stress disorder, unspecified; D63.8 Anemia in other chronic diseases classified elsewhere; E11.65 Type 2 diabetes mellitus with hyperglycemia; M62.838 Other muscle spasm; M19.90 Unspecified osteoarthritis, unspecified site; M48.00 Spinal stenosis, site unspecified; E86.0 Dehydration; Y83.2 Surgical operation with anastomosis, bypass or graft as the cause of abnormal reaction of the patient, or of later complication, without mention of misadventure at the time of the procedure; I25.2 Old myocardial infarction; Z79.02 Long term (current) use of antithrombotics/antiplatelets; Z79.4 Long term (current) use of insulin; Z79.82 Long term (current) use of aspirin; Z79.899 Other long term (current) drug therapy; Z82.49 Family history of ischemic heart disease and other diseases of the circulatory system; Z86.711 Personal history of pulmonary embolism; Z87.891 Personal history of nicotine dependence; Z90.49 Acquired absence of other specified parts of digestive tract; Z95.5 Presence of coronary angioplasty implant and graft; Z95.1 Presence of aortocoronary bypass graft
CPT/HCPCS: 36415; 71045; 71046; 80048; 80053; 80061; 81003; 81015; 82248; 82330; 82565; 82607; 82728; 82746; 82805; 82810; 82947; 82962; 83036; 83540; 83550; 83735; 84132; 84302; 84484; 84520; 85014; 85018; 85025; 85027; 85049; 85610; 85730; 86850; 86900; 86901; 86920; 87070; 87086; 93005; 93312; 93320; 93325; 93880; 93923; 93930; 94002; 96365; 99284; C1713; J2916; P9016; P9059